=== PATIENT | male | born 1945 | race Caucasian/White ===

== ENCOUNTER → 2020-01-19 07:20 | Outpatient (CLI) | payer MEDICARE, BC, SELFPAY ==
--- NOTE | 2020-01-19 15:05 | NEURO ---
NCS and/or EMG Patient Report Ordering Doctor: Deuce Coughlin Jr. DATE OF SERVICE: 01/19/20 Amado Hart is a 74-year-old male who presents for electrodiagnostic testing of the left upper limb. He reports numbness and tingling in the left hand. Electrodiagnostic findings: Left median motor nerve demonstrates prolonged distal latency with normal amplitude and conduction velocity. Normal left ulnar motor response. Normal left median ulnar F wave. Prolonged median sensory latency at the wrist. On needle EMG, all muscles tested in the left upper limb showed no evidence of denervation with normal motor unit action potentials. Electrodiagnostic impression: This is an abnormal study in the left upper limb. 1. Electrodiagnostic findings demonstrate left-sided median mononeuropathy. This consistent with a moderate left carpal tunnel syndrome. If there are any further questions, please do not hesitate to contact me.
--- OUTSIDE RECORDS SUMMARY | 2020-05-21 14:59 | XMS RPT_ITS | CCD ---
:1945 External Reference #:[id number] Author Organization [facility] Care Team Providers Name Role Phone Sylvia Coughlin Primary Care Provider Allergies Reported Allergen Reaction(s) Severity Date of Onset Location Lisinopril Cough 11-14-2011 - [facility] ([id number]) Simvastatin 06-22-2009 - [facility] ([id number]) Medications Medication Name Sig Date Prescriber Location fluticasone [facility]ON[facility]) [facility] 50 mcg/actuation [place]angel[place] ([id number]) nasal spray Indications: Viral sinusitis Use 2 Sprays in each nostril once daily. Rinse mouth after use. 1 Bottle 0 06/27/2019 Active Comment: Use 2 Sprays in each nostril once daily. Rinse mouth after use. Losartan losartan (COZAAR) 50 mg 10-04-2019 [facility] (99247) tablet Indications: Essential hypertension Take 1 tablet by mouth once daily. 90 tablet 3 10/04/2019 Active Comment: Take 1 tablet by mouth once daily. venlafaxine EFFEXOR 25 MG TAB Take 07-15-2006 [facility] one(1) tablet twice (28780) daily. 0 07/15/2006 Active Comment: Take one(1) tablet twice dacia ly. Problems Active Problems Category Problem Name Status Date Location Anxiety disorders Chronic anxiety Active 10-29-2018 - [facility] (26689) Disorders of lipid Hyperlipidemia Active 07-13-2013 - [facility] metabolism (18570) Essential hypertension Hypertensive disorder Active 2 - [facility] (78917) Hyperplasia of prostate Benign prostatic Active 08-08-2006 - [facility] hypertrophy with (27434) outflow obstruction Other male genital Impotence Active 03-30-2013 - [facility] disorders (01207) Other male genital Male erectile Active 03-30-2013 - [facility] disorders dysfunction, (67369) unspecified Other nervous system Carpal tunnel syndrome Active [facility] disorders of left wrist (57124) Other nervous system Bilateral carpal tunnel Active [facility] disorders syndrome (68299) Other nutritional; Obese class I Active 10-04-2019 - [facility] endocrine; and metabolic (44 195) disorders Residual codes; Requires vaccination Active [facility] unclassified (16933) Spondylosis; Cervical disc disorder Active 09-03-2011 - [facility] intervertebral disc with radiculopathy (4 8806) disorders; other back problems Past or Other Problems Category Problem Name Status Date Location Other inflammatory Pruritus ani Completed 12-27-2010 - [facility] condition of skin (80036) Results Result Name Value Range Unit Interpretation Flag Date Location cnnurse on [facility] Nurse Visit (FAMPWS) Normal 0 [facility] JOELLE MARIEE ([id number]) 1945 M [facility] Time Provider Department ([id number]) 05/12/20 2:10 PM PR NURSE FAMPWS During your visit today, we recorded the following informati on about you: Referring Provider: SELF [[id number]] Allergies As of Date: 05/12/2020 Noted Allergy Reaction LISINOPRIL 11/14/2011 3 - Cough ZOCOR (SIMVASTATIN) 06/22/2009 Comments: myalgia Date Reviewed: 05/01/2020 Reviewed by: Bradly Sahu - Fully Assessed Reason for Visit: Imm/Inj [58] Cmt: Flu Vaccine Primary Visit Diagnosis:Need for vaccination [Z23] Order(s):INFLUENZA SEASONAL QUADRIVALENT HIGH DOSE AGE 65+ [[id number]] Order #: [id number] Prescriptions as of 05/12/2020 Sig: LOSARTAN 50 MG TABLET Take 1 tablet by mouth once d* FLUTICASONE PROPIONATE 50 MCG* Use 2 Sprays in each nostril * Patient not taking: Reported on 03/16/2020 * EFFEXOR 25 MG TABLET Take one(1) tablet twice willie* Problem List As Of Date 05/12/2020 Noted Resolved BPH with obstruction/lower urinary tract sympto*08/08/2006 Other specified disease of hair and hair follic*08/08/2006 0 10/04/2019 Dysmetabolic syndrome X [E88.81] 08/08/2006 10/04/2019 Acute gastritis without mention of hemorrhage [*10/28/2006 1 10/01/2015 Pruritus ani [L29.0] 12/27/2010 Cervical disc disorder with radiculopathy of ce*09/03/2011 Hypertension [I10] 09/26/2011 ED (erectile dysfunction) [N52.9] 03/30/2013 Trigger ring finger of right hand [M65.341] 07/12/201310/03 Hyperlipidemia with target LDL less than 130 [E*07/13/2013 Impaired fasting glucose [R73.01] 07/31/2016 10/04/2019 Changeable mood [R45.86] 09/01/2017 10/04/2019 More... Chronic anxiety [F41.9] 10/29/2018 Obesity, Class I, BMI 30-34.9 [E66.9] 10/04/2019 Carpal tunnel syndrome of left wrist [G56.02] Encounter Status:Closed by ARLET SÁNCHEZ LPN on 05/12/20 progress on 2020-04 PROGRESS HNO ID: [id number] Normal 05-01-2020 [facility] Author: Bradly Blue ([id number]) Service: ? Author Type: Physician Type: Progress Notes Filed: 05/01/2020 1:25 PM Note Text: Bradly Sahu MD Department of Orthopaedics Orthopaedics [address] [facility] [address] Dept: [phone] Dept May 01, 2020 CHIEF COMPLAINT: Post Op of the Right Hand, Post Op of the L eft Hand, and 1 week 4 days post op (bilateral CTR). HPI Is 11 days status post bilateral carpal tunnel releases. He is doing great. He has improvement in all of his symptoms already. He has no postoperative pain. He is here for suture removal. ASSESSMENT: G56.03 Bilateral carpal tunnel syndrome (primary encounter d lexie) SUMMARY/PLAN: Follow-up as needed Exam: Bilateral incisions look excellent. Healing very nicely with out concerns. Supporting Information Below: Medications: Current Outpatient Medications Medication Sig - losartan (COZAAR) 50 mg tablet Take 1 tablet by mouth once daily. - EFFEXOR 25 MG TAB Take one(1) tablet twice daily. - fluticasone (FLONASE) 50 mcg/actuation nasal spray Use 2 S prays in each nostril once daily. Rinse mouth after use. (Patient not cecy quiroz: Reported on 03/16/2020 ) No current facility-administered medications for this visit. Allergies: Lisinopril and Zocor [Simvastatin] This note was partially generated using [employer] recogni tion system, and there may be some incorrect words, spellings, and punctu ation that were not noted in checking the note before saving. Bradly Sahu MD PROGRESS HNO ID: [id number] Normal 05-01-2020 [facility] Author: Pretty Clark RN [facility] ([id number]) Service: ? Author Type: ? Type: Progress Notes Filed: 05/01/2020 1:25 PM Note Text: AMB ROOMING INTAKE FLOWSHEET DATA Patient presents with: Right Hand - Post Op Left Hand - Post Op 1 week 4 days post op: bilateral CTR Incisions well approximated and without redness, edema or ex udate. Sutures intact. has needed nothing for pain. cnov on 2020-05-01 CNOV Office Visit (ORTHWS) Normal 05-01-20 [facility] JOELLE Christy ([id number]) 1945 [facility] [place] Date Time Provider Department ([id number]) 05/01/20 1:00 PM BRADLY SAHU During your visit today, we recorded the following informati on about you: Pretty Clark RN 05/01/2020 1:25 PM Signed AMB ROOMING INTAKE FLOWSHEET DATA Patient presents with: Right Hand - Post Op Left Hand - Post Op 1 week 4 days post op: bilateral CTR Incisions well approximated and without redness, edema or ex udate. Sutures intact. has needed nothing for pain. Bradly Sahu MD 05/01/2020 1:25 PM Signed Bradly Sahu MD Department of Orthopaedics Orthopaedics [address] [facility] [address] Dept: [phone] Dept May 01, 2020 CHIEF COMPLAINT: Post Op of the Right Hand, Post Op of the Left Hand, and 1 week 4 days post op (bilateral CTR). HPI Is 11 days status post bilateral carpal tunnel releases. Sheri traore is doing great. He has improvement in all of his symptoms already. He has no postoperative pain. He is here for suture removal. ASSESSMENT: G56.03 Bilateral carpal tunnel syndrome (primary encounter d iagnosis) SUMMARY/PLAN: Follow-up as needed Exam: Bilateral incisions look excellent. Healing very nicely with out concerns. Supporting Information Below: Medications: Current Outpatient Medications Medication Sig - losartan (COZAAR) 50 mg tablet Take 1 tablet by mouth once daily. - EFFEXOR 25 MG TAB Take one(1) tablet twice daily. - fluticasone (FLONASE) 50 mcg/actuation nasal spray Use 2 S prays in each nostril once daily. Rinse mouth after use. (Patient ashish dunham: Reported on 03/16/2020 ) No current facility-administered medications for this visit. Allergies: Lisinopril and Zocor [Simvastatin] This note was partially generated using [employer] r [employer] system, and there may be some incorrect words, spellings, and punctuat ion that were not noted in checking the note before saving. Bradly Sahu MD Referring Provider: BRADLY SAHU [[id number]] Allergies As of Date: 05/01/2020 Noted Allergy Reaction LISINOPRIL 11/14/2011 3 - Cough ZOCOR (SIMVASTATIN) 06/22/2009 Comments: myalgia Date Reviewed: 05/01/2020 Reviewed by: Bradly Sahu - Fully Assessed Reason for Visit: 1 week 4 days post op [Other] Cmt: bilateral CTR Post Op [174] Post Op [174] Primary Visit Diagnosis:Bilateral carpal tunnel syndrome [G5 6.03] Prescriptions as of 05/01/2020 Sig: LOSARTAN 50 MG TABLET Take 1 tablet by mouth once d* * EFFEXOR 25 MG TABLET Take one(1) tablet twice willie* FLUTICASONE PROPIONATE 50 MCG* Use 2 Sprays in each nostril * Patient not taking: Reported on 03/16/2020 Problem List As Of Date 05/01/2020 Noted Resolved BPH with obstruction/lower urinary tract sympto*08/08/2006 Other specified disease of hair and hair follic*08/08/2006 0 10/04/2019 Dysmetabolic syndrome X [E88.81] 08/08/2006 10/04/2019 Acute gastritis without mention of hemorrhage [*10/28/2006 1 10/01/2015 Pruritus ani [L29.0] 12/27/2010 Cervical disc disorder with radiculopathy of ce*09/03/2011 Hypertension [I10] 09/26/2011 ED (erectile dysfunction) [N52.9] 03/30/2013 Trigger ring finger of right hand [M65.341] 07/12/201310/03 Hyperlipidemia with target LDL less than 130 [E*07/13/2013 Impaired fasting glucose [R73.01] 07/31/2016 10/04/2019 Changeable mood [R45.86] 09/01/2017 10/04/2019 More... Chronic anxiety [F41.9] 10/29/2018 Obesity, Class I, BMI 30-34.9 [E66.9] 10/04/2019 Carpal tunnel syndrome of left wrist [G56.02] Encounter Status:Closed by BRADLY SAHU MD on 05/01/20 pt ed on 2020-04-20 PT ED HNO ID: [id number] Normal 04-20-2020 [facility] Author: Tristan (Rn) KORTNEY Joyner Blue ([id number]) Service: Nursing Author Type: Registered Nurse Type: Patient Education Filed: 04/20/2020 1:55 PM Note Text: Discharge Instructions were reviewed pre-operatively with th e patient. All questions and concerns were addressed. Tristan Joyner RN PRE OP LEARNING ASSESSMENT PROCEDURE/SURGERY: SURGERY: RIGHT AND LEFT CARPAL TUNNEL REL EASE READINESS TO LEARN COGNITIVE ABILITY: Alert and oriented MOTIVATION TO LEARN: Eager Interested FAMILY SUPPORT: None - Unavailable/disinterested PATIENT LEARNS BEST BY: Individual Instruction Verbal Instruction FACTORS AFFECTING LEARNING: None PHYSICAL LIMITATIONS AFFECTING LEARNING: None Electronically Signed By: Tristan Joyner RN In Department: AMBULATORY SURGERY operative no on OPERATIVE NO HNO ID: [id number] Normal 04-20-20 20 [facility] Author: Bradly Sahu [place] [facility] Service: Orthopaedic Surgery ([id number]) Author Type: Physician Type: Operative Report Filed: 04/21/2020 2:41 PM Note Text: OPERATIVE/PROCEDURE REPORT LOG ID: [id number] SURGERY/PROCEDURE DATE: 04/20/2020 INCISION/PROCEDURE START TIME: 2:03 PM INCISION CLOSE/PROCEDURE END TIME: 2:37 PM SURGEON(S)/PROCEDURALIST(S) AND PRODUCT DEVELOPER(S): Surgeon(s) and Role: * Bradly Sahu - Primary No Additional Staff NAME:Joelle Mariee [id number] DATE: April 21, 2020 AGE: [age] year old SURGEON 1: Bradly Sahu M.D. OPERATION: Bilateral carpal tunnel release, open. ANESTHESIA: MAC with local. PREOPERATIVE DIAGNOSIS: Bilateral carpal tunnel syndrome. POSTOPERATIVE DIAGNOSIS: Bilateral carpal tunnel syndrome. OPERATIVE INDICATIONS: This is a pleasant 74 year old male w ho had worsening, numbness, and tingling. His declined nerve testin g. He exhausted conservative management and in the office, we disc ussed the risks, benefits, alternatives, and potential complications i nvolving carpal tunnel releases and he wished to pursue surgical inte rvention. OPERATIVE FINDINGS: Consistent with postoperative diagnosis. ? Procedure Details: OPERATIVE PROCEDURE: On 04/20/2020, the patient was clearly i dentified in the preoperative area and marked accordingly on the right an d left palms by myself. All other bony landmarks were appropriately padde d in standard fashion. The right upper extremity had a well-padded upper b rachium tourniquet applied with Webril padding and set at 250 mmHg, but not yet inflated. After a betadine swab, the Right and left palms we re injected with 1% lidocaine with epinepherine 1:100,000 for total of 1 5ml, each. The left arm was then, first sterilely prepped and draped in standard fashion. An appropriate time-out was conducted and all in th e room were in agreement, signed consent form was on the chart. A longitudi nal incision was made with in line with the third web space from 1 cm dis geovani of the wrist crease to Avila's cardinal line. I used Bib Rakes to retract the soft tissues. Bipolar electrocautery was used for hemostasis . I bluntly dissected down with Littler scissors to distal edge of the t ransverse carpal ligament until a flash of fat was noted. I directly divided distal edge of the transverse carpal ligament with a #15 john de. Attention was then focused on the proximal portion and I used Littler scissors to bluntly dissect off the volar surface of the transverse carp al ligament. A carpal tunnel and median nerve protection guide was slid d irectly under the ligament for dilation and a second time for appropriate positioning, this was passed freely without any resistance. Subsequently, I selected a mini meniscotome Acworth blade and slid this in the protectiv e guide, completely dividing the transverse carpal ligament. Bib brian es were used to view up the wound to visualize for complete release and a [place] elevator was used to palpate for complete release. At this p oint, The wound was copiously irrigated with normal saline and I close d with 3-0 nylons in horizontal mattress fashion for a total of 3. Xero form gauze, sterile 4 x 4 gauze, sterile, Webril padding was applied. ? I then turned my focused to the right upper extremity. The e xact same steps in sequential fashion were carried out on the right si de, without the need for a tourniquet, as was outlined previously on the left above. At the completion of the procedure, the median nerve was not ed to be completely released both visually and with palpation of the transected Transverse carpal ligament. The wound was copiously irrigate d, tourniquet was taken down. Closure with again completed with 3-0 nylons in horizontal mattress fashion. Xeroform gauze, sterile 4 x 4 g auze, webril padding and a Bias roll was used for final bandage for each hand. There were no complications during the procedures. The patient was safely awoken and transferred to the Postanesthetic Care Unit in stable co ndition. ? ? Pre-Op/Pre-Procedure Diagnosis: Bilateral carpal tunnel synd naty. ? Post-Op/Post-Procedure Diagnosis: Same ? SIGNATURE: Bradly Sahu MD PATIENT NAME: Joelle Mariee DATE: April 20, 2020 TIME: 3:05 PM PAGER/CONTACT #: nursing prog NURSING PROG HNO ID: [id number] [place] 04-20-20 [facility] Author: Trisatn Joyner RN [place] ([id number]) Service: Nursing Author Type: Registered Nurse Type: Nursing Progress Note Filed: 04/20/2020 3:18 PM Note Text: Patient did not experience a fall prior to discharge. Patient did not experience a burn prior to discharge. Tristan Joyner RN NURSING PROG HNO ID: [id number] [place] 04-20-20 [facility] Author: Tristan Joyner RN [place] ([id number]) Service: Nursing Author Type: Registered Nurse Type: Nursing Progress Note Filed: 04/20/2020 3:17 PM Note Text: POST OP LEARNING RESPONSE INSTRUCTION PROVIDED TO: Patient METHOD OF INSTRUCTION: Individual instruction Written instruction - handouts Verbal instruction PATIENT / FAMILY RESPONSE: Information received as demonstra romario by interest and questions FOLLOW-UP PLAN: Patient instructed to call with any further issues SUPPLEMENTAL MATERIAL: None REFERRAL (RECOMMENDATION): None Electronically Signed By: Tristan Joyner RN In Department: AMBULATORY SURGERY NURSING PROG HNO ID: [id number] [place] 04-20-20 [facility] Author: Tristan Joyner RN [place] ([id number]) Service: Nursing Author Type: Registered Nurse Type: Nursing Progress Note Filed: 04/20/2020 2:48 PM Note Text: Patient received in Pacu 2. Resting comfortably sitting in b ed. Color pink. Skin warm. Dressing clean dry and intact . Capillary refill WNL. Ice pack applie d to operative site. No complaints offered. Alfredo Joyner Rn NURSING PROG HNO ID: [id number] [place] 04-20-20 [facility] Author: Heaven Mars RN [place] ([id number]) Service: ? Author Type: Registered Nurse Type: Nursing Progress Note Filed: 04/20/2020 2:43 PM Note Text: Patient did not experience a fall within the Intraoperative area. Patient did not experience a burn within the Intraoperative area. Heaven Mars RN NURSING PROG HNO ID: [id number] Normal 04-20-20 [facility] Author: Tristan RodriguezRn) KORTNEY Joynerveland ([id number]) Service: Nursing Author Type: Registered Nurse Type: Nursing Progress Note Filed: 04/20/2020 1:56 PM Note Text: [facility] PRE-OP NURSING HAND OFF NOTE SBAR Hand off given to Caryl Fischer RN. Hand off was communicated verbally and at the patient's beds ronen and all questions were answered. FALLS/CORDERO Patient did not experience a fall within the Preoperative ar ea. Patient did not experience a burn within the Preoperative ar ea. Tristan Joyner RN history physical on 2020-04-20 HISTORY PHYSICAL HNO ID: [id number] Normal 04-04 [facility] Author: Bradly Blue ([id number]) Service: Orthopaedic Surgery Author Type: Physician Type: HANDP Filed: 04/20/2020 1:50 PM Note Text: UPDATED HISTORY AND PHYSICAL EXAMINATION SERVICE DATE: 04/20/2020 SERVICE TIME: 1:50 PM PHYSICAL EXAM MUST BE COMPLETED ON ADMISSION The History and Physical (completed in the past 30 days) has been reviewed and the patient has been examined. The contents accurately r eflect the patient's condition with the following additions or revision s since the HANDP was completed. Examination indicates no changes. This HANDP can be found in the Electronic Medical Record danielle ed. SIGNATURE: Bradly Sahu MD PATIENT NAME: Joelle Mariee DATE: April 20, 2020 TIME: 1:50 PM PAGER: preop/preproc covid on 2020-04-18 COVID 19 Result Negative for Negative for Normal 04-18-20 [facility] HOT ROLL LAMINATOR COVID19 (SARS COVID19 (SARS Cl miguelito ([id number]) CoV2) by PCR. CoV2) by PCR. Comment: Result Comment: This test wa s developed and its performance characteristics determined by [facility]'s [facility] Medicine [place]. This test has been authorized by FDA under an Emergency Us e Authorization (EUA). This test has been validated in accordance with the FDA's Guidance Document Policy for Diagnostics Testing in Laboratories Certified to Perform High Complexity Testing under CLIA prior to Emergency use Authorization for Coronavir us Disease 2019 during the Public Health Emergency issued on October 02, 2019. Performed By: #### POCOVD ## ## [facility] [address] [place], [place] [address] COVID 19 Source HOT ROLL LAMINATOR UPPER RESPIRATORY TRACT Normal 04-18-2020 [facility] SWAB Blue ([id number]) Comment: Performed By: #### POCOVD ## ## [facility] [address] [place], [place] [address] hosp on 2020-03-21 HOSP Patient:Joelle Mariee Normal 03-21 [facility] MRN: Mirza ([id number]) Height:5' 8(1.727 m) Weight:214 lb 15.2 oz (97.5 kg) Outpatient Medications as of 04/20/20: losartan (COZAAR) 50 mg tablet fluticasone (FLONASE) 50 mcg/actuation nasal spray EFFEXOR 25 MG TAB Admission/Clinic Administered Medications as of 04/20/20: lidocaine-EPINEPHrine (PF) 1 %-1:200,000 30 mL injection lidocaine-EPINEPHrine (PF) 1 %-1:200,000 30 mL injection Problem List: BPH with obstruction/lower urinary tract symptoms [N40.1, 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] Pruritus ani [L29.0] Cervical disc disorder with radiculopathy of cervical region [M50.10] Hypertension [I10] ED (erectile dysfunction) [N52.9] Hyperlipidemia with target LDL less than 130 [E78.5] Chronic anxiety [F41.9] Obesity, Class I, BMI 30-34.9 [E66.9] Carpal tunnel syndrome of left wrist [G56.02] Allergies: Lisinopril Zocor [Simvastatin] Date Verified: 04/20/20 Lab Values No results within the last 30 days for the following basenam es: K,HCT Progress Notes ([facility]): Krissy Farley Ma 03/21/2020 2:36 PM Signed Patient scheduled for bilateral CTR on 04/20/2020 at [facility] under local anesthesia. Post op appointments scheduled and m jean claude to patient. Please sign pre op COVID 19 testing order. Savannah Patel PA-C 03/21/2020 2:43 PM Signed COVID order signed. Krissy Farley Ma 03/24/2020 3:34 PM Signed Surgery and all appointments have been scheduled and mailed to patient. cnpn on 2020-03-21 CNPN Telephone (ORTHWS) Normal 03-21-2020 [facility] JOELLE MARIEE ([id number]) 1945 [facility] Time Provider Department ([id number]) 03/21/20 BRADLY SAHU During your visit today, we recorded the following informati on about you: Krissy Farley Ma 03/21/2020 2:36 PM Signed Patient scheduled for bilateral CTR on 04/20/2020 at [facility] under local anesthesia. Post op appointments scheduled and m jean claude to patient. Please sign pre op COVID 19 testing order. Savannah Patel PA-C 03/21/2020 2:43 PM Signed COVID order signed. Krissy Farley Ma 03/24/2020 3:34 PM Signed Surgery and all appointments have been scheduled and mailed to patient. Allergies As of Date: 03/21/2020 Noted Allergy Reaction LISINOPRIL 11/14/2011 3 - Cough ZOCOR (SIMVASTATIN) 06/22/2009 Comments: myalgia Date Reviewed: 03/16/2020 Reviewed by: Bradly Sahu - Fully Assessed Reason for Visit: Schedule Surgery [1330] Primary Visit Diagnosis:Bilateral carpal tunnel syndrome [G5 6.03] Order(s):SURGICAL REQUEST - ELECTIVE (03/2020) [[id number]] Orde r #: [id number]: 1 PRE-PROCEDURE AND PRE-OPERATIVE COVID [SQPOCOVD] Order #: [id number] FUTURE Prescriptions as of 03/21/2020 Sig: LOSARTAN 50 MG TABLET Take 1 tablet by mouth once d* FLUTICASONE PROPIONATE 50 MCG* Use 2 Sprays in each nostril * Patient not taking: Reported on 03/16/2020 * EFFEXOR 25 MG TABLET Take one(1) tablet twice willie* Problem List As Of Date 03/21/2020 Noted Resolved BPH with obstruction/lower urinary tract sympto*08/08/2006 Other specified disease of hair and hair follic*08/08/2006 0 10/04/2019 Dysmetabolic syndrome X [E88.81] 08/08/2006 10/04/2019 Acute gastritis without mention of hemorrhage [*10/28/2006 1 10/01/2015 Pruritus ani [L29.0] 12/27/2010 Cervical disc disorder with radiculopathy of ce*09/03/2011 Hypertension [I10] 09/26/2011 ED (erectile dysfunction) [N52.9] 03/30/2013 Trigger ring finger of right hand [M65.341] 07/12/201310/03 Hyperlipidemia with target LDL less than 130 [E*07/13/2013 Impaired fasting glucose [R73.01] 07/31/2016 10/04/2019 Changeable mood [R45.86] 09/01/2017 10/04/2019 More... Chronic anxiety [F41.9] 10/29/2018 Obesity, Class I, BMI 30-34.9 [E66.9] 10/04/2019 Carpal tunnel syndrome of left wrist [G56.02] Encounter Status:Closed by KRISSY FARLEY MA on 03/24/20 progress on 2020-03 PROGRESS HNO ID: [id number] Normal 03-16-2020 [facility] Author: Bradly Sahu [place] Service: ? ([id number]) Author Type: Physician Type: Progress Notes Filed: 03/16/2020 1:13 PM Note Text: Bradly Sahu MD Department of Orthopaedics Orthopaedics [address] [place] [address] Dept: [phone] Dept March 16, 2020 CHIEF COMPLAINT: New of the Left Wrist and Left carpal tunne l syndrome (Referrred by Dr. Raysa Coughlin - EMG done on 01/19/20) HPI Patient presents with some ongoing problems in the left hand . 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 No specific pain bu t does have nighttime symptoms. He also has symptoms when he is riding h is tractor. [id number]. Previous nerve test done at local [facility]. ASSESSMENT: G56.03 Bilateral carpal tunnel syndrome (primary encounter d iagnosis) PLAN: We had a lengthy discussion in the office. The risks, benefi ts, alternatives and potential complications both operative and nonoperative treatment for the left carpal tunnel as well as the right wi thout other electrodiagnostic exam on the right were reviewed. He would like to pursue bilateral surgeries under local anesthetic. We will h elp get him scheduled. FOLLOW UP INSTRUCTIONS: As above Mr. Joelle Mariee was advised as to contrast therapies an d/or to take analgesics/anti-inflammatories as needed and all contraindic ations were reviewed. OBJECTIVE: Mr. Joelle Mariee is a pleasant 74 year old in no apparen t distress. Gen:Ht 5' 8 (1.73m) Wt 215 lb (97.5kg) BMI 32.70 kg/(m2 ). nl development, non obese, no deformities ENT: Normocephalic, normal hearing, moist mucosa CV: Pulses:Radial= 2+ and symmetric, capillary refill < 2 se cs, no peripheral edema/varicosities Skin: no rash, bruising or lesions. Good turgor. Psych: cooperative and appropriate, alert and oriented x 3, good mood and affect. Musculoskeletal: Cervical spine has supple range of motion and no tenderness to palpation, Spurling's sign negative. Shoulders and elbows have full ran ge of motion. Negative Tinel's over the cubital tunnel, no subluxation of ulnar nerve at the elbow with flexion. Negative Tinel's over Guyon's can al. Inspection reveals no thenar atrophy. Intact sensation to li ght touch in the radial 3 digits, symmetrically. Sensation intact in the ulnar 2 digits with out intrinsic atrophy/weakness. Positive Tinel's at the wrist, positive carpal tunnel compression testing on the lef t worse than right. No locking or catching of the digits. No tenderness t o palpation or masses noted in the forearm or hands. IMAGING: Electrodiagnostic exam from an outside facility on the left suggest moderate carpal tunnel without any cervical involvement. Supporting Subjective Information Below: Past Medical History: PAST MEDICAL HISTORY Diagnosis Date - BPH W URINARY OBS/LUTS 08/08/2006 - Carpal tunnel syndrome of left wrist - Cervical disc disorder with radiculopathy of cervical perico on 09/03/2011 - Changeable mood 09/01/[address] Myers - ED (erectile dysfunction) 03/30/2013 - Family history of malignant neoplasm lung ca - Hyperlipidemia LDL goal < 130 07/13/2013 - Hypertension 09/26/2011 Past Surgical History: PAST SURGICAL HISTORY Procedure Laterality Date - COLONOSCOP W/ OR W/O BRS SPEC 2001 Colonoscopy - COLONOSCOP W/ OR W/O BRSH SPEC 10/28/2006 Colonoscopy-repeat in - COLONOSCOP W/ OR W/O BRSH SPEC 02/25/2012 Colonoscopy - COLONOSCOP W/ OR W/O BRSH SPEC 07/08/2017 Colonoscopy - EGD W/O OR W/BRUSH/WASH 10/28/2006 EGD Family History: FAMILY HISTORY Problem Relation Age of Onset - Cancer Mother lung - Cancer Father COLON - None Sister - None Brother - Diabetes Brother Social History: Social History Tobacco Use - Smoking status: Former Smoker - Smokeless tobacco: Never Used - Tobacco comment: quit 1970s Substance Use Topics - Alcohol use: No Frequency: Never Drinks per session: Patient refused Binge frequency: Patient refused - Drug use: No Medications: Current Outpatient Medications Medication Sig - losartan (COZAAR) 50 mg tablet Take 1 tablet by mouth once daily. - EFFEXOR 25 MG TAB Take one(1) tablet twice daily. - fluticasone (FLONASE) 50 mcg/actuation nasal spray Use 2 S prays in each nostril once daily. Rinse mouth after use. (Patient not cecy ng: Reported on 03/16/2020 ) No current facility-administered medications for this visit. Allergies: Lisinopril and Zocor [Simvastatin] ROS: General (negative for fatigue, malaise, weight loss/gain) HEENT (negative for headache, earache, recent vision changes , sinus pain, sore throat) Respiratory (no recent shortness of breath, hemoptysis) CV (negative for chest tightness, palpitations) Musculoskeletal (see HPI) Psych (no depression, anxiety) REFERRING PHYSICIAN: Mr. Joelle Mariee was referred to me for consultation by the following physician. This consultation n ote will be sent to the following physician by either mail or electronic medical record. Raysa Coughlin III MD [address] [facility] [address] Raysa Coughlin III MD [address] [facility] [address] This note was partially generated using [employer] system, and there may be some incorrect words, spellings, and punctu ation that were not noted in checking the note before saving. Bradly Sahu MD PROGRESS HNO ID: [id number] Normal 03-16-2020 [facility] Author: Andra Del Cid Ma [place] Service: ? ([id number]) Author Type: ? Type: Progress Notes Filed: 03/16/2020 1:13 PM Note Text: Patient presents with: Left Wrist - New Left carpal tunnel syndrome: Referrred by Dr. Raysa Coughlin - EMG done on 01/19/20 [facility] ROOMING INTAKE FLOWSHEET DATA Risk Screening Do you have concerns about personal safety or safety in the home?: No Pain Pain Location: Wrist-Left Description: Numbness, Tingling Duration Amount of Time: 20 Duration Units: Years Frequency: Intermittent Patient states he has had numbness and tingling in his whole hand. 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 Patient feels i t may he have some shoulder problems. Patient is right hand dominant. EMG done at [facility] on 01/19/20. 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 Arnoldo ing no med's for the pain. cnov on 2020-03-16 CNOV Office Visit (ORTHWS) Normal 03-16-20 [place] [facility] KENYETTA MARIEEDORA Fuentes ([id number]) 1945 [facility] Date Time Provider Department ([id number]) 03/16/20 11:00 AM BRADLY SAHU During your visit today, we recorded the following informati on about you: Weight Height 97.5 kg 1.727 m Andra Del Cid Ma 03/16/2020 1:13 PM Signed Patient presents with: Left Wrist - New Left carpal tunnel syndrome: Referrred by Dr. Raysa Coughlin - EMG done on 01/19/20 [facility] ROOMING INTAKE FLOWSHEET DATA Risk Screening Do you have concerns about personal safety or safety in the home?: No Pain Pain Location: Wrist-Left Description: Numbness, Tingling Duration Amount of Time: 20 Duration Units: Years Frequency: Intermittent Patient states he has had numbness and tingling in his whole hand. 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 Patient feels it may he have some shoulder problems. Patient is right hand dominant. EMG done at [facility] on 01/19/20. 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 Taking no med's for the pain. Bradly Sahu MD 03/16/2020 1:13 PM Signed Bradly Sahu MD Department of Orthopaedics Orthopaedics [address] [place] [id number] Dept: [phone] Dept March 16, 2020 CHIEF COMPLAINT: New of the Left Wrist and Left carpal tunne l syndrome (Referrred by Dr. Raysa Coughlin - EMG done on 01/19/20) HPI Patient presents with some ongoing probl ems in the left hand. He thought maybe it was related to his neck b ut he is getting numbness and tingling and dropping items losing bottle washing machine operator strength. No specific pain but does have nighttime symptoms. He also has symptoms when he is riding his tractor. Right-cardoza nd-dominant. Previous nerve test done at local facility. ASSESSMENT: G56.03 Bilateral carpal tunnel syndrome (primary encounter d iagnosis) PLAN: We had a lengthy discussion in the office. The risks, benefits, alternatives and potential complications both operative and n onoperative treatment for the left carpal tunnel as well a s the right without other electrodiagnostic exam on the right were reviewed. He would like to pursue bilateral s urgeries under local anesthetic. We will help get him scheduled. FOLLOW UP INSTRUCTIONS: As above Mr. Joelle Mariee was advised as to contrast therapies an d/or to take analgesics/anti-inflammatories as needed and all contraindic ations were reviewed. OBJECTIVE: Mr. Joelle Mariee is a pleasant 74 year old in no apparen t distress. Gen:Ht 5' 8 (1.73m) Wt 215 lb (97.5kg) BMI 32.70 kg/(m2 ). nl development, non obese, no deformities ENT: Normocephalic, normal hearing, moist mucosa CV: Pulses:Radial= 2+ and symmetric, capillary r efill < 2 secs, no peripheral edema/varicosities Skin: no rash, bruising or lesions. Good turgor. Psych: cooperative and appropriate, alert and oriented x 3, good mood and affect. Musculoskeletal: Cervical spine has supple range of motion and no tenderness to palpation, Spurling's sign negative. Shoulders and elbows have full ran ge of motion. Negative Tinel's over the cubital tunnel , no subluxation of ulnar nerve at the elbow with flexion. Negative Tinel's over Guyon's canal. I nspection reveals no thenar atrophy. Intact sensation to light touch in the ra dial 3 digits, symmetrically. Sensation intact in the ulnar 2 digits with o ut intrinsic atrophy/weakness. Positive Tinel's at the wrist, positive ca rpal tunnel compression testing on the left worse than right. No locki ng or catching of the digits. No tenderness to palpation or masses noted in th e forearm or hands. IMAGING: Electrodiagnostic exam from an outside facility on the left suggest moderate carpal tunnel without any cervical involvement. Supporting Subjective Information Below: Past Medical History: PAST MEDICAL HISTORY Diagnosis Date - BPH W URINARY OBS/LUTS 08/08/2006 - Carpal tunnel syndrome of left wrist - Cervical disc disorder with radiculopathy of cervical perico on 09/03/2011 - Changeable mood 09/01/[address] Myers - ED (erectile dysfunction) 03/30/2013 - Family history of malignant neoplasm lung ca - Hyperlipidemia LDL goal < 130 07/13/2013 - Hypertension 09/26/2011 Past Surgical History: PAST SURGICAL HISTORY Procedure Laterality Date - COLONOSCOP W/ OR W/O BRSH SPEC 2001 Colonoscopy - COLONOSCOP W/ OR W/O BRSH SPEC 10/28/2006 Colonoscopy-repeat in - COLONOSCOP W/ OR W/O BRSH SPEC 02/25/2012 Colonoscopy - COLONOSCOP W/ OR W/O RUST SPEC 07/08/2017 Colonoscopy - EGD W/O OR W/BRUSH/WASH 10/28/2006 EGD Family History: FAMILY HISTORY Problem Relation Age of Onset - Cancer Mother lung - Cancer Father COLON - None Sister - None Brother - Diabetes Brother Social History: Social History Tobacco Use - Smoking status: Former Smoker - Smokeless tobacco: Never Used - Tobacco comment: quit 1970s Substance Use Topics - Alcohol use: No Frequency: Never Drinks per session: Patient refused Binge frequency: Patient refused - Drug use: No Medications: Current Outpatient Medications Medication Sig - losartan (COZAAR) 50 mg tablet Take 1 tablet by mouth once daily. - EFFEXOR 25 MG TAB Take one(1) tablet twice daily. - fluticasone (FLONASE) 50 mcg/actuation nasal spray Use 2 S prays in each nostril once daily. Rinse mouth after use. (Patient not ta charla: Reported on 03/16/2020 ) No current facility-administered medications for this visit. Allergies: Lisinopril and Zocor [Simvastatin] ROS: General (negative for fatigue, malaise, weight loss/gain) HEENT (negative for headache, earache, r ecent vision changes, sinus pain, sore throat) Respiratory (no recent shortness of breath, hemoptysis) CV (negative for chest tightness, palpitations) Musculoskeletal (see HPI) Psych (no depression, anxiety) REFERRING PHYSICIAN: Mr. Joelle Mariee was re ferred to me for consultation by the following physician. This consultation note will be s ent to the following physician by either mail or electronic medical rec ord. Raysa Coughlin III MD [id number] [facility] [address] Raysa Coughlin III MD [address] [facility] [address] This note was partially generated using [employer] system, and there may be some incorrect words, spellings, and punctuat ion that were not noted in checking the note before saving. Bradly Sahu MD Referring Provider: RAYSA COUGHLIN III [[id number]] Allergies As of Date: 03/16/2020 Noted Allergy Reaction LISINOPRIL 11/14/2011 3 - Cough ZOCOR (SIMVASTATIN) 06/22/2009 Comments: myalgia Date Reviewed: 03/16/2020 Reviewed by: Bradly Sahu - Fully Assessed Reason for Visit: Left carpal tunnel syndrome [Other] Cmt: Referrred by Dr. Raysa Coughlin - EMG done on 01/19/20 New [[id number]] Primary Visit Diagnosis:Bilateral carpal tunnel syndrome [G5 6.03] Prescriptions as of 03/16/2020 Sig: LOSARTAN 50 MG TABLET Take 1 tablet by mouth once d* * EFFEXOR 25 MG TABLET Take one(1) tablet twice willie* FLUTICASONE PROPIONATE 50 MCG* Use 2 Sprays in each nostril * Patient not taking: Reported on 03/16/2020 Problem List As Of Date 03/16/2020 Noted Resolved BPH with obstruction/lower urinary tract sympto*08/08/2006 Other specified disease of hair and hair follic*08/08/2006 0 10/04/2019 Dysmetabolic syndrome X [E88.81] 08/08/2006 10/04/2019 Acute gastritis without mention of hemorrhage [*10/28/2006 1 10/01/2015 Pruritus ani [L29.0] 12/27/2010 Cervical disc disorder with radiculopathy of ce*09/03/2011 Hypertension [I10] 09/26/2011 ED (erectile dysfunction) [N52.9] 03/30/2013 Trigger ring finger of right hand [M65.341] 07/12/201310/03 Hyperlipidemia with target LDL less than 130 [E*07/13/2013 Impaired fasting glucose [R73.01] 07/31/2016 10/04/2019 Changeable mood [R45.86] 09/01/2017 10/04/2019 More... Chronic anxiety [F41.9] 10/29/2018 Obesity, Class I, BMI 30-34.9 [E66.9] 10/04/2019 Carpal tunnel syndrome of left wrist [G56.02] Letter Text Encounter Status:Closed by BRADLY SAHU MD on 03/16/20 cnco on 2020-03-16 CNCO Letter Text Normal 03-16-2020 [facility] ([id number]) cnpn on 2020-02-09 CNPN Telephone (FAMPWS) Normal 02-09-2020 [place] [facility] JOELLE MARIEE ([id number]) 1945 M [facility] Time Provider Department ([id number]) 02/09/20 RAYSA COUGHLIN III During your visit today, we recorded the following informati on about you: Preston Sanz, RN, RN 02/09/2020 9:01 AM Signed Pt calls stating he had a nerve conduction test approx 1 month ago at [facility] and he is calling for results. No test results have been scanned into [employer]. Please advise pt of results on cell phone. Raphael Salamanca MD 02/09/2020 9:05 AM Signed No results in the system for this test. Please obtain from W . Ttaa Boyce CMA, MA 02/09/2020 9:08 AM Signed Report printed, taken to DOC. DIEGO Villagomez MD 02/09/2020 9:47 AM Signed EMG shows findings consistent with moderate left carpal tunn el syndrome. Ordered by a Dr. Jason Grant who appears to specialize in physical medicine and rehab. Is the patient following up with this specialist stil l for pain? Tata Boyce CMA, MA 02/09/2020 10:03 AM Signed Patient notified, voiced understanding. Patient would like to talk to someone about options DIEGO Villagomez Ma 02/09/2020 11:12 AM Signed Patient will need to schedule an appoint ment if he wants to discuss options as he has not been seen by Dr. Sahu since 2012. Tata Boyce CMA, MA 02/09/2020 11:17 AM Signed Please assist patient with s cheduling an appointment with Dr. Sahu for carpal tunnel. Thank you. DIEGO Villagomez Ma 02/10/2020 8:09 AM Signed Please assist patient with appointment to see Dr. Cooper rivera or Savannah Patel PA-C. Thank you. Pretty Clark RN 02/15/2020 10:44 AM Signed Pt. called and appointment scheduled. Allergies As of Date: 02/09/2020 Noted Allergy Reaction LISINOPRIL 11/14/2011 3 - Cough ZOCOR (SIMVASTATIN) 06/22/2009 Comments: myalgia Date Reviewed: 01/13/2020 Reviewed by: Lizzie Couch LPN - Fully Assessed Reason for Visit: Nerve Conduction [Other] Visit Diagnosis:Carpal tunnel syndrome of left wrist [G56.02 ] Prescriptions as of 02/09/2020 Sig: LOSARTAN 50 MG TABLET Take 1 tablet by mouth once d* FLUTICASONE PROPIONATE 50 MCG* Use 2 Sprays in each nostril * * EFFEXOR 25 MG TABLET Take one(1) tablet twice willie* Problem List As Of Date 02/09/2020 Noted Resolved BPH with obstruction/lower urinary tract sympto*08/08/2006 Other specified disease of hair and hair follic*08/08/2006 0 10/04/2019 Dysmetabolic syndrome X [E88.81] 08/08/2006 10/04/2019 Acute gastritis without mention of hemorrhage [*10/28/2006 1 10/01/2015 Pruritus ani [L29.0] 12/27/2010 Cervical disc disorder with radiculopathy of ce*09/03/2011 Hypertension [I10] 09/26/2011 ED (erectile dysfunction) [N52.9] 03/30/2013 Trigger ring finger of right hand [M65.341] 07/12/201310/03 Hyperlipidemia with target LDL less than 130 [E*07/13/2013 Impaired fasting glucose [R73.01] 07/31/2016 10/04/2019 Changeable mood [R45.86] 09/01/2017 10/04/2019 More... Chronic anxiety [F41.9] 10/29/2018 Obesity, Class I, BMI 30-34.9 [E66.9] 10/04/2019 Carpal tunnel syndrome of left wrist [G56.02] Encounter Status:Closed by PRETTY CLARK RN on 02/01 11/21 progress on 2020-01 PROGRESS HNO ID: [id number] Normal 01-13-2020 [facility] Author: Lizzie Couch LPN ([id number]) Service: ? Author Type: ? Type: Progress Notes Filed: 01/13/2020 10:05 AM Note Text: Patient here for 2nd Shingrix vaccine. cnnurse on CNNURSE Nurse Visit (FAMPWS) Normal 0 [facility] JOELLE MARIEE ([id number]) 1945 [facility] Date Time Provider Department ([id number]) 01/13/20 9:30 AM PR NURSE FAMPWS During your visit today, we recorded the following informati on about you: Lizzie Couch LPN 01/13/2020 10:05 AM Signed Patient here for 2nd Shingrix vaccine. Referring Provider: PRESTON PRINGLE [[id number]] Allergies As of Date: 01/13/2020 Noted Allergy Reaction LISINOPRIL 11/14/2011 3 - Cough ZOCOR (SIMVASTATIN) 06/22/2009 Comments: myalgia Date Reviewed: 01/13/2020 Reviewed by: Lizzie Couch LPN - Fully Assessed Reason for Visit: Imm/Inj [58] Cmt: Shingrix Primary Visit Diagnosis:Need for shingles vaccine [Z23] Prescriptions as of 01/13/2020 Sig: LOSARTAN 50 MG TABLET Take 1 tablet by mouth once d* * EFFEXOR 25 MG TABLET Take one(1) tablet twice willie* FLUTICASONE PROPIONATE 50 MCG* Use 2 Sprays in each nostril * Problem List As Of Date 01/13/2020 Noted Resolved BPH with obstruction/lower urinary tract sympto*08/08/2006 Other specified disease of hair and hair follic*08/08/2006 0 10/04/2019 Dysmetabolic syndrome X [E88.81] 08/08/2006 10/04/2019 Acute gastritis without mention of hemorrhage [*10/28/2006 1 10/01/2015 Pruritus ani [L29.0] 12/27/2010 Cervical disc disorder with radiculopathy of ce*09/03/2011 Hypertension [I10] 09/26/2011 ED (erectile dysfunction) [N52.9] 03/30/2013 Trigger ring finger of right hand [M65.341] 07/12/201310/03 Hyperlipidemia with target LDL less than 130 [E*07/13/2013 Impaired fasting glucose [R73.01] 07/31/2016 10/04/2019 Changeable mood [R45.86] 09/01/2017 10/04/2019 More... Chronic anxiety [F41.9] 10/29/2018 Obesity, Class I, BMI 30-34.9 [E66.9] 10/04/2019 Encounter Status:Closed by LIZZIE COUCH LPN on 01/13/20 progress on 2019-10 PROGRESS HNO ID: [id number] Normal 10-11-2019 [facility] Author: Arlet Sánchez LPN [place] ([id number]) Service: ? Author Type: ? Type: Progress Notes Filed: 10/11/2019 2:00 PM Note Text: Patient presents for Shingrix and TDaP immunizations. Denies any problems at this time. Tolerated injections well. Arlet Sánchez LPN cnnurse on [facility] Nurse Visit (FAMPWS) Normal 0 [place] [facility] JOELLE MARIEE ([id number]) 1945 [facility] Date Time Provider Department ([id number]) 10/11/19 1:45 PM PR NURSE [facility] During your visit today, we recorded the following informati on about you: Arlet Sánchez LPN 10/11/2019 2:00 PM Signed Patient presents for Shingrix and TDaP immunizations. Denies any problems at this time. Tolerated injections well. Arlet Sánchez LPN Referring Provider: RAYSA COUGHLIN III [[id number]] Allergies As of Date: 10/11/2019 Noted Allergy Reaction LISINOPRIL 11/14/2011 3 - Cough ZOCOR (SIMVASTATIN) 06/22/2009 Comments: myalgia Date Reviewed: 10/04/2019 Reviewed by: Dorinda Leigh LPN - Fully Assessed Reason for Visit: Imm/Inj [58] Primary Visit Diagnosis:Need for vaccination [Z23] Prescriptions as of 10/11/2019 Sig: HYDROCORTISONE 2.5 % TOPICAL * 1 application by RECTAL route * LOSARTAN 50 MG TABLET Take 1 tablet by mouth once d* FLUTICASONE PROPIONATE 50 MCG* Use 2 Sprays in each nostril * * EFFEXOR 25 MG TABLET Take one(1) tablet twice willie* Problem List As Of Date 10/11/2019 Noted Resolved BPH with obstruction/lower urinary tract sympto*08/08/2006 Other specified disease of hair and hair follic*08/08/2006 0 10/04/2019 Dysmetabolic syndrome X [E88.81] 08/08/2006 10/04/2019 Acute gastritis without mention of hemorrhage [*10/28/2006 1 10/01/2015 Pruritus ani [L29.0] 12/27/2010 Cervical disc disorder with radiculopathy of ce*09/03/2011 Hypertension [I10] 09/26/2011 ED (erectile dysfunction) [N52.9] 03/30/2013 Trigger ring finger of right hand [M65.341] 07/12/201310/03 Hyperlipidemia with target LDL less than 130 [E*07/13/2013 Impaired fasting glucose [R73.01] 07/31/2016 10/04/2019 Changeable mood [R45.86] 09/01/2017 10/04/2019 More... Chronic anxiety [F41.9] 10/29/2018 Obesity, Class I, BMI 30-34.9 [E66.9] 10/04/2019 Encounter Status:Closed by ARLET SÁNCHEZ LPN on 10/11/19 cnpn on 2019-10-08 CNPN Telephone (FAMPWS) Normal 10-08-2019 [facility] JOELLE MARIEE ([id number]) 1945 [facility] Date Time Provider Department ([id number]) 10/08/19 PRESTON PRINGLE FAMPWS During your visit today, we recorded the following informati on about you: Arlet Sánchez LPN 10/08/2019 10:35 AM Signed Patient scheduled for nurse visit 10/11/2019 to receive Shingr ix and TDaP vaccines. Please place order at this time. Arlet Pringle, MSN [employer].RN ALLERGY 10/08/2019 11:11 AM Signed Patient stops by office, PCP out of office. Just seen for routine visit and refill for Proctozone cream, usually gets 2.5% and thi s visit was prescribed 1%. Would like rx resent for original strength. The following approved medic ation requests have been transmitted electronically. Signed Prescriptions Disp Refills hydrocortisone (PROCTOZONE-HC) 2.5 % rectal cream 28 g 2 Si application by RECTAL route twice daily as needed for up to 7 days. USMAN: No Authorizing Provider: PRESTON PRINGLE Orders filed for upcoming Vaccinations. Telephone on 10/08/19 - ZOSTER VACC RECOMBINANT,IM - TDAP VACCINE AGE 7+ IM - hydrocortisone (PROCTOZONE-HC) 2.5 % rectal cream Preston Pringle, MSN [employer].RN ALLERGY Allergies As of Date: 10/08/2019 Noted Allergy Reaction LISINOPRIL 11/14/2011 3 - Cough ZOCOR (SIMVASTATIN) 06/22/2009 Comments: myalgia Date Reviewed: 10/04/2019 Reviewed by: Dorinda Leigh LPN - Fully Assessed Reason for Visit: Orders [681] Primary Visit Diagnosis:Need for vaccination [Z23] Other Visit Diagnosis:Pruritus ani [L29.0] Order(s):ZOSTER VACC RECOMBINANT,IM [[id number]] Order #: [id number] TDAP VACCINE AGE 7+ IM [[id number]] Order #: [id number] hydrocortisone (PROCTOZONE-HC) 2.5 % rectal cream1 applicati on by RECTAL route twice daily as needed for up to 7 days.Disp: 28 gRfl: 2 Prescriptions as of 10/08/2019 Sig: HYDROCORTISONE 2.5 % TOPICAL * 1 application by RECTAL route * LOSARTAN 50 MG TABLET Take 1 tablet by mouth once d* FLUTICASONE PROPIONATE 50 MCG* Use 2 Sprays in each nostril * * EFFEXOR 25 MG TABLET Take one(1) tablet twice willie* Problem List As Of Date 10/08/2019 Noted Resolved BPH with obstruction/lower urinary tract sympto*08/08/2006 Other specified disease of hair and hair follic*08/08/2006 0 10/04/2019 Dysmetabolic syndrome X [E88.81] 08/08/2006 10/04/2019 Acute gastritis without mention of hemorrhage [*10/28/2006 1 10/01/2015 Pruritus ani [L29.0] 12/27/2010 Cervical disc disorder with radiculopathy of ce*09/03/2011 Hypertension [I10] 09/26/2011 ED (erectile dysfunction) [N52.9] 03/30/2013 Trigger ring finger of right hand [M65.341] 07/12/201310/03 Hyperlipidemia with target LDL less than 130 [E*07/13/2013 Impaired fasting glucose [R73.01] 07/31/2016 10/04/2019 Changeable mood [R45.86] 09/01/2017 10/04/2019 More... Chronic anxiety [F41.9] 10/29/2018 Obesity, Class I, BMI 30-34.9 [E66.9] 10/04/2019 Prescriptions ordered this encounter Disp Refills Start End HYDROCORTISONE 2.5 % TOPICAL CREAM W* 28 g 2 10/08/201910/02 Route: RECTAL Si application by RECTAL route twice daily as needed for up to 7 days. Medications Discontinued During This Encounter hydrocortisone (PROCTO-USHA) 1 % crpe 28.4* 5 10/04/2019 10/08/19 Route: RECTAL Sig: by RECTAL route twice daily as needed. Disc: Changing Therapy/Dosage Form Encounter Status:Closed by PRESTON PRINGLE CNP on 10/08/19 progress on 2019-10 PROGRESS HNO ID: [id number] Normal 10-04-2019 [facility] Author: Dorinda Leigh LPN [place] ([id number]) Service: ? Author Type: ? Type: Progress Notes Filed: 10/04/2019 12:19 PM Note Text: Mini-Cog Patient asked to remember the following three words: Banana, [place] and Chair Visuospatial/Executive Functioning: Clock drawin/2 (Normal clock with all number in correct sequence and position, hands are correct = 2 points, inability or refusal to draw a clock = 0) Three word recall: 10/04 Total score: 5/5 (Total score = word recall score + clock dr aw score) Dorinda E Reese STUDIO OWNER PROGRESS HNO ID: [id number] Normal 10-04-2019 [facility] Author: Raysa Coughlin III [place] ([id number]) Service: ? Author Type: Physician Type: Progress Notes Filed: 10/04/2019 12:19 PM Note Text: SUBJECTIVE: Chief Complaint: Joelle Mariee is a 74 year old male who presents for comp rehensive problem evaluation. New concerns today include 1. hypertension-tolerates medication well 2. has been on effexor for yrs per Dr Myers for tx of anxi ety/ADD-doing well. Still goes to Dr Myers once/yr. Denies depression at present 3. episodic numbness L hand x many yrs, magdaleno with driving. ep isodic pain medial L upper arm. Episodic pain L shoulder (previous eval by Dr Byrd) but denies neck pain 4. episodic squiggly lines in vision w/o CARDOZA. No hx of migr juanito CARDOZA. s/p cataract surgeries. 5. hyperlipidemia--poor diet and no exercise Exercises regularly Minimal exercise associated with work or ADL's Prostate cancer screening up to date Yes PSA was 0.71 Colon cancer screening is up to date Yes Last colonoscopy was done 2017 Cholesterol screening up to date Yes Current Outpatient Medications on File Prior to Visit Medication Sig - fluticasone (FLONASE) 50 mcg/actuation nasal spray Use 2 S prays in each nostril once daily. Rinse mouth after use. - hydrocortisone (PROCTOZONE-HC) 2.5 % rectal cream 1 applic ation by RECTAL route twice daily as needed. - losartan (COZAAR) 50 mg tablet Take 1 tablet by mouth once daily. - EFFEXOR 25 MG TAB Take one(1) tablet twice daily. - albuterol (PROVENTIL) 5 mg/mL nebu Inhale 0.5 mL as instru cted one time only for 1 dose. 1 DOSE NOW - BACK OFFICE. PLACE 0.5 ML PER DROPPER AND 2.5 ML OF NORMAL SALINE INTO RESERVOIR. - albuterol HFA (VENTOLIN HFA) 90 mcg/actuation inhaler Inha le 2 Puffs as instructed every 4 hours as needed for Wheezing/Shortness of Breath. (Patient not taking: Reported on 10/29/2018 ) No current facility-administered medications on file prior t o visit. PAST MEDICAL HISTORY Diagnosis Date - BPH W URINARY OBS/LUTS 08/08/2006 - Cervical disc disorder with radiculopathy of cervical perico on 09/03/2011 - Changeable mood 09/01/[address] Myers - ED (erectile dysfunction) 03/30/2013 - Family history of malignant neoplasm lung ca - Hyperlipidemia LDL goal < 130 07/13/2013 - Hypertension 09/26/2011 PAST SURGICAL HISTORY Procedure Laterality Date - COLONOSCOP W/ OR W/O BRS SPEC 2001 Colonoscopy - COLONOSCOP W/ OR W/O BRSH SPEC 10/28/2006 Colonoscopy-repeat in - COLONOSCOP W/ OR W/O BRSH SPEC 02/25/2012 Colonoscopy - COLONOSCOP W/ OR W/O BRSH SPEC 07/08/2017 Colonoscopy - EGD W/O OR W/BRUSH/WASH 10/28/2006 EGD FAMILY HISTORY Problem Relation Age of Onset - Cancer Mother lung - Cancer Father COLON - None Sister - None Brother - Diabetes Brother Social History Tobacco Use - Smoking status: Former Smoker - Smokeless tobacco: Never Used - Tobacco comment: quit 1970s Substance Use Topics - Alcohol use: No Frequency: Never Drinks per session: Patient refused Binge frequency: Patient refused - Drug use: No Immunization History Administered Date(s) Administered DT(PEDIATRIC) 06/20/1989 Influenza Seasonal - High Dose - Age 65+ 07/14/2017 05/16/2018 Influenza Vaccine, Split-Non Spec 06/03/2006 06/08/2007 06/08/2008 06/02/2009 05/18/2012 Pneumococcal-13 Vac Conjugate 09/15/2014 Pneumovax 01/17/2012 Tdap (Age 7+) 08/08/2006 ACTIVE PROBLEM LIST Bph With Obstruction/Lower Urinary Tract Symptoms Other Specified Disease of Hair and Hair Follicles Dysmetabolic Syndrome X Pruritus Ani Cervical Disc Disorder With Radiculopathy of Cervical Region Hypertension Ed (Erectile Dysfunction) Trigger Ring Finger of Right Hand Hyperlipidemia With Target Ldl Less Than 130 Impaired Fasting Glucose Changeable Mood Anxiety and Depression REVIEW OF SYSTEMS General: Denies fever, chills, night sweats, or changes in w eight. Dermatologic: Denies any new skin conditions, rashes or herrera ging moles. Eyes: Denies recent visual changes. ENT: Respiratory: Denies any cough, dyspnea, or wheezing. Cardiovascular: Denies any chest pain with exertion or at re st, palpitations, syncope, or edema. Gastrointestinal: Denies any nausea, vomiting, abdominal evangelina n, heartburn, changes in bowel habit, Denies any rectal bleeding. Genitourinary: Denies Denies problems with urinary stream., Denies dysuria, frequency, urgency, incontinence, erectile dysfunct ion, hematuria and nocturia. Musculoskeletal: Denies any joint swelling, crepitus, joint pain, or loss of range of motion., Denies back pain. Neurologic: Denies any headaches, tremors, dizziness, vertig o, memory loss, confusion., Denies weakness, numbness or tingling. Psychiatric: Denies any sleeping problems, history of abuse, marital discord., Denies any anxiety or depression. Hematologic/Lymphatic/Immunologic: Denies anemia, bruising, bleeding abnormalities. Endocrine: Denies any heat or cold intolerance, polyuria or polydipsia. OBJECTIVE: PHYSICAL EXAMINATION: BP 151/82 (BP Site: Right Arm) Pulse 71 Temp 36.7 ?C (98 ?F) Resp 18 Ht 171 cm (5' 7.32) Wt 100.7 kg (222 lb) SpO2 98% BMI 34.44 kg/m? GENERAL APPEARANCE Well appearing, alert, in no acute distre ss, well-hydrated, well nourished. SKIN: Skin color, texture, turgor normal, no suspicious rash es or lesions HEAD: No significant findings. NECK: Supple, no lymphadenopathy, normal thyroid, no carotid bruits and no JVD BACK: Back symmetric, Normal curvature, No CVAT. LUNGS: normal pulmonary exam and clear to auscultation and p ercussion HEART: Normal PMI, Regular rate and rhythm, Normal heart dilma nds, S1 and S2 and No murmurs. BREASTS: ABDOMEN: Soft, Non-tender, No palpable masses and No hepatos plenomegaly. EXTREMTIES: extremities normal, no deformities, no skin disc oloration, no edema, normal pulses bilaterally. NEURO: Awake, alert and oriented x 3, Reflexes symmetrical, Normal gait, No involuntary motions., muscle tone normal, muscle strength normal GENITALIA: Exam deferred RECTAL: Exam deferred Lab Results for JOELLE MARIEE ( ) as of 10/04/2019 09:13 Ref. Range 09/30/2019 09:45 Sodium Latest Ref Range: 136 - 144 mmol/L 136 Potassium Latest Ref Range: 3.7 - 5.1 mmol/L 4.2 Chloride Latest Ref Range: 97 - 105 mmol/L 105 CO2 Latest Ref Range: 22 - 30 mmol/L 23 BUN Latest Ref Range: 9 - 24 mg/dL 19 Creatinine Latest Ref Range: 0.73 - 1.22 mg/dL 0.85 Glucose Latest Ref Range: 74 - 99 mg/dL 112 (H) Protein, Total Latest Ref Range: 6.3 - 8.0 g/dL 6.9 Calcium Latest Ref Range: 8.5 - 10.2 mg/dL 9.0 Albumin Latest Ref Range: 3.9 - 4.9 g/dL 3.9 Bilirubin, Total Latest Ref Range: 0.2 - 1.3 mg/dL 0.3 Alkaline Phosphatase Latest Ref Range: 38 - 113 U/L 53 ALT Latest Ref Range: 10 - 54 U/L 13 AST Latest Ref Range: 14 - 40 U/L 17 Anion Gap Latest Ref Range: 9 - 18 mmol/L 8 (L) eGFR- Unknown >60 eGFR-All Other Races Latest Units: . >60 Cholesterol, Total Latest Ref Range: <200 mg/dL 226 (H) Triglyceride Latest Ref Range: <150 mg/dL 108 Fasting Time Latest Units: hrs 12 HDL Cholesterol Latest Ref Range: >39 mg/dL 43 LDL Cholesterol Latest Ref Range: <100 mg/dL 161 (H) VLDL Cholesterol Latest Ref Range: <30 mg/dL 22 TC:HDL Ratio Latest Ref Range: <5.10 5.26 (H) LDL:HDL Ratio Latest Ref Range: <2.54 3.74 (H) Non HDL Cholesterol Latest Ref Range: <130 mg/dL 183 (H) Hematocrit Latest Ref Range: 39.0 - 51.0 % 43.4 PSA Latest Ref Range: 0.00 - 2.59 ng/mL 0.71 Hemoglobin A1C Latest Ref Range: 4.3 - 5.6 % 5.4 Estimated Average Glucose Latest Units: mg/dL 108 WBC Latest Ref Range: 3.70 - 11.00 k/uL 4.59 RBC Latest Ref Range: 4.20 - 6.00 m/uL 4.65 Hemoglobin Latest Ref Range: 13.0 - 17.0 g/dL 14.4 Platelet Count Latest Ref Range: 150 - 400 k/uL 277 MCV Latest Ref Range: 80.0 - 100.0 fL 93.3 MCH Latest Ref Range: 26.0 - 34.0 pG 31.0 MCHC Latest Ref Range: 30.5 - 36.0 g/dL 33.2 MPV Latest Ref Range: 9.0 - 12.7 fL 10.4 RDW-CV Latest Ref Range: 11.5 - 15.0 % 12.3 Absolute nRBC Latest Ref Range: <0.01 k/uL <0.01 ASSESSMENT: hypertension--at goal hyperlipidemia-out of control ch anxiety--well controlled obesity-stable ? L CTS hx of impaired fasting glucose--resolved PLAN: healthy weight losing diet and regular exercise eat less sugar, bread, potato, pasta, rice, corn, corn syrup , saturated fats EMG/NCV LUE same medications check with insurance regarding shingrix vaccination ALISIA Draper MD on 2019-10-04 CLAUDIA Office Visit (FAMPWS) Normal 10-04-[address] [place] [address] Clinic JOELLE MARIEE ([id number]) 1945 M [place] Date Time Provider Department ([id number]) 10/04/19 8:40 AM RAYSA COUGHLIN III During your visit today, we recorded the following informati on about you: Temperature Pulse Respiration Blood pressure 98 degrees 71/minute 18/minute 151/82 Weight Height 100.7 kg 1.71 m Raysa Coughlin III MD 10/04/2019 12:19 PM Signed SUBJECTIVE: Chief Complaint: Joelle Mariee is a 74 year old male who [facility] for comprehensive problem evaluation. New concerns today include 1. hypertension-tolerates medication well 2. has been on effexor for y rs per Dr Myers for tx of anxiety/ADD-doing well. Still goes to Dr Myers once/yr. Denies depression at present 3. episodic numbness L hand x many yrs, magdaleno with driving. ep isodic pain medial L upper arm. Episodic pain L shoulder (pr evious eval by Dr Byrd) but denies neck pain 4. episodic squiggly lines in vision w/o CARDOZA. No hx of migr juanito CARDOZA. s/p cataract surgeries. 5. hyperlipidemia--poor diet and no exercise Exercises regularly Minimal exercise associated with work or ADL's Prostate cancer screening up to date Yes PSA was 0.71 Colon cancer screening is up to date Yes Last colonoscopy was done 2016 Cholesterol screening up to date Yes Current Outpatient Medications on File Prior to Visit Medication Sig - fluticasone (FLONASE) 50 mcg/actuation nasal spray Use 2 S prays in each nostril once daily. Rinse mouth after use. - hydrocortisone (PROCTOZONE-HC) 2.5 % rectal cream 1 appl ication by RECTAL route twice daily as needed. - losartan (COZAAR) 50 mg tablet Take 1 tablet by mouth once daily. - EFFEXOR 25 MG TAB Take one(1) tablet twice daily. - albuterol (PROVENTIL) 5 mg/mL nebu Inh gurinder 0.5 mL as instructed one time only for 1 dose. 1 DOSE NOW - BACK OFFICE. PLACE 0.5 ML PER DROPPER AND 2.5 ML OF NORMAL SALINE INTO RESERVOIR. - albuterol HFA (VENTOLIN HFA) 90 mcg/actuation inhaler Inha le 2 Puffs as instructed every 4 hours as needed for Wheezing/ Shortness of Breath. (Patient not taking: Reported on 10/29/2018 ) No current facility-administered medications on file prior t o visit. PAST MEDICAL HISTORY Diagnosis Date - BPH W URINARY OBS/LUTS 08/08/2006 - Cervical disc disorder with radiculopathy of cervical perico on 09/03/2011 - Changeable mood 09/01/[address] Myers - ED (erectile dysfunction) 03/30/2013 - Family history of malignant neoplasm lung ca - Hyperlipidemia LDL goal < 130 07/13/2013 - Hypertension 09/26/2011 PAST SURGICAL HISTORY Procedure Laterality Date - COLONOSCOP W/ OR W/O BRSH SPEC 2001 Colonoscopy - COLONOSCOP W/ OR W/O BRSH SPEC 10/28/2006 Colonoscopy-repeat in - COLONOSCOP W/ OR W/O BRSH SPEC 02/25/2012 Colonoscopy - COLONOSCOP W/ OR W/O BRSH SPEC 07/08/2017 Colonoscopy - EGD W/O OR W/BRUSH/WASH 10/28/2006 EGD FAMILY HISTORY Problem Relation Age of Onset - Cancer Mother lung - Cancer Father COLON - None Sister - None Brother - Diabetes Brother Social History Tobacco Use - Smoking status: Former Smoker - Smokeless tobacco: Never Used - Tobacco comment: quit 1970s Substance Use Topics - Alcohol use: No Frequency: Never Drinks per session: Patient refused Binge frequency: Patient refused - Drug use: No Immunization History Administered Date(s) Administered DT(PEDIATRIC) 06/20/1989 Influenza Seasonal - High Dose - Age 65+ 07/14/2017 05/16/2018 Influenza Vaccine, Split-Non Spec 06/03/2006 06/08/2007 06/08/2008 06/02/2009 05/18/2012 Pneumococcal-13 Vac Conjugate 09/15/2014 Pneumovax 01/17/2012 Tdap (Age 7+) 08/08/2006 ACTIVE PROBLEM LIST Bph With Obstruction/Lower Urinary Tract Symptoms Other Specified Disease of Hair and Hair Follicles Dysmetabolic Syndrome X Pruritus Ani Cervical Disc Disorder With Radiculopathy of Cervical Region Hypertension Ed (Erectile Dysfunction) Trigger Ring Finger of Right Hand Hyperlipidemia With Target Ldl Less Than 130 Impaired Fasting Glucose Changeable Mood Anxiety and Depression REVIEW OF SYSTEMS General: Denies fever, chills, night sweats, or changes in w eight. Dermatologic: Denies any new skin conditions, rashes or herrera ging moles. Eyes: Denies recent visual changes. ENT: Respiratory: Denies any cough, dyspnea, or wheezing. Cardiovascular: Denies any chest pain with exert ion or at rest, palpitations, syncope, or edema. Gastrointestinal: Denies any nausea, vomiting, abdominal evangelina n, heartburn, changes in bowel habit, Denies any rectal bleeding. Genitourinary: Denies Denies problems with urinary stream. , Denies dysuria, frequency, urgency, incontin ence, erectile dysfunction, hematuria and nocturia. Musculoskeletal: Denies any joint swelling, crepitus, joint pain, or loss of range of motion., Denies back pain. Neurologic: Denies any headaches, tremors, dizziness, vert igo, memory loss, confusion., Denies weakness, numbness or tingling. Psychiatric: Denies any sleeping problem s, history of abuse, marital discord., Denies any anxiety or depression. Hematologic/Lymphatic/Immunologic: Denies anemia, bruising, bleeding abnormalities. Endocrine: Denies any heat or cold intolerance, polyuria or polydipsia. OBJECTIVE: PHYSICAL EXAMINATION: BP 151/82 (BP Site: Right Arm) Pulse 71 Temp 36.7 ?C (98 ?F) Resp 18 Ht 171 cm (5' 7.32) Wt 100.7 kg (222 lb) SpO2 98% B PR 34.44 kg/m? GENERAL APPEARANCE Well appearing, alert , in no acute distress, well-hydrated, well nourished. SKIN: Skin color, texture, turgor normal, no suspicious rash es or lesions HEAD: No significant findings. NECK: Supple, no lymphadenopathy, normal thyroid, no carotid bruits and no JVD BACK: Back symmetric, Normal curvature, No CVAT. LUNGS: normal pulmonary exam and clear to auscultation and p ercussion HEART: Normal PMI, Regular rate and rhyt hm, Normal heart sounds, S1 and S2 and No murmurs. BREASTS: ABDOMEN: Soft, Non-tender, No palpable masses and No hepatos plenomegaly. EXTREMTIES: extremities normal, no deformities, no skin disc oloration, no edema, normal pulses bilaterally. NEURO: Awake, alert and oriented x 3, Reflexes symmetrical , Normal gait, No involuntary motions., muscle tone normal, muscle strength no rmal GENITALIA: Exam deferred RECTAL: Exam deferred Lab Results for JOELLE MARIEE Alfredo ( ) as of 10/04/2019 09:13 Ref. Range 09/30/2019 09:45 Sodium Latest Ref Range: 136 - 144 mmol/L 136 Potassium Latest Ref Range: 3.7 - 5.1 mmol/L 4.2 Chloride Latest Ref Range: 97 - 105 mmol/L 105 CO2 Latest Ref Range: 22 - 30 mmol/L 23 BUN Latest Ref Range: 9 - 24 mg/dL 19 Creatinine Latest Ref Range: 0.73 - 1.22 mg/dL 0.85 Glucose Latest Ref Range: 74 - 99 mg/dL 112 (H) Protein, Total Latest Ref Range: 6.3 - 8.0 g/dL 6.9 Calcium Latest Ref Range: 8.5 - 10.2 mg/dL 9.0 Albumin Latest Ref Range: 3.9 - 4.9 g/dL 3.9 Bilirubin, Total Latest Ref Range: 0.2 - 1.3 mg/dL 0.3 Alkaline Phosphatase Latest Ref Range: 38 - 113 U/L 53 ALT Latest Ref Range: 10 - 54 U/L 13 AST Latest Ref Range: 14 - 40 U/L 17 Anion Gap Latest Ref Range: 9 - 18 mmol/L 8 (L) eGFR- Unknown >60 eGFR-All Other Races Latest Units: . >60 Cholesterol, Total Latest Ref Range: <200 mg/dL 226 (H) Triglyceride Latest Ref Range: <150 mg/dL 108 Fasting Time Latest Units: hrs 12 HDL Cholesterol Latest Ref Range: >39 mg/dL 43 LDL Cholesterol Latest Ref Range: <100 mg/dL 161 (H) VLDL Cholesterol Latest Ref Range: <30 mg/dL 22 TC:HDL Ratio Latest Ref Range: <5.10 5.26 (H) LDL:HDL Ratio Latest Ref Range: <2.54 3.74 (H) Non HDL Cholesterol Latest Ref Range: <130 mg/dL 183 (H) Hematocrit Latest Ref Range: 39.0 - 51.0 % 43.4 PSA Latest Ref Range: 0.00 - 2.59 ng/mL 0.71 Hemoglobin A1C Latest Ref Range: 4.3 - 5.6 % 5.4 Estimated Average Glucose Latest Units: mg/dL 108 WBC Latest Ref Range: 3.70 - 11.00 k/uL 4.59 RBC Latest Ref Range: 4.20 - 6.00 m/uL 4.65 Hemoglobin Latest Ref Range: 13.0 - 17.0 g/dL 14.4 Platelet Count Latest Ref Range: 150 - 400 k/uL 277 MCV Latest Ref Range: 80.0 - 100.0 fL 93.3 MCH Latest Ref Range: 26.0 - 34.0 pG 31.0 MCHC Latest Ref Range: 30.5 - 36.0 g/dL 33.2 MPV Latest Ref Range: 9.0 - 12.7 fL 10.4 RDW-CV Latest Ref Range: 11.5 - 15.0 % 12.3 Absolute nRBC Latest Ref Range: <0.01 k/uL <0.01 ASSESSMENT: hypertension--at goal hyperlipidemia-out of control ch anxiety--well controlled obesity-stable ? L CTS hx of impaired fasting glucose--resolved PLAN: healthy weight losing diet and regular exercise eat less sugar, bread, potato, pasta, rice, corn, corn syrup, saturated fats EMG/NCV LUE same medications check with insurance regarding shingrix vaccination ALISIA Draper MD, III MD 10/04/2019 9:29 AM Signed PLAN: healthy weight losing diet and regular exercise eat less sugar, bread, potato, pasta, rice, corn, corn syrup, saturated fats EMG/NCV LUE same medications check with insurance regarding shingrix vaccination ALISIA Draper MD, LPN 10/04/2019 12:19 PM Signed Mini-Cog Patient asked to remember the following three words: Banana, [place] and Chair Visuospatial/Executive Functioning: Clock drawin/2 (Normal clock with all number in correct sequence and position, hands are correct = 2 points, inability or refusal to draw a clock = 0) Three word recall: 10/04 Total score: 5/5 (Total score = word recall score + clock dr aw score) Dorinda Leigh LPN Referring Provider: SELF [200] Allergies As of Date: 10/04/2019 Noted Allergy Reaction LISINOPRIL 11/14/2011 3 - Cough ZOCOR (SIMVASTATIN) 06/22/2009 Comments: myalgia Date Reviewed: 10/04/2019 Reviewed by: Dorinda Leigh LPN - Fully Assessed Reason for Visit: Yearly Exam [187] Cmt: Physical Primary Visit Diagnosis:Encounter for [facility] adult health examination without abnormal findings [Z00.00] Other Visit Diagnoses:Pruritus ani [L29.0] Essential hypertension [I10] Obesity, Class I, BMI 30-34.9 [E66.9] Chronic anxiety [F41.9] Hyperlipidemia with target LDL less than 130 [E78.5] Left hand pain [M79.642] Order(s):hydrocortisone (PROCTO-USHA) 1 % crpeby RECTAL rou te twice daily as needed.Disp: 28.4 gRfl: 5 losartan (COZAAR) 50 mg tabletTake 1 tablet by mouth once daily.Disp: 90 tabletRfl: 3 Prescriptions as of 10/04/2019 Sig: LOSARTAN 50 MG TABLET Take 1 tablet by mouth once d* FLUTICASONE PROPIONATE 50 MCG* Use 2 Sprays in each nostril * * EFFEXOR 25 MG TABLET Take one(1) tablet twice willie* HYDROCORTISONE 1 % TOPICAL CR* by RECTAL route twice daily a * Problem List As Of Date 10/04/2019 Noted Resolved BPH with obstruction/lower urinary tract sympto*08/08/2006 Other specified disease of hair and hair follic*08/08/2006 0 10/04/2019 Dysmetabolic syndrome X [E88.81] 08/08/2006 10/04/2019 Acute gastritis without mention of hemorrhage [*10/28/2006 1 10/01/2015 Pruritus ani [L29.0] 12/27/2010 Cervical disc disorder with radiculopathy of ce*09/03/2011 Hypertension [I10] 09/26/2011 ED (erectile dysfunction) [N52.9] 03/30/2013 Trigger ring finger of right hand [M65.341] 07/12/201310/03 Hyperlipidemia with target LDL less than 130 [E*07/13/2013 Impaired fasting glucose [R73.01] 07/31/2016 10/04/2019 Changeable mood [R45.86] 09/01/2017 10/04/2019 More... Chronic anxiety [F41.9] 10/29/2018 Obesity, Class I, BMI 30-34.9 [E66.9] 10/04/2019 Other instructions from your clinician: PLAN: healthy weight losing diet and regular exercise eat less sugar, bread, potato, pasta, rice, corn, corn syrup , saturated fats EMG/NCV LUE same medications check with insurance regarding shingrix vaccination Raysa Coughlin III Prescriptions ordered this encounter Disp Refills Start End HYDROCORTISONE 1 % TOPICAL CREAM WIT* 28.4* 5 10/04/2019 Route: RECTAL Sig: by RECTAL route twice daily as needed. LOSARTAN 50 MG TABLET 90 t* 3 10/04/2019 Route: ORAL Sig: Take 1 tablet by mouth once daily. Medications Discontinued During This Encounter hydrocortisone (PROCTOZONE-HC) 2.5 %* 1 Tu* 2 10/29/20182019 Route: RECTAL Si application by RECTAL route twice daily as needed. Disc: Reason for discontinue is not on file. losartan (COZAAR) 50 mg tablet 90 t* 3 10/29/2018 10/04/2019 Route: ORAL Sig: Take 1 tablet by mouth once daily. Disc: Reason for discontinue is not on file. albuterol (PROVENTIL) 5 mg/mL nebu 1 mL 0 09/24/2017 10/04/2019 Class: In Office Route: INHALATION Sig: Inhale 0.5 mL as instru cted one time only for 1 dose. 1 DOSE NOW - BACK OFFICE. PLACE 0.5 ML PER DROPPER AND 2.5 ML OF NORMAL SALINE INTO RESERVOIR. Disc: Course of therapy completed albuterol HFA (VENTOLIN HFA) 90 mcg/* 1 In* 0 09/24/20172019 Route: INHALATION Sig: Inhale 2 Puffs as instr ucted every 4 hours as needed for Wheezing/Shortness of Breath. Patient not taking: Reported on 10/29/2018 Disc: Course of therapy completed Encounter Status:Closed by RAYSA COUGHLIN III, MD on 10/04/19 psa, diagnostic on 2019-09-30 PSA, Diagnostic 0.71 0.00-2.59 ng/mL Normal 09-30-2019 [facility] ([id number]) Comment: Result Comment: Total PSA te st methodology used is the Electrochemiluminescence Imm unoassay. Performed By: #### HBA1C, PS A, LIPB ####[facility] [id number] [place] [address] [phone] lipid panel, basic on 2019-09-30 Cholesterol [Mass/Vol] 226 <200 mg/dL High 020 [facility] ([id number]) Comment: Result Comment: <200 mg/dL, Desirable 200-239 mg/dL, Borderline hi gh >239 mg/dL, High Performed By: #### HBA1C, PS A, LIPB ####[place] [id number] [place] [address] [phone] Cholesterol in HDL 43 >39 mg/dL Normal 09-30-2019 [facility] [Mass/Vol] ([id number]) Comment: Result Comment: 40-59 mg/dL, Acceptable >59 mg/dL, High: Negative ri sk factor for coronary heart disease <40 mg/dL, Low: Positive ris k factor for coronary heart disease Performed By: #### HBA1C, PS A, LIPB ####[place] [address] Cholesterol in LDL 161 <100 mg/dL High 09-30-2019 [facility] [Mass/Vol] ([id number]) Comment: Result Comment: <100 mg/dL, Optimal 100-129 mg/dL, Near optimal/ above optimal 130-159 mg/dL, Borderline hi gh 160-189 mg/dL, High >189 mg/dL, Very high Secondary prevention optimal LDL Cholesterol levels are recommended to be < 70 mg/dL Performed By: #### HBA1C, PS A, LIPB ####[place] [address] [phone] Fasting Time 12 hrs Normal 09-30-2019 [facility] ([id number]) Comment: Performed By: #### HBA1C, PS A, LIPB ####[place] [address] [phone] LDL:HDL Ratio 3.74 <2.54 High 09-30-2019 [facility] ([id number]) Comment: Result Comment: Reference: 1. National Cholesterol Educ ation Program ATP III Guideline At-A-Glance Quick Desk Reference: National Heart, Lung, and Blood [place]. National Institutes of Health. 2001: NIH Publication No. 01-3305. 2. An International Atherosc lerosis Society position paper: global recommendations for the management of dyslipidemia: executive summary, Atherosclerosis. 2014: 232(2):410-413. Performed By: #### HBA1C, PS A, LIPB ####[place] [address] [phone] Non HDL Cholesterol 183 <130 mg/dL High 09-30-2019 [facility] (13057) Comment: Result Comment: <130 mg/dL, Optimal 130-159 mg/dL, Near optimal/ above optimal 160-189 mg/dL, Borderline hi gh 190-219 mg/dL, High >219 mg/dL, Very high Secondary prevention optimal non HDL Cholesterol levels are recommended to be < 100 mg/dL Performed By: #### HBA1C, PS A, LIPB ####[place] [address] [phone] TC:HDL Ratio 5.26 <5.10 High 09-30-2019 [facility] (78277) Comment: Performed By: #### HBA1C, PS A, LIPB ####[place] [address] [phone] Triglyceride [Mass/Vol] 108 <150 mg/dL Normal 2019 [facility] (95725) Comment: Result Comment: <150 mg/dL, Normal 150-199 mg/dL, Borderline hi gh 200-499 mg/dL, High >499 mg/dL, Very high Performed By: #### HBA1C, PS A, LIPB ####[place] [address] [phone] VLDL Cholesterol 22 <30 mg/dL Normal 09-30-2019 [facility] ([id number]) Comment: Performed By: #### HBA1C, PS A, LIPB ####[place] [address] [phone] hemoglobin a1c on HbA1c (Bld) [Mass fraction] 5.4 4.3-5.6 % Normal [facility] (43500) Comment: Result Comment: [place] Nisreen betes Association guidelines indicate that patients with HgbA1c in the range 5.7-6.4% are at increased risk for development of diabetes, and intervention by lifestyle modification may be beneficial. HgbA1c greater o r equal to 6.5% is considered diagnostic of diabetes. Performed By: #### HBA1C, PS A, LIPB ####[facility] [id number] [place] [address] [phone] HbA1c (Bld) [Mass fraction] 108 mg/dL Normal [facility] (03883) Comment: Result Comment: eAG: (Estima romario average glucose) is a calculated value from HgbA1c and is sales and merchandising representative of the average blood glucose level in the last 2-3 month period. Performed By: #### HBA1C, PS A, LIPB ####[facility] [id number] [place] [address] [phone] comp metabolic panel on 2019-09-30 Albumin [Mass/Vol] 3.9 3.9-4.9 g/dL Normal 09-30-2019 [facility] (46945) ALP [Catalytic 53 38-113 U/L Normal 09-30-2019 [facility] activity/Vol] [place] [facility] (78747) ALT [Catalytic 13 10-54 U/L Normal 09-30-2019 [facility] activity/Vol] [place] [facility] (77641) Anion gap 8 9-18 mmol/L Low 09-30-2019 [facility] [Moles/Vol] [place] (82369) AST [Catalytic 17 14-40 U/L Normal 09-30-2019 [facility] activity/Vol] [place] [facility] (93836) Bilirubin [Mass/Vol] 0.3 0.2-1.3 mg/dL Normal 0 [facility] (25285) Calcium [Mass/Vol] 9.0 8.5-10.2 mg/dL Normal 09-30-2019 [facility] (83666) Chloride [Moles/Vol] 105 97-105 mmol/L Normal 0 [facility] (56491) CO2 [Moles/Vol] 23 22-30 mmol/L Normal 09-30-2019 [facility] (88697) Creatinine 0.85 0.73-1.22 mg/dL Normal 09-30-2019 [facility] [Mass/Vol] [place] ([address]) eGFR- Amer. >60 Normal 09-30-2019 [facility] (37804) GFR/1.73 sq M >60 mL/min/{1.73_m Normal 09-30-2019 [facility] predicted among 2} Roscoe figueroa (71430) non-blacks MDRD (S/P/Bld) [Vol rate/Area] Comment: Result Comment: eGFR (Estima romario GFR) Units of measure: mL/min/1.73 meters squared eGFR is derived from the ree xpressed MDRD Study equation using the following parameters: serum creatinine, age, gender and race. The creatinine assay has been calibrated to be traceable to IDMS. An eGFR <60 mL/min/1.73m2 fo r >3 months is consistent with chronic kidney disease. Refer to KDOQI guidelines for clinical interpretation. In patients with unstable re nal function, e.g. those with acute kidney injury, the eGFR may not accurately reflect actual GFR. Glucose [Mass/Vol] 112 74-99 mg/dL High 09-30-2019 [facility] (56942) Comment: Result Comment: The [place] Diabetes Association (ADA) provides guidance for cutoff values for fasting glucose and random glucose. The ADA defines fasting as no caloric intake for at least 8 hours. Fas ting plasma glucose results between 100 to 125 mg/dL indicate increased risk for diabetes (prediabetes). Fasting plasma glucose resul ts greater than or equal to 126 mg/dL meet the criteria for diagnosis of diabetes. In the absence of unequivocal hyperglycemia, results should be confirmed by repeat testing. In a patient with classic s ymptoms of hyperglycemia or hyperglycemic crisis, random plasma glucose results greater than or equal to 200 mg/dL meet the criteria for diagnosis of diabetes. Reference: Standards of [facility] Care in Diabetes 2016, Spanish Diabetes Association. Diabetes Care. 2016.39(Suppl 1). Potassium [Moles/Vol] 4.2 3.7-5.1 mmol/L Normal 09-30-19 20 [facility] (33623) Protein [Mass/Vol] 6.9 6.3-8.0 g/dL Normal 09-30-2019 [facility] (80443) Sodium [Moles/Vol] 136 136-144 mmol/L Normal 09-30-2019 [facility] (87832) Urea nitrogen [Mass/Vol] 19 9-24 mg/dL Normal 09-30 [facility] (83371) cnov on 2019-09-30 CNOV Office Visit (LABMOB) Normal 09-30-19 [place] [facility] JOELLE MARIEE Alfredo ([id number]) 1945 M [place] Date Time Provider Department ([id number]) 09/30/19 9:45 AM LAB [facility] MOB LABMOB During your visit today, we recorded the following informati on about you: Raysa Coughlin III MD 10/02/2019 3:37 PM Signed Ray, There is still a problem with the bad LDL cholesterol. We wi ll discuss at upcoming appointment. 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 #:[id number] PSA/PROSTSPECAG DIAG [SQPSA] Order #: [id number]. #:[id number]_[id number] HGB A1C [MLLFT2N] Order #: [id number]. #:[id number] COMP METABOLIC PANEL [SQCMP] Order #: [id number]. #:[id number]_[id number] CBC [SQCBC] Order #: [id number]. #:[id number] Prescriptions as of 09/30/2019 Sig: FLUTICASONE PROPIONATE 50 MCG* Use 2 Sprays in each nostril * X HYDROCORTISONE 2.5 % TOPICAL * 1 application by RECTAL rou te* X LOSARTAN 50 MG TABLET Take 1 tablet by mouth once d* X ALBUTEROL SULFATE CONCENTRATE* Inhale 0.5 mL as instructed o* X ALBUTEROL SULFATE HFA 90 MCG/* Inhale 2 Puffs as instructe d * Patient not taking: Reported on 10/29/2018 * EFFEXOR 25 MG TABLET Take one(1) tablet twice willie* Problem List As Of Date 09/30/2019 Noted Resolved BPH with obstruction/lower urinary tract sympto*08/08/2006 HAIR DISEASES NEC [L73.8] 08/08/2006 DYSMETABOLIC SYNDROME X [E88.81] 08/08/2006 Acute gastritis without mention of hemorrhage [*10/28/2006 1 10/01/2015 Pruritus ani [L29.0] 12/27/2010 Cervical disc disorder with radiculopathy of ce*09/03/2011 Hypertension [I10] 09/26/2011 ED (erectile dysfunction) [N52.9] 03/30/2013 Trigger ring finger of right hand [M65.341] 07/12/2013 Hyperlipidemia with target LDL less than 130 [E*07/13/2013 Impaired fasting glucose [R73.01] 07/31/2016 Changeable mood (HCC) [R45.86] 09/01/2017 More... Anxiety and depression [F41.9, F32.9] 10/29/2018 Encounter Status:Closed by RAYSA COUGHLIN III, MD on 10/04/19 cbc on 2019-09-30 Absolute nRBC <0.01 <0.01 Normal 09-30-2019 [facility] ([id number]) Erythrocyte distribution 12.3 11.5-15.0 % Normal 09-30 [facility] width (RBC) [Ratio] [place] (25715) Hematocrit (Bld) [Volume 43.4 39.0-51.0 % Normal 09-30 [place] [facility] fraction] [place] (04124) Hemoglobin (Bld) 14.4 13.0-17.0 g/dL Normal 09-30-2019 [facility] [Mass/Vol] [place] (10488) MCH (RBC) [Entitic mass] 31.0 26.0-34.0 pG Normal 09-30 [facility] (43554) MCHC (RBC) [Mass/Vol] 33.2 30.5-36.0 g/dL Normal 09-30-19 20 [facility] (72193) MCV (RBC) [Entitic vol] 93.3 80.0-100.0 fL Normal 09-30 [facility] (21889) Platelet mean volume 10.4 9.0-12.7 fL Normal 0 [facility] (Bld) [Entitic vol] [place] (96982) Platelets (Bld) [#/Vol] 277 150-400 k/uL Normal 2019 [facility] (95973) RBC (Bld) [#/Vol] 4.65 4.20-6.00 m/uL Normal 09-30-2019 [facility] (65922) WBC (Bld) [#/Vol] 4.59 3.70-11.00 k/uL Normal 09-30-2019 [facility] (74158) progress on 2019-06 PROGRESS HNO ID: [id number] Normal 07-02-2019 [facility] Author: Jackelyn Gomez ([id number]) Service: ? Author Type: Digital Composer Type: Progress Notes Filed: 07/02/2019 10:29 AM Note Text: [facility] COMPAR[facility] QUICKNOTE Provider Action/FYI: Last blood pressure was 136/86 on 07/02/19 No BP recheck needed Patient identified by name and . Jackelyn Gomez MA cnptoutreach on 201 04-14-29 CNPTOUTREACH Patient Outreach (FAMPWS) Normal 1 09-01-2018 [place] [facility] JOELLE MARIEE Alfredo ([id number]) 1945 M [place] Date Time Provider Department ([id number]) 07/02/19 JACKELYN GOMEZ (IGNACIO) FAMPWS During your visit today, we recorded the following informati on about you: Jackelyn Gomez MA 07/02/2019 10:29 AM Signed [facility] COMPARISON SHOPPER QUICKNOTE Provider Action/FYI: Last blood pressure was 136/86 on 07/02/19 No BP recheck needed Patient identified by name and . Jackelyn Gomez MA Allergies As of Date: 07/02/2019 Noted Allergy Reaction LISINOPRIL 11/14/2011 3 - Cough ZOCOR (SIMVASTATIN) 06/22/2009 Comments: myalgia Date Reviewed: 06/27/2019 Reviewed by: Jackelyn (Peter) Dangelo - Fully Assessed Reason for Visit: PHMA/Care Gap Outreach [3605] Cmt: ACO HTN Prescriptions as of 07/02/2019 Sig: AMOXICILLIN 875 MG-POTASSIUM * Take 1 tablet by mouth twice * FLUTICASONE PROPIONATE 50 MCG* Use 2 Sprays in each nostril * HYDROCORTISONE 2.5 % TOPICAL * 1 application by RECTAL route * LOSARTAN 50 MG TABLET Take 1 tablet by mouth once d* ALBUTEROL SULFATE CONCENTRATE* Inhale 0.5 mL as instructed o * ALBUTEROL SULFATE HFA 90 MCG/* Inhale 2 Puffs as instructed * Patient not taking: Reported on 10/29/2018 * EFFEXOR 25 MG TABLET Take one(1) tablet twice willie* Problem List As Of Date 07/02/2019 Noted Resolved BPH with obstruction/lower urinary tract sympto*08/08/2006 HAIR DISEASES NEC [L73.8] 08/08/2006 DYSMETABOLIC SYNDROME X [E88.81] 08/08/2006 Acute gastritis without mention of hemorrhage [*10/28/2006 1 10/01/2015 Pruritus ani [L29.0] 12/27/2010 Cervical disc disorder with radiculopathy of ce*09/03/2011 Hypertension [I10] 09/26/2011 ED (erectile dysfunction) [N52.9] 03/30/2013 Trigger ring finger of right hand [M65.341] 07/12/2013 Hyperlipidemia with target LDL less than 130 [E*07/13/2013 Impaired fasting glucose [R73.01] 07/31/2016 Changeable mood (HCC) [R45.86] 09/01/2017 More... Anxiety and depression [F41.9, F32.9] 10/29/2018 Encounter Status:Closed by JACKELYN GOMEZ on 07/02/19 progress on 2019-06 PROGRESS HNO ID: [id number] Normal 06-27-2019 [facility] Author: Jackelyn (Peter[facility] ([id number][facility] Service: ? Author Type: Nurse Practitioner Type: Progress Notes Filed: 06/27/2019 10:23 AM Note Text: Subjective HPI Joelle Mariee is a 73 year old male who presents with loss of voice, cough, sinus congestion and pressure for the past 7 d ays. He has taken sudafed and mucinex at home. He has had yellow/green n bety drainage this morning. He has to breathe through his mouth at night d ue to nasal congestion. Review of Systems Constitutional: Negative. Negative for fever. HENT: Positive for congestion, ear pain (pressure), sinus pain and sore throat. Respiratory: Positive for cough, sputum production and short ness of breath. Cardiovascular: Negative. Neurological: Negative. Negative for dizziness. BP 136/86 Pulse 86 Temp 36.7 ?C (98 ?F) (Left Tympanic) Resp 16 Wt 104.7 kg (230 lb 12.8 oz) SpO2 97% BMI 35.09 kg/m? PAST MEDICAL HISTORY Diagnosis Date - BPH W URINARY OBS/LUTS 08/08/2006 - Cervical disc disorder with radiculopathy of cervical perico on 09/03/2011 - Changeable mood 09/01/[address] Myers - ED (erectile dysfunction) 03/30/2013 - Family history of malignant neoplasm lung ca - Hyperlipidemia LDL goal < 130 07/13/2013 - Hypertension 09/26/2011 PAST SURGICAL HISTORY Procedure Laterality Date - COLONOSCOP W/ OR W/O BRSH SPEC 2001 Colonoscopy - COLONOSCOP W/ OR W/O BRSH SPEC 10/28/2006 Colonoscopy-repeat in - COLONOSCOP W/ OR W/O BRSH SPEC 02/25/2012 Colonoscopy - COLONOSCOP W/ OR W/O BRSH SPEC 07/08/2017 Colonoscopy - EGD W/O OR W/BRUSH/WASH 10/28/2006 EGD ALLERGIES Lisinopril; Zocor [Simvastatin] MEDICATIONS hydrocortisone (PROCTOZONE-HC) 2.5 % rectal cream 1 applicat ion by RECTAL route twice daily as needed. losartan (COZAAR) 50 mg tablet Take 1 tablet by mouth once d aily. EFFEXOR 25 MG TAB Take one(1) tablet twice daily. albuterol (PROVENTIL) 5 mg/mL nebu Inhale 0.5 mL as instruct ed one time only for 1 dose. 1 DOSE NOW - BACK OFFICE. PLACE 0.5 ML PER DROPPER AND 2.5 ML OF NORMAL SALINE INTO RESERVOIR. albuterol HFA (VENTOLIN HFA) 90 mcg/actuation inhaler Inhale 2 Puffs as instructed every 4 hours as needed for Wheezing/Shortness of Breath. FAMILY HISTORY Problem Relation Age of Onset - Cancer Mother lung - Cancer Father COLON - None Sister - None Brother - Diabetes Brother Social History Tobacco Use - Smoking status: Former Smoker - Smokeless tobacco: Never Used - Tobacco comment: quit 1970s Substance Use Topics - Alcohol use: No - Drug use: No Objective Physical Exam Constitutional: He is well-developed, well-nourished, and in no distress. HENT: Right Ear: Tympanic membrane, external ear and ear canal nor mal. Left Ear: External ear and ear canal normal. Tympanic membra ne is injected and erythematous. Nose: Rhinorrhea and sinus tenderness present. Mouth/Throat: Uvula is midline, oropharynx is clear and mois t and mucous membranes are normal. No oropharyngeal exudate, posterior or opharyngeal edema or posterior oropharyngeal erythema. Neck: Neck supple. Cardiovascular: Normal rate, regular rhythm and normal heart sounds. Pulmonary/Chest: Effort normal and breath sounds normal. No respiratory distress. He has no wheezes. He has no rales. Lymphadenopathy: He has no cervical adenopathy. Neurological: He is alert. Skin: Skin is warm and dry. No rash noted. No erythema. Nursing note and vitals reviewed. ASSESSMENT/PLAN: 1. Other acute nonsuppurative otitis media of left ear, recu rrence not specified - ICD9: 381.00, ICD10: H65.192 (primary diagnosis) - Will begin treatment with Augmentin 875 mg PO BID for 10 d ays - Supportive care with plenty of fluids, rest, and analgesia prn. - AMOXICILLIN 875 MG-POTASSIUM CLAVULANATE 125 MG TABLET 2. Viral sinusitis - ICD9: 473.9, 079.99, ICD10: J32.9, B97. 89 - Discussed viral etiology and rationale for treatment. - Symptomatic treatment with prn analgesia - Supportive care with fluids and rest - FLUTICASONE PROPIONATE 50 MCG/ACTUATION NASAL SPRAY,SUSPEN EUFEMIA - may continue mucinex and sudafed - Follow-up with your PCP in 3-5 days if symptoms have not i mproved or sooner if symptoms worsen - Discussed red flags and need for immediate medical evaluat ion if any occur. - Discussed supportive care treatment with fluids, rest and analgesia. - Discussed expected course of illness KERI Rob on 2019-06-27 CNOV Office Visit (UCWSTR) Normal 06-27-[address] [place] [address] Clinic KODIJOELLE ([id number]) 1945 [facility] Date Time Provider Department ([id number]) 06/27/19 9:45 AM JACKELYN MYLES (RN ALLERGY) WSTR During your visit today, we recorded the following informati on about you: Temperature Pulse Respiration Blood pressure 98 degrees 86/minute 16/minute 136/86 Weight 104.7 kg Jackelyn Myles APRN.CNP 06/27/2019 10:23 AM Signed Subjective HPI Joelle Fuentes Kodi is a 73 year old male who presents wi th loss of voice, cough, sinus congestion and pressure for the past 7 days. He has taken sudafed and mucinex at home. He has had yellow/green nasal maribel inage this morning. He has to breathe through his mouth at night due to nasal conge stion. Review of Systems Constitutional: Negative. Negative for fever. HENT: Positive for congestion, ear pain (pressure), sinus pain and sore throat. Respiratory: Positive for cough, sputum production and gideon rtness of breath. Cardiovascular: Negative. Neurological: Negative. Negative for dizziness. BP 136/86 Pulse 86 Temp 36.7 ?C (98 ?F) (Left Tympanic) Resp 16 Wt 104.7 kg (230 lb 12.8 oz) SpO2 97% BMI 35.09 kg/m? PAST MEDICAL HISTORY Diagnosis Date - BPH W URINARY OBS/LUTS 08/08/2006 - Cervical disc disorder with radiculopathy of cervical perico on 09/03/2011 - Changeable mood 09/01/[address] Myers - ED (erectile dysfunction) 03/30/2013 - Family history of malignant neoplasm lung ca - Hyperlipidemia LDL goal < 130 07/13/2013 - Hypertension 09/26/2011 PAST SURGICAL HISTORY Procedure Laterality Date - COLONOSCOP W/ OR W/O BRSH SPEC 2001 Colonoscopy - COLONOSCOP W/ OR W/O BRSH SPEC 10/28/2006 Colonoscopy-repeat in - COLONOSCOP W/ OR W/O BRSH SPEC 02/25/2012 Colonoscopy - COLONOSCOP W/ OR W/O BRSH SPEC 07/08/2017 Colonoscopy - EGD W/O OR W/BRUSH/WASH 10/28/2006 EGD ALLERGIES Lisinopril; Zocor [Simvastatin] MEDICATIONS hydrocortisone (PROCTOZONE-H C) 2.5 % rectal cream 1 application by RECTAL route twice daily as needed. losartan (COZAAR) 50 mg tablet Take 1 tablet by mouth once d aily. EFFEXOR 25 MG TAB Take one(1) tablet twice daily. albuterol (PROVENTIL) 5 mg/mL nebu Inhale 0.5 mL as in structed one time only for 1 dose. 1 DOSE NOW - BACK OFFICE. PLACE 0.5 ML PER DROPPER AND 2.5 ML OF NORMAL SALINE INTO RESERVOIR. albuterol HFA (VENTOLIN HFA) 90 mcg/actuation inhaler Inhale 2 Puffs as instructed every 4 hours as needed for Wheezing/Shortness of Breath. FAMILY HISTORY Problem Relation Age of Onset - Cancer Mother lung - Cancer Father COLON - None Sister - None Brother - Diabetes Brother Social History Tobacco Use - Smoking status: Former Smoker - Smokeless tobacco: Never Used - Tobacco comment: quit 1970s Substance Use Topics - Alcohol use: No - Drug use: No Objective Physical Exam Constitutional: He is well-developed, well-nourished, and in no distress. HENT: Right Ear: Tympanic membrane, external ear and ear canal nor mal. Left Ear: External ear and ear canal nor mal. Tympanic membrane is injected and erythematous. Nose: Rhinorrhea and sinus tenderness present. Mouth/Throat: Uvula is midline, oropharynx is clear and mois t and mucous membranes are normal. No oropharyngeal exudate, posterior oropharyngeal edema or posterior oropharyngeal erythema. Neck: Neck supple. Cardiovascular: Normal rate, regular rhythm and normal heart sounds. Pulmonary/Chest: Effort normal and breath sounds normal. No respiratory distress. He has no wheezes. He has no rales. Lymphadenopathy: He has no cervical adenopathy. Neurological: He is alert. Skin: Skin is warm and dry. No rash noted. No erythema. Nursing note and vitals reviewed. ASSESSMENT/PLAN: 1. Other acute nonsuppurative otitis media of left ear, recu rrence not specified - ICD9: 381.00, ICD10: H65.192 (primary diagnosis) - Will begin treatment with Augmentin 875 mg PO BID for 10 d ays - Supportive care with plenty of fluids, rest, and analgesia prn. - AMOXICILLIN 875 MG-POTASSIUM CLAVULANATE 125 MG TABLET 2. Viral sinusitis - ICD9: 473.9, 079.99, ICD10: J32.9, B97. 89 - Discussed viral etiology and rationale for treatment. - Symptomatic treatment with prn analgesia - Supportive care with fluids and rest - FLUTICASONE PROPIONATE 50 MCG/ACTUATION NASAL SPRAY,SUSPEN EUFEMIA - may continue mucinex and sudafed - Follow-up with your PCP in 3-5 days if symptom s have not improved or sooner if symptoms worsen - Discussed red flags and need for immediate med ical evaluation if any occur. - Discussed supportive care treatment with fluids, rest and analgesia. - Discussed expected course of illness KERI Rob APRN.CNP 06/27/2019 10:07 AM Signed ASSESSMENT/PLAN: 1. Other acute nonsuppurative otitis media of left ear, recu rrence not specified - ICD9: 381.00, ICD10: H65.192 (primary diagnosis) - Will begin treatment with Augmentin 875 mg PO BID for 10 d ays - Supportive care with plenty of fluids, rest, and analgesia prn. - AMOXICILLIN 875 MG-POTASSIUM CLAVULANATE 125 MG TABLET 2. Viral sinusitis - ICD9: 473.9, 079.99, ICD10: J32.9, B97. 89 - Discussed viral etiology and rationale for treatment. - Symptomatic treatment with prn analgesia - Supportive care with fluids and rest - FLUTICASONE PROPIONATE 50 MCG/ACTUATION NASAL SPRAY,SUSPEN EUFEMIA - may continue mucinex and sudafed - Follow-up with your PCP in 3-5 days if symptom s have not improved or sooner if symptoms worsen - Discussed red flags and need for immediate med ical evaluation if any occur. - Discussed supportive care treatment with fluids, rest and analgesia. - Discussed expected course of illness Jackelyn Myles APRN.RN [facility] PATIENT INFO ACUTE SINUSITIS OVERVIEW Rhinosinusitis, or more commonly sinusitis, is the medical t erm for inflammation (swelling) of the lining of the sinuses and nose. The sinuses are the hollow areas within the facial bones that are connected to the nasal openings. The sinuses are lined with mucous membranes, similar to the inside of the nose. There are two main types of sinusitis: acute and chron ic. Acute sinusitis is inflammation that lasts for less than fo ur weeks while chronic sinusitis lasts for more than 12 weeks. Acute sinusitis is common, affecting approximately one million people per year in the [place]. ACUTE SINUSITIS CAUSES The most common cause of acute sinusitis is a vi ral infection associated with the common cold. Bacterial sinusitis occ urs much less commonly, in only 0.5 to 2 percent of cases, usually as a complication of viral sinus itis. Because antibiotics are effective only against bacterial, an d not viral, infections, most people do not need antibiotics for acute si nusitis. ACUTE SINUSITIS SYMPTOMS Symptoms of acute sinusitis include: ? Nasal congestion or blockage ? Thick, yellow to green discharge from the nose ? Pain in the teeth ? Pain or pressure in the face that is worse when bending fo rwards Other acute sinusitis symptoms can include fever (temperatur e greater than 100.4?F or 38?C), fatigue, cough, difficulty or inability to smell, ear pressure or fullness, headache, and bad breath. In most cases, these symptoms develop over the c ourse of one day and begin to improve within seven to 10 days. DO I NEED TO BE EXAMINED? It is difficult to know if you have a viral or bacterial sin us infection initially. However, most people with a viral infection impro ve without treatment within seven to 10 days after symptoms begin. Ba cterial sinusitis also sometimes improves without treatment, although it can a lso worsen and require treatment. If one or more of the following botherso me symptoms last more than seven days, an examination by a healthcare provider is recommended: ? Thick, yellow to green discharge from the nose ? Face or tooth pain, especially if it is only on one side ? Tenderness over the maxillary sinuses (located on the left and right side of the nose, inside the cheekbones) ? Symptoms that initially improve and then worsen When to seek immediate help ? If you have one or more of the following symptoms, you should seek medical attent ion immediately (even if symptoms have been present for less than seven days): ? High fever (>102.5? F or 39.2? C) ? Sudden, severe pain in the face or head ? Double vision or difficulty seeing ? Confusion or difficulty thinking clearly ? Swelling or redness around one or both eyes ? Stiff neck, shortness of breath ACUTE SINUSITIS TREATMENT Initial treatment of a sinus infection aims to relieve symptoms since almost everyone will improve within the first seven to 10 days. Exp erts recommend avoiding antibiotics during this time unless there is clear evidence of a severe bacterial infection. Initial treatment Pain relief ? Non-prescription pain medications, such as a cetaminophen (eg, Tylenol?) or ibuprofen (eg, Motrin?, Advil?) are recommended for pain. Nasal irrigation and saline sprays ? Rinsing the nose with a salt-water (saline) solution is called nasal irrigation or nasal lavage. Saline is also available in a standard nasa l spray, although this is not as effective as using larger amounts of water in an irrigation. Nasal irrigation is particularly useful for treating drainage down the back of the throat, sneezing, nasal dryness, and congestion. The t reatment helps by rinsing out allergens and ir ritants from the nose. Saline rinses also clean the nasal lining and can be used before appl dior sprays containing medications, to get a better effect from the medication. Nasal lavage with warmed saline can be performed as ne eded, once per day, or twice daily for increased symptoms. Nasal lavage carries few risks when performed correctly. Saline nasal sprays and irr igation kits can be purchased [id number]. Saline mix es can also be purchased or patients can make their own solution. A variety of devices, including bulb syr inges, Neti pots, and bottle sprayers, may be used to perform nasal lavage; instructions for nasal lavage are provided in the table. At least 200 mL (about 3/4 cup) of fluid is recommended for each nostril. Nasal decongestants ? Nasal decongestant sprays, including o xymetazoline (Afrin?) and phenylephrine (Lyle-synephrine?) can be used to temporarily treat congestion. However, these s prays should not be used for more than two to three days due to the risk of rebound congestion (when the nose is congested constantly unless the medication is used repeatedly). Other treatments ? Other karla atments for congestion, such as oral antihistamines (such as diphenhydramine/Benadryl?) or zinc supplements are not proven to improve symptoms of sinusitis and can have unwan romario side effects. Medications to thin secretions (such as guaifenesin) may help to clear m ucus. Secondline treatment ? If symptoms have not improved in seven to ten days, you should arrange for medical evaluation. You may need further treatment. Nasal glucocorticoids ? Nasal glucocorticoids (steroid s delivered by a nasal spray) can help to reduce sw elling inside the nose, usually within two to three days. These drugs have few side effects and dramatical ly relieve symptoms in most people. There are a number of nasal glucocorticoids available by prescription. These drugs are all effective, but differ in how frequently they must be used and how much they cost. You may need to use a nasal decongestant for a few days before starting a nasal glucocorticoid to reduce nasal swelling; this will allow the nasal glucocorticoid to reach more areas of the nasal passages Do I need an antibiotic? ? If bothersome symptom s of sinusitis persist for 10 or more days, it is possible that you have bacterial s inusitis. The need for antibiotics depends upon the severity of your symptoms. Mild symptoms ? There are two possible treatment options if you have mild sinusitis symptoms: treat with antibiotics or continue to watch and wait for one week. Watching and waiting is a reasonable opt ion because up to 75 percent of people with bacterial sinusitis improve within one feliz h without antibiotics. During the watch and wait period, treatments to improve symptoms ar e recommended. If symptoms worsen or do not improve after watching and waiting, treatment with an antibiotic is usually recommended. Treatments to relieve symptoms are recommended while using antibiotics. Moderate or severe symptoms ? Most healthcare providers will prescribe an antibiotic for moderate to severe symptoms (temperature >38. 3? C or 101? F and/or severe pain that interferes with usual activities). Treatments to relieve symptoms are also recommended during a ntibiotic treatment. One of the least expensive and most effective antibiotics fo r sinusitis is amoxicillin. An alternate antibiotic sammy l be prescribed if you are allergic to penicillin. Regardless of which antibiotic is prescrib ed, it is important to follow the dosing instructions carefully and to finish the entire course of treatment. Taking the medication less often than prescribe d or stopping the medication early can lead to complications, such as a recurr ent infection. What if I do not improve with treatment? ? If you do not imp rove or worsen after a course of antibiotics, you should be re-examined. In some cases, symptoms of sinusitis improve but then recur. This is usually because the infection was not completely eliminated by the a ntibiotic. An alternate antibiotic, extend ed antibiotic treatment, and/or further testing may be recommended, depending upon your individual situation. Referring Provider: SELF [[id number]] Allergies As of Date: 06/27/2019 Noted Allergy Reaction LISINOPRIL 11/14/2011 3 - Cough ZOCOR (SIMVASTATIN) 06/22/2009 Comments: myalgia Date Reviewed: 06/27/2019 Reviewed by: Jackelyn ([facility]) Dangelo - Fully Assessed Reason for Visit: Sinusitis [127] Cmt: with watery eyes AND laryngitis x 1 wee k Primary Visit Diagnosis:Other acute nonsuppurative paresh tis media of left ear, recurrence not specified [H65.192] Other Visit Diagnosis:Viral sinusitis [J32.9, B97.89] Order(s):amoxicillin-clavulanic acid (AUGMENTIN) 875-1 25 mg per tabletTake 1 tablet by mouth twice daily for 10 days.Disp: 20 tabletRfl: 0 fluticasone (FLONASE) 50 mcg/actuation nasal sprayUse 2 Spra ys in each nostril once daily. 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 Anxiety and depression [F41.9, F32.9] 10/29/2018 Other instructions from your clinician: ASSESSMENT/PLAN: 1. Other acute nonsuppurative otitis media of left ear, recu rrence not specified - ICD9: 381.00, ICD10: H65.192 (primary diagnosis) - Will begin treatment with Augmentin 875 mg PO BID for 10 d ays - Supportive care with plenty of fluids, rest, and analgesia prn. - AMOXICILLIN 875 MG-POTASSIUM CLAVULANATE 125 MG TABLET 2. Viral sinusitis - ICD9: 473.9, 079.99, ICD10: J32.9, B97. 89 - Discussed viral etiology and rationale for treatment. - Symptomatic treatment with prn analgesia - Supportive care with fluids and rest - FLUTICASONE PROPIONATE 50 MCG/ACTUATION NASAL SPRAY,SUSPEN EUFEMIA - may continue mucinex and sudafed - Follow-up with your PCP in 3-5 days if symptoms have not i mproved or sooner if symptoms worsen - Discussed red flags and need for immediate medical evaluat ion if any occur. - Discussed supportive care treatment with fluids, rest and analgesia. - Discussed expected course of illness Jackelyn Myles APRN.RN [facility] PATIENT INFO ACUTE SINUSITIS OVERVIEW Rhinosinusitis, or more commonly sinusitis, is the medical t erm for inflammation (swelling) of the lining of the sinuses and nos e. The sinuses are the hollow areas within the facial bones that are connec romario to the nasal openings. The sinuses are lined with mucous membranes, similar to the inside of the nose. There are two main types of sinusitis: acute and chronic. Ac martín sinusitis is inflammation that lasts for less than four weeks while ch ronic sinusitis lasts for more than 12 weeks. Acute sinusitis is c ommon, affecting approximately one million people per year in the [facility]. ACUTE SINUSITIS CAUSES The most common cause of acute sinusitis is a viral infectio n associated with the common cold. Bacterial sinusitis occurs much less c ommonly, in only 0.5 to 2 percent of cases, usually as a complication of viral sinusitis. Because antibiotics are effective only against bacterial, an d not viral, infections, most people do not need antibiotics for acute si nusitis. ACUTE SINUSITIS SYMPTOMS Symptoms of acute sinusitis include: ? Nasal congestion or blockage ? Thick, yellow to green discharge from the nose ? Pain in the teeth ? Pain or pressure in the face that is worse when bending fo rwards Other acute sinusitis symptoms can include fever (temperatur e greater than 100.4?F or 38?C), fatigue, cough, difficulty or inability to smell, ear pressure or fullness, headache, and bad breath. In most cases, these symptoms develop over the course of one day and begin to improve within seven to 10 days. DO I NEED TO BE EXAMINED? It is difficult to know if you have a viral or bacterial sin us infection initially. However, most people with a viral infection impro ve without treatment within seven to 10 days after symptoms begin. Bact erial sinusitis also sometimes improves without treatment, althoug h it can also worsen and require treatment. If one or more of the following bothersome symptoms last mor e than seven days, an examination by a healthcare provider is recommended : ? Thick, yellow to green discharge from the nose ? Face or tooth pain, especially if it is only on one side ? Tenderness over the maxillary sinuses (located on the left and right side of the nose, inside the cheekbones) ? Symptoms that initially improve and then worsen When to seek immediate help ? If you have one or more of the following symptoms, you should seek medical attention immediately (marcus n if symptoms have been present for less than seven days): ? High fever (>102.5? F or 39.2? C) ? Sudden, severe pain in the face or head ? Double vision or difficulty seeing ? Confusion or difficulty thinking clearly ? Swelling or redness around one or both eyes ? Stiff neck, shortness of breath ACUTE SINUSITIS TREATMENT Initial treatment of a sinus infection aims to relieve sympt oms since almost everyone will improve within the first seven to 10 da ys. Experts recommend avoiding antibiotics during this time unless there is clear evidence of a severe bacterial infection. Initial treatment Pain relief ? Non-prescription pain medications, such as rachell taminophen (eg, Tylenol?) or ibuprofen (eg, Motrin?, Advil?) are recomm ended for pain. Nasal irrigation and saline sprays ? Rinsing the nose with a salt-water (saline) solution is called nasal irrigation or nasal lavage . Saline is also available in a standard nasal spray, although this is n ot as effective as using larger amounts of water in an irrigation. Nasal irrigation is particularly useful for treating drainag e down the back of the throat, sneezing, nasal dryness, and congestion. The treatment helps by rinsing out allergens and irritants from the nose. Saline rinses also clean the nasal lining and can be used before applying sprays containing medications, to get a better effect from the medi cation. Nasal lavage with warmed saline can be performed as needed, once per day, or twice daily for increased symptoms. Nasal lavage carries few risks when performed correctly. Saline nasal sprays and irrigation kits can be purchased [id number]. Saline mixes can also be purchas ed or patients can make their own solution. A variety of devices, including bulb syringes, Neti pots, an d bottle sprayers, may be used to perform nasal lavage; instructions for nasal lavage are provided in the table. At least 200 mL (about 3/4 cup) of fluid is recommended for each nostril. Nasal decongestants ? Nasal decongestant sprays, including o xymetazoline (Afrin?) and phenylephrine (Lyle-synephrine?) can be used to temporarily treat congestion. However, these sprays should not be used f or more than two to three days due to the risk of rebound congestion (whe n the nose is congested constantly unless the medication is used repeatedl y). Other treatments ? Other treatments for congestion, such as oral antihistamines (such as diphenhydramine/Benadryl?) or zinc s upplements are not proven to improve symptoms of sinusitis and can have unw anted side effects. Medications to thin secretions (such as guaifenesin ) may help to clear mucus. Secondline treatment ? If symptoms have not improved in navdeep n to ten days, you should arrange for medical evaluation. You may need furt her treatment. Nasal glucocorticoids ? Nasal glucocorticoids (steroids deli ankit by a nasal spray) can help to reduce swelling inside the nose, us ually within two to three days. These drugs have few side effects and maribel matically relieve symptoms in most people. There are a number of nasal glucocorticoids available by pre scription. These drugs are all effective, but differ in how frequently they must be used and how much they cost. You may need to use a nasal decongestant for a few days befo re starting a nasal glucocorticoid to reduce nasal swelling; this will all ow the nasal glucocorticoid to reach more areas of the nasal passages Do I need an antibiotic? ? If bothersome symptoms of sinusit is persist for 10 or more days, it is possible that you have bacterial sinu sitis. The need for antibiotics depends upon the severity of your sympt oms. Mild symptoms ? There are two possible treatment options if you have mild sinusitis symptoms: treat with antibiotics or continue to wa [facility] and wait for one week. Watching and waiting is a reasonable option because up to 75 percent of people with bacterial sinusitis improve within one month wit hout antibiotics. During the watch and wait period, treatments to improve symptoms are recommended. If symptoms worsen or do not improve after watching and wait ing, treatment with an antibiotic is usually recommended. Treatments to rel ieve symptoms are recommended while using antibiotics. Moderate or severe symptoms ? Most healthcare providers will prescribe an antibiotic for moderate to severe symptoms (temperature >38. 3? C or 101? F and/or severe pain that interferes with usual activities). Treatments to relieve symptoms are also recommended during a ntibiotic treatment. One of the least expensive and most effective antibiotics fo r sinusitis is amoxicillin. An alternate antibiotic will be prescribed if y ou are allergic to penicillin. Regardless of which antibiotic is pr escribed, it is important to follow the dosing instructions carefully and to finish the entire course of treatment. Taking the medication less often than prescribed or stopping the medication early can lead to comp lications, such as a recurrent infection. What if I do not improve with treatment? ? If you do not imp rove or worsen after a course of antibiotics, you should be re-examined. In some cases, symptoms of sinusitis improve but then recur. This is usually because the infection was not completely eliminated by the antibiotic. An alternate antibiotic, extended antibiotic karla atment, and/or further testing may be recommended, depending upon your bhanu vidual situation. Prescriptions ordered this encounter Disp Refills Start End AMOXICILLIN 875 MG-POTASSIUM CLAVULA* 20 t* 0 06/27/201911/2018 Route: ORAL Sig: Take 1 tablet by mouth twice daily for 10 days. FLUTICASONE PROPIONATE 50 MCG/ACTUAT* 1 Artie* 0 06/27/2019 Route: EACH NOSTRIL Sig: Use 2 Sprays in each nostril once daily. Rinse mouth af ter use. Disposition: Return if symptoms worsen or fail to improve. Follow-up and Disposition History Recorded Encounter Status:Closed by JACKELYN MYLES on 06/27/19 Vital Signs Vital Sign Description Value / Unit Date Location The following section is limited to 5 en tries per type and includes entries from the following time range: 20200420 - 20200404 7. Body Temperature 98.1 [degF] 04-20-2020 [facility] ([id number]) Body weight 97.5 kg 04-20-2020 [facility] ([id number]) Body weight 97.52 kg 03-16-2020 [facility] ([id number]) BP Diastolic 91 mm[Hg] 04-20-2020 [facility] ([id number]) BP Systolic 145 mm[Hg] 04-20-2020 [facility] ([id number]) Height 172.7 cm 03-16-2020 [facility] ([id number]) Pulse (Heart Rate) 84 /min 04-20-2020 [facility] ([id number]) Pulse Oximetry 93 % 04-20-2020 [facility] ([id number]) Respiratory Rate 16 /min 04-20-2020 [facility] ([id number]) Encounters Date Type Reason Provider Location 05-12-2020 - Evaluation and Requires vaccination [facility] Nurse [facility] 05-12-2020 management of Daina inpatient Comment: Need for vaccination (Primar y Dx) 05-01-2020 - Evaluation and Bilateral carpal [facility] 05-01-2020 management of tunnel syndrome inpatient Comment: Bilateral carpal tunnel synd naty (Primary Dx) 03-16-2020 - Letter encounter [facility] 03-16-2020 04-28-2020 - Patient encounter External [facility] 04-28-2020 procedure Provider 03-16-2020 - Patient encounter Bilateral johnathonal [facility] 03-16-2020 procedure tunnel syndrome Comment: Bilateral carpal tunnel synd naty (Primary Dx) 04-28-2020 Results Only External Provider [facility] 04-[facility] 04-20-2020 visit by physician [facility] Comment: Bilateral carpal tunnel synd naty [G56.03] 03-21-2020 - Telephone encounter Bilateral johnathonal [facility] 03-21-2020 tunnel syndrome Comment: Schedule Surgery Procedures Procedure Name Date Provider Location INFLUENZA SEASONAL 05-08-2020 Raysa A Tamiel [facility] QUADRIVALENT HIGH DOSE AGE ([id number] 5) 65+ EXTERNAL PROCEDURE 04-28-2020 External Provider [facility] ([id number]) Colonoscopy 07-08-2017 - [facility] 07-08-2017 ([id number]) Plan of Treatment Plan Description Date Location DTAP,TDAP,TD (4 - Td) DTAP,TDAP,TD (4 - Td) 10-10-2029 - [facility] 10-10-2029 ([id number]) LIPID SCREEN LIPID SCREEN 09-30-2024 - [facility] 09-30-2024 ([id number]) DIABETES SCREEN DIABETES SCREEN 09-30-2022 - [facility] 09-30-2022 ([id number]) COLONOSCOPY COLONOSCOPY 07-08-2022 - [facility] 07-08-2022 ([id number]) COLORECTAL CANCER COLORECTAL CANCER 07-08-2022 - [facility] in SCREENING,SEE MODIFIER SCREENING,SEE MODIFIER 07-08-2022 ([id number]) ANNUAL PCP TEAM CHRONIC ANNUAL PCP TEAM CHRONIC 2020 - [facility] DISEASE VISIT DISEASE VISIT 2020 ([id number]) INFLUENZA (#1) INFLUENZA (#1) 2020 - [facility] 04-04-2020 ([id number]) ADVANCE DIRECTIVE ADVANCE DIRECTIVE 10-04-2011 - [facility] in DISCUSSION DISCUSSION 10-04-2011 ([id number]) BP CONTROLLED (<130/80) BP CONTROLLED (<130/80) 1964 - [facility] 1964 ([id number]) PRE-PROCEDURE & PRE-PROCEDURE & 03-21-2021 [facility] PRE-OPERATIVE COVID PRE-OPERATIVE COVID ([id number]) Microbiology Routine Bilateral carpal tunnel syndrome 1 Occurrences starting 03/21/2020 until 03/21/2021 Comment: 1 Occurrences starting 03/21 until 03/21/2021 no information [facility] ([id number]) Immunizations Vaccine Notes Status Date Location DT(PEDIATRIC) diphtheria and tetanus (completed) 06-20-1989 - [facility] toxoids, adsorbed for 06-20-1989 ([id number] ) pediatric use Influenza Vaccine, influenza virus (completed) 05-18-2012 - [facility] Split-Non Spec vaccine, unspecified 05-18-2012 (4419 5) formulation Influenza Vaccine, influenza virus (completed) 06-02-2009 - [facility] Split-Non Spec vaccine, unspecified 06-02-2009 (4419 5) formulation Influenza Vaccine, influenza virus (completed) 06-08-2008 - [facility] Split-Non Spec vaccine, unspecified 06-08-2008 (4419 5) formulation Influenza Vaccine, influenza virus (completed) 06-08-2007 - [facility] Split-Non Spec vaccine, unspecified 06-08-2007 (4419 5) formulation Influenza Vaccine, influenza virus (completed) 06-03-2006 - [facility] Split-Non Spec vaccine, unspecified 06-03-2006 (4419 5) formulation Influenza Seasonal - influenza, high dose (completed) 05-16-2018 - [facility] High Dose - Age 65+ seasonal, 05-16-2018 (31565) preservative-free Influenza Seasonal - influenza, high dose (completed) 07-14-2017 - [facility] High Dose - Age 65+ seasonal, 07-14-2017 ([id number]) preservative-free influenza, high-dose, influenza, high-dose, (completed) 05-12-2020 [facility] quadrivalent vaccine quadrivalent vaccine (53780) (FLUZONE HIGH DOSE (FLUZONE HIGH DOSE QUADRIVALENT) QUADRIVALENT) Pneumococcal-13 Vac pneumococcal conjugate (completed) 09-15-2014 - [facility] Conjugate vaccine, 13 valent 09-15-2014 ([id number]) [facility] pneum[facility] ([facility]) [facility], 01-17-2012 (441 95) 23 valent Tdap (Age 7+) tetanus toxoid, reduced (completed) 10-11-2019 - [facility] diphtheria toxoid, and 10-11-2019 (4419 5) acellular pertussis vaccine, adsorbed Tdap (Age 7+) tetanus toxoid, reduced (completed) 08-08-2006 - [facility] diphtheria toxoid, and 08-08-2006 (4419 5) acellular pertussis vaccine, adsorbed Zoster Recombinant zoster vaccine (completed) 01-13-2020 - [facility] (Shingrix) recombinant 01-13-2020 ([id number]) Zoster Recombinant zoster vaccine (completed) 10-11-2019 - [facility] (Shingrix) recombinant 10-11-2019 ([id number]) Payers Payer Name Policy Number Location [facility] [id number] [facility] ([id number] [phone]) MEDICARE [id number] [facility] (44 567) The following information is from the original human readable contentNo Payer Records Found Social History Type Social History Date Location Description Tobacco use and exposure Never used 03-16-2020 [facility] 05-01-2020 ([id number]) History SDOH Education 15 2019 - [facility] 2019 ([id number]) Alcohol intake Current non-drinker of 03-16-2020 [facility] alcohol (finding) 05-01-2020 ([id number]) History SDOH Alcohol 1 2019 - [facility] Frequency 2019 (60055) History SDOH Alcohol Std 98 2019 - [facility] Dr[facility] ([id number]) History SDOH Social 4 2019 - [facility] Phone 2019 ([id number]) History SDOH Social 3 2019 - [facility] 2019 (49492) Tobacco smoking status Former smoker 03-16-2020 - [facility] [facility] 05-01-2020 ([id number]) History SDOH Financial 5 2019 - [facility] 2019 ([id number]) History SDOH Transport 2 2019 - [facility] 2019 ([id number]) Tobacco Comment quit 1970s 05-18-2012 - [facility] 05-18-2012 ([id number]) Sex Assigned At Not on file [facility] ([id number]) Exposure to SARS-CoV-2 Not sure [facility] (event) ([id number]) Sex Assigned At Male [facility] ([id number]) The following information is from the original human readable contentNo Social History Records Found History of Past Illness Problem Noted Date Resolved Date Changeable mood 09/01/2017 10/04/2019 Overview: [address] Myers Impaired fasting glucose 07/31/2016 10/04/2019 Trigger ring finger of right hand 07/12/20132019 Acute gastritis without mention of hemorrhage 10/28/2006 07/31/2016 Other specified disease of hair and hair follicles 7 10/04/2019 Dysmetabolic syndrome X 08/08/2006 10/04/2019 Problem Noted Date Resolved Date Changeable mood 09/01/2017 10/04/2019 Overview: [address] Myers Impaired fasting glucose 07/31/2016 10/04/2019 Trigger ring finger of right hand 07/12/20132019 Acute gastritis without mention of hemorrhage 10/28/2006 07/31/2016 Other specified disease of hair and hair follicles 7 10/04/2019 Dysmetabolic syndrome X 08/08/2006 10/04/2019 Problem Noted Date Resolved Date Changeable mood 09/01/2017 10/04/2019 Overview: [address] Myers Impaired fasting glucose 07/31/2016 10/04/2019 Trigger ring finger of right hand 07/12/20132019 Acute gastritis without mention of hemorrhage 10/28/2006 07/31/2016 Other specified disease of hair and hair follicles 7 10/04/2019 Dysmetabolic syndrome X 08/08/2006 10/04/2019 Problem Noted Date Resolved Date Changeable mood 09/01/2017 10/04/2019 Overview: [address] Myers Impaired fasting glucose 07/31/2016 10/04/2019 Trigger ring finger of right hand 07/12/20132019 Acute gastritis without mention of hemorrhage 10/28/2006 07/31/2016 Other specified disease of hair and hair follicles 7 10/04/2019 Dysmetabolic syndrome X 08/08/2006 10/04/2019 Advance Directives No Advanced Directives Records Found Documents on File Type Date 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 Raysa Coughlin- EMG done on 01/19/20) HPI Patient presents with some ongoing problems in the left hand. 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 No specific pain but does have nighttime symptoms. He also has symptoms when he is riding his tractor. [id number]. Previous nerve test done at local facility. ASSESSMENT: G56.03 Bilateral carpal tunnel syndrome (primary encounter diagnosis) PLAN: We had a lengthy discussion in the office. The risks, benefits, alternatives and potential complications both operative and nonoperative treatment for the left carpal tunnel as well as the right without other electrodiagnostic exam on the right were reviewed. He would like to pursue bilateral surgeries under local anesthetic. We will help get him scheduled. FOLLOW UP INSTRUCTIONS: As above Mr. Joelle Mariee was advised as to contrast therapies and/or to take analgesics/anti-inflammatories as needed and all contraindications were reviewed. OBJECTIVE: Mr. Joelle Mariee is a pleasant 74 year old in no apparent distress. Gen:Ht 5' 8 (1.73m) Wt 215 lb (97.5kg) BMI 32.70 kg/(m^2). nl development, non obese, no deformities ENT: Normocephalic, normal hearing, moist mucosa CV: Pulses:Radial= 2+ and symmetric, capillary refill < 2 secs, no peripheral edema/varicosities Skin: no rash, bruising or lesions. Good turgor. Psych: cooperative and appropriate, alert and oriented x 3, good mood and affect. Musculoskeletal: Cervical spine has supple range of motion and no tenderness to palpation, Spurling's sign negative. Shoulders and elbows have full range of motion. Negative Tinel's over the cubital tunnel, no subluxation of ulnar nerve at the elbow with flexion. Negative Tinel's over Guyon's canal. Inspection revealsno thenar atrophy. Intact sensation to light touch in the radial 3 digits, symmetrically. Sensation intact in the ulnar 2 digits with out intrinsic atrophy/weakness. Positive Tinel's at the wrist, positive carpal tunnel compression testing on the left worse than right. No locking or catching of the digits. No tenderness to palpation or masses noted in the forearm or hands. IMAGING: Electrodiagnostic exam from an outside facility on the left suggest moderate carpal tunnel without any cervical involvement. Supporting Subjective Information Below: Past Medical History: PAST MEDICAL HISTORY Diagnosis Date ? BPH W URINARY OBS/LUTS 08/08/2006 ? Carpal tunnel syndrome of left wrist ? Cervical disc disorder with radiculopathy of cervical region 09/03/2011 ? Changeable mood 09/01/[address] Myers ? ED (erectile dysfunction) 03/30/2013 ? Family history of malignant neoplasm lung ca ? Hyperlipidemia LDL goal < 130 07/13/2013 ? Hypertension 09/26/2011 Past Surgical History: PAST SURGICAL HISTORY Procedure Laterality Date ? COLONOSCOP W/ OR W/O RUST SPEC 2001 Colonoscopy ? COLONOSCOP W/ OR W/O BRSH SPEC 10/28/2006 Colonoscopy-repeat in ? COLONOSCOP W/ OR W/O BRSH SPEC 02/25/2012 Colonoscopy ? COLONOSCOP W/ OR W/O BRSH SPEC 07/08/2017 Colonoscopy ? EGD W/O OR W/BRUSH/WASH 10/28/2006 EGD Family History: FAMILY HISTORY Problem Relation Age of Onset ? Cancer Mother lung ? Cancer Father COLON ? None Sister ? None Brother ? Diabetes Brother Social History: Social History Tobacco Use ? Smoking status: Former Smoker ? Smokeless tobacco: Never Used ? Tobacco comment: quit 1970s Substance Use Topics ? Alcohol use: No Frequency: Never Drinks per session: Patient refused Binge frequency: Patient refused ? Drug use: No Medications: Current Outpatient Medications Medication Sig ? losartan (COZAAR) 50 mg tablet Take 1 tablet by mouth once daily. ? EFFEXOR 25 MG TAB Take one(1) tablet twice daily. ? fluticasone (FLONASE) 50 mcg/actuation nasal spray Use 2 Sprays in each nostril once daily. Rinse mouth after use. (Patient not taking: Reported on 03/16/2020 ) No current facility-administered medications for this visit. Allergies: Lisinopril and Zocor [Simvastatin] ROS: General (negative for fatigue, malaise, weight loss/gain) HEENT (negative for headache, earache, recent vision changes, sinus pain, sore throat) Respiratory (no recent shortness of breath, hemoptysis) CV (negative for chest tightness, palpitations) Musculoskeletal (see HPI) Psych (no depression, anxiety) REFERRING PHYSICIAN: Mr. Joelle Mariee was referred to me for consultation by the following physician. This consultation note will be sent to the following physician by either mail or electronic medical record. Raysa Coughlin III MD [address] [facility] [address] Raysa Coughlin III MD [id number] [facility] [id number] This note was partially generated using [email or web address] voice recognition system, and there may be some incorrect words, spellings, and punctuation that were not noted in checking the note before saving. Bradly Sahu MD Andra Bai Ma - 03/16/2020 10:57 AM EDTPatient presents with: Left Wrist - New Left carpal tunnel syndrome: Referrred by Dr. Raysa Coughlin - EMG done on 01/19/20 AMB ROOMING INTAKE FLOWSHEET DATA Risk Screening Do you have concerns about personal safety or safety in the home?: No Pain Pain Location: Wrist-Left Description: Numbness, Tingling Duration Amount of Time: 20 Duration Units: Years Frequency: Intermittent Patient states he has had numbness and tingling in his whole hand. 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 Patient feels it may he have some shoulder problems. Patient is right hand dominant. EMG done at [facility] on 01/19/20. 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 Taking no med's for the pain. documented in this encounterBradly Sahu - 05/01/2020 1:19 PM EDT Bradly Sahu MD Department of Orthopaedics Orthopaedics [address] [place] [address] Dept: [phone] Dept May 01, 2020 CHIEF COMPLAINT: Post Op of the Right Hand, Post Op of the Left Hand, and 1 week 4 days post op (bilateral CTR). HPI Is 11 days status post bilateral carpal tunnel releases. He is doing great. He has improvement in all of his symptoms already. He has no postoperative pain. He is here for suture removal. ASSESSMENT: G56.03 Bilateral carpal tunnel syndrome (primary encounter diagnosis) SUMMARY/PLAN: Follow-up as needed Exam: Bilateral incisions look excellent. Healing very nicely without concerns. Supporting Information Below: Medications: Current Outpatient Medications Medication Sig ? losartan (COZAAR) 50 mg tablet Take 1 tablet by mouth once daily. ? EFFEXOR 25 MG TAB Take one(1) tablet twice daily. ? fluticasone (FLONASE) 50 mcg/actuation nasal spray Use 2 Sprays in each nostril once daily. Rinse mouth after use. (Patient not taking: Reported on 03/16/2020 ) No current facility-administered medications for this visit. Allergies: Lisinopril and Zocor [Simvastatin] This note was partially generated using [email or web address] voice recognition system, and there may be some incorrect words, spellings, and punctuation that were not noted in checking the note before saving. Bradly Sahu MD retty Clark RN - 05/01/2020 12:57 PM EDT AMB ROOMING INTAKE FLOWSHEET DATA Patient presents with: Right Hand - Post Op Left Hand - Post Op 1 week 4 days post op: bilateral CTR Incisions well approximated and without redness, edema or exudate. Sutures intact. has needed nothing for pain. documented in this encounter Assessments Diagnosis Bilateral carpal tunnel syndrome - Prima ry Carpal tunnel syndrome Diagnosis Bilateral carpal tunnel syndrome - Prima ry Carpal tunnel syndrome Bilateral carpal tunnel syndrome Carpal tunnel syndrome Diagnosis Bilateral carpal tunnel syndrome - Prima ry Carpal tunnel syndrome Diagnosis Need for vaccination - Primary Need for prophylactic vaccination and in oculation against unspecified single disease Medications Administered Section Inactive Administered Medications - up to 3 most recent administrations Medication Order MAR Action Action Date Dose Rate Site lidocaine-EPINEPHrine (PF) 1 Given by LIP 04/20/2020 1:48 PM EDT 3 mL Hand, Left %-1:200,000 30 mL injection 30 mL, INTRADERMAL, DIRECTED, Starting Mary 04/20/20 at 1330, Until Mary 04/20/20 at 1503, Preprocedure lidocaine-EPINEPHrine (PF) 1 Given by LIP 04/20/2020 1:40 PM 15 mL Hand, Right %-1:200,000 30 mL injection EDT 30 mL, INTRADERMAL, DIRECTED, Starting Mary 04/20/20 at 1330, Until Mary 04/20/20 at 1503, Preprocedure Summary Purpose Family History No Family History Records Found Additional Source Comments FOR RECORDS PERTAINING TO PATIENTS WHO ARE OR HAVE BEEN ENROLLED IN A CHEMICAL DEPENDENCY/SUBSTANCE ABUSE PROGRAM, SOME INFORMATION MAY BE OMITTED. This clinical summary was aggregated from multiple sources. Caution should be exercised in using it in the provision of clinical care. This summary normalizes information from multiple sources, and as a consequence, information in this document may materially changethe coding, format and clinical context of patient data. In addition, data may be omittedin some cases. CLINICAL DECISIONS SHOULD BE BASED ON THE PRIMARY CLINICAL RECORDS. [facility] provides no warranty or guarantee of the accuracy or completeness of information in this document. UNRECOGNIZED CONTENT PROVIDED BELOW FOR UNRECOGNIZED SECTION Source Comments In the event this information is protected by the Federal Confidentiality of Alcohol and Drug Abuse Patient Records regulations: The Federal rules restrict any use of the information to criminally investigate or prosecute any alcohol or drug abuse patient.[facility] the event this information is protected by the Federal Confidentiality of Alcohol and Drug Abuse Patient Records regulations: The Federal rules restrict any use of the information to criminally investigate or prosecute any alcohol or drug abuse patient.[facility] the event this information is protected by the Federal Confidentiality of Alcohol and Drug Abuse Patient Records regulations: The Federal rules restrict any use of the information to criminally investigate or prosecute any alcohol or drug abuse patient.[facility] the event this information is protected by the Federal Confidentiality of Alcohol and Drug Abuse Patient Records regulations: The Federal rules restrict any use of the information to criminally investigate or prosecute any alcohol or drug abuse patient.[facility] the event this information is protected by the Federal Confidentiality of Alcohol and Drug Abuse Patient Records regulations: The Federal rules restrict any use of the information to criminally investigate or prosecute any alcohol or drug abuse patient.[facility] the event this information is protected by the Federal Confidentiality of Alcohol and Drug Abuse Patient Records regulations: The Federal rules restrict any use of the information to criminally investigate or prosecute any alcohol or drug abuse patient.[facility] the event this information is protected by the Federal Confidentiality of Alcohol and Drug Abuse Patient Records regulations: The Federal rules restrict any use of the information to criminally investigate or prosecute any alcohol or drug abuse patient.[facility] UNRECOGNIZED CONTENT PROVIDED BELOW FOR UNRECOGNIZED SECTION Reason for Visit Reason Comments Left carpal tunnel syndrome Referrred by Dr. Raysa Solis ul - EMG done on 01/19/20 New Reason Onset Date Comments Schedule Surgery 03/21/2020 Reason Comments 1 week 4 days post op bilateral CTR Post Op Reason Onset Date Comments Imm/Inj 05/08/2020 Flu Vaccine UNRECOGNIZED CONTENT PROVIDED BELOW FOR UNRECOGNIZED SECTION Miscellaneous Notes Telephone Encounter - Krissy Farley Ma - 03/24/2020 3:33 PM EDTSurgery and all appointments have been scheduled and mailed to patient. elephone Encounter - Savannah Patel) - 03/21/2020 2:42 PM EDTCOVID order signed. elephone Encounter - Krissy Farley Ma - 03/21/2020 2:17 PM EDTPatient scheduled for bilateral CTR on 04/20/2020 at [facility] under local anesthesia. Post op appointments scheduled and mailed to patient. Please sign pre op COVID 19 testing order. documented in this encounterPatient Education - Tristan JoynerRn)KORTNEY - 04/20/2020 1:50 PM EDTDischarge Instructions were reviewed pre-operatively with the patient. All questions and concerns were addressed. Tristan Joyner RN PRE OP LEARNING ASSESSMENT PROCEDURE/SURGERY: SURGERY: RIGHT & LEFT CARPAL TUNNEL RELEASE READINESS TO LEARN COGNITIVE ABILITY: Alert and oriented MOTIVATION TO LEARN: Eager Interested FAMILY SUPPORT: None - Unavailable/disinterested PATIENT LEARNS BEST BY: Individual Instruction Verbal Instruction FACTORS AFFECTING LEARNING: None PHYSICAL LIMITATIONS AFFECTING LEARNING: None Electronically Signed By: Tristan Joyner RN In Department: AMBULATORY SURGERY documented in this encounter UNRECOGNIZED CONTENT PROVIDED BELOW FOR UNRECOGNIZED SECTION H&P Notes Bradly Sahu - 04/20/2020 1:50 PM EDT UPDATED HISTORY AND PHYSICAL EXAMINATION SERVICE DATE: 04/20/2020 SERVICE TIME: 1:50 PM PHYSICAL EXAM MUST BE COMPLETED ON ADMISSION The History and Physical (completed in the past 30 days) has been reviewed and the patient has been examined. The contents accurately reflect the patient's condition with the following additions or revisions since the H&P was completed. Examination indicates no changes. This H&P can be found in the Electronic Medical Record dated. SIGNATURE: Bradly Sahu MD PATIENT NAME: Joelle Mariee DATE: April 20, 2020 TIME: 1:50 PM PAGER: documented in this encounter UNRECOGNIZED CONTENT PROVIDED BELOW FOR UNRECOGNIZED SECTION Nursing Notes Tristan Joyner Rn, RN - 04/20/2020 3:05 PM EDTPatient did not experience a fall prior to discharge. Patient did not experience a burn prior to discharge. Tristan Joyner RN Tristan ibarra Rn, RN - 04/20/2020 3:00 PM EDTPOST OP LEARNING RESPONSE INSTRUCTION PROVIDED TO: Patient METHOD OF INSTRUCTION: Individual instruction Written instruction - handouts Verbal instruction PATIENT / FAMILY RESPONSE: Information received as demonstrated by interest and questions FOLLOW-UP PLAN: Patient instructed to call with any further issues SUPPLEMENTAL MATERIAL: None REFERRAL (RECOMMENDATION): None Electronically Signed By: Tristan Joyner RN In Department: AMBULATORY SURGERY Tristan ibarra Rn, RN - 04/20/2020 2:45 PM EDT Patient received in Pacu 2. Resting comfortably sitting in bed. Color pink. Skin warm. Dressing clean dry and intact . Capillary refill WNL. Ice pack applied to operative site. No complaints offered. Alfredo Joyner Rn Heaven Mars Rn, RN - 04/20/2020 2:43 PM EDTPatient did not experience a fall within the Intraoperative area. Patient did not experience a burn within the Intraoperative area. Heaven Mars RN imaroberto, Tristan (Rn), RN - 04/20/2020 1:54 PM EDTCCF [facility] PRE-OP NURSING HAND OFF NOTE SBAR Hand off given to Caryl Fischer RN. Hand off was communicated verbally and at the patient's bedside and all questions were answered. FALLS/CORDERO Patient did not experience a fall within the Preoperative area. Patient did not experience a burn within the Preoperative area. Tristan Joyner RN documented in this encounter UNRECOGNIZED CONTENT PROVIDED BELOW FOR UNRECOGNIZED SECTION No Status Records Found UNRECOGNIZED CONTENT PROVIDED BELOW FOR UNRECOGNIZED SECTION INFORMATION SOURCE DATE CREATED AUTHOR AUTHOR'S ORGANIZATIO N 05/13/2020 [facility] Ashok parker
== END ==
PROVIDERS: PCP Family Medicine; Referring Provider Family Medicine; Visit Provider Family Medicine
DX: G56.02 Carpal tunnel syndrome, left upper limb (principal)
CPT/HCPCS: 95886; 95909

== ENCOUNTER 2020-06-13 10:30 | Emergency (ER) | payer MEDICARE, BC, SELFPAY ==
[2020-06-13 10:31] VITALS: BP 157/81; PULSE 80; RESP 20; TEMP 37.2; O2SAT 96; BMI 33.5
[2020-06-13 10:37] VITALS: BP 157/81; PULSE 80; RESP 20; TEMP 37.2; O2SAT 96
--- NOTE | 2020-06-13 11:09 | ED.DCSUM_ITS ---
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 They are feeling better but he is still feeling very fatigued. He states he is not eating or drinking much because of decreased appetite and nausea. This is his first visit to a healthcare provider because of feeling poorly. He has had no dyspnea, confusion, neck stiffness, headaches, neurologic symptoms. - Past Medical History (1) Benign essential hypertension Status: Chronic (2) Cervical spondylosis Status: Chronic (3) History of hyperlipidemia Status: Chronic (4) Obstructive sleep apnea Status: Chronic Past Medical History - Allergies and Home Meds Allergies/Adverse Reactions: Allergies No Known Allergies Allergy (Verified 06/13/20 10:37) Primary Care Physician: Deuce Coughlin III, MD [Primary Care Provider] - Surgical History: tonsillectomy Lives: With Family Smoking Status: Former smoker Review of Systems General: Reports: Chills, Fever, Malaise. Denies: Sweats Eyes: Denies: Visual changes - bilaterally, Diplopia ENT: Denies: Bilateral ear pain, Rhinorrhea, Sore throat Cardiovascular: Denies: Chest pain, Palpitations Respiratory: Reports: Cough. Denies: Dyspnea, Sputum, Dyspnea on exertion, Orthopnea Gastrointestinal: Reports: Nausea, Vomiting. Denies: Abdominal pain, Diarrhea, Melena, Hematochezia Genitourinary: Denies: Dysuria, Hematuria, Frequency Musculoskeletal: Reports: Myalgias. Denies: Neck pain, Back pain, Swelling, Extremity Pain Skin: Denies: Rash, Wounds Neurological: Denies: Headache, Weakness, Numbness Physical Exam Vital Signs/Narrative: Vital Signs Temp Pulse Resp BP Pulse Ox 06/13/20 10:37 99 F 80 20 H 157/81 H 96 06/13/20 10:31 99 F 80 20 H 157/81 H 96 Inital Vital Signs reviewed: Yes General: Well nourished, Well developed, No Acute Distress - Well-appearing, conversive in full sentences Head: Normocephalic, Atraumatic Eyes: Perrl, EOMI ENT: Moist mucous membranes, No rhinorrhea Neck: Supple, Nontender Cardiovascular: Regular rate, Regular rhythm, No murmurs. Negative for: Tachycardia Respiratory: No distress, CTA bilaterally, Chest nontender Abdomen: Soft, Nontender, Nondistended, Normal bowel sounds Back: Nontender, Normal Inspection. Negative for: CVA tenderness Extremities: Nontender, No edema. Negative for: Calf Tenderness Skin: Normal color, No rash, No Trauma Neurological: Alert, Oriented x3, Cranial nerves II-XII grossly intact, Normal Strength, Normal Sensation, Normal Gait Psychological: Normal affect, Normal Mood Diagnostic/Tx/Re-eval Laboratory Tests 06/13/20 06/13/20 Range/Units 10:35 10:35 WBC 5.0 (4.4-11.0) K/mm3 RBC 4.29 L (4.6-6.2) M/mm3 Hgb 13.1 (13.0-16.5) g/dL Hct 39.5 L (40-54) % MCV 92.1 (80-94) fL MCH 30.5 (27.0-32.0) pg MCHC 33.2 (32-36) g/dL RDW Std Deviation 39.0 (35.1-43.9) fl RDW Coeff of Kervin 11.5 L (11.6-14.6) % Plt Count 281 (150-450) K/mm3 MPV 10.1 (6.2-12.0) fl Immature Gran % (Auto) 0.800 (0.0-0.9) % Neut % (Auto) 79.0 H (47-70) % Lymph % (Auto) 11.6 L (19-41) % [place] % (Auto) 8.4 (0-10) % Eos % (Auto) 0.0 (0-5) % Baso % (Auto) 0.2 (0-1) % Absolute Neuts (auto) 4.0 (2.0-7.7) X10^3/uL Absolute Lymphs (auto) 0.58 L (0.83-4.51) X10^3/uL Nucleated RBC % 0 (0-5) % Sodium 138 (136-145) mmol/L Potassium 4.0 (3.5-5.1) mmol/L Chloride 105 (98-107) mmol/L Carbon Dioxide 29.0 (21.0-32.0) mmol/L Anion Gap 4 L (5-15) BUN 15 (7-18) mg/dL Creatinine 0.83 (0.70-1.30) mg/dL Estim Creat Clear Calc 76.69 ml/min Est GFR (MDRD) Af Amer 117 (>60) mL/min Est GFR (MDRD) Non-Af 97 (>60) mL/min BUN/Creatinine Ratio 18.1 (10-20) RATIO Glucose 109 H (74-106) mg/dL Calcium 9.1 (8.5-10.1) mg/dL - Medical Decision Making Labs are reassuringly normal, patient was given a liter of IV fluid along with Zofran and is feeling better. He is well-appearing, ambulatory, likely has Covid, we sent an outpatient test that will come back in 3-5 days, he was advised to quarantine at home and was prescribed Zofran. We discussed reasons to return including dyspnea, he is comfortable with this overall plan. ED Disposition - Plan for ED Patient: Disposition: Home or Assisted Living Diagnosis: Disease due to 2019-nCoV Instructions: ED URI Viral Prescriptions: Ondansetron [Zofran Odt] 8 mg PO Q8H PRN PRN #20 tab PRN Reason: Nausea Transmission Status: Pending to [id number] Referrals: Deuce Coughlin III, MD [Primary Care Provider] - 1 Week if not improving Additional Instructions: See attached quarantine instructions regarding COVID-19. Stay hydrated. May take antacids if needed in addition to the nausea medication.
[2020-06-13] MEDS: 0.9% Normal Saline 1,000 ML 999 ML IV (11:12)
[2020-06-13] MEDS: Ondansetron 4 MG/2 ML Vial IV (11:12)
[2020-06-13 11:21] LABS: Absolute Lymphocyte Count 0.58 X10^3/uL (0.83-4.51); Basophil# 0.01 X10^3/uL; Basophil% 0.2 % (0-1); Hematocrit 39.5 % (40-54); Hemoglobin 13.1 g/dL (13.0-16.5); Lymphocyte # 0.58 X10^3/ul (4.0); Lymphocyte % 11.6 % (19-41); Mean Corp Hgb Conc 33.2 g/dL (32-36); Mean Corpuscular Hgb 30.5 pg (27.0-32.0); Mean Corpuscular Volume 92.1 fL (80-94); Mean Platelet Vol. 10.1 fl (6.2-12.0); Monocyte# 0.42 X10^3/uL; Monocyte% 8.4 % (0-10); NRBC Flagged by Analyzer 0 % (0-5); Neutrophil # 3.96 X10^3/uL (2.7-7.7); POSITIVE DIFFERENTIAL YES; POSITIVE MORPHOLOGY YES; Platelet Count 281 K/mm3 (150-450); RBC Distribution Width CV 11.5 % (11.6-14.6); Red Blood Count 4.29 M/mm3 (4.6-6.2)
[2020-06-13 11:23] LABS: Differential Indicated SCAN CRITERIA MET
[2020-06-13 11:31] LABS: Anion Gap 4 (5-15); BUN 15 mg/dL (7-18); BUN/Creat Ratio 18.1 RATIO (10-20); Calcium,Total 9.1 mg/dL (8.5-10.1); Chloride 105 mmol/L (98-107); Creatinine, Serum 0.83 mg/dL (0.70-1.30); EST Glomerular Filtration Rate 97 mL/min (>60); Est Glom Filt Rate - Afr Amer 117 mL/min (>60); Estimated Creatinine Clearance 76.69 ml/min; Glucose 109 mg/dL (74-106); Sodium Level 138 mmol/L (136-145)
[2020-06-13 11:39] VITALS: BP 151/75; PULSE 83; RESP 18; TEMP 37.1; O2SAT 99
[2020-06-13 12:08] VITALS: BP 155/79; PULSE 79; RESP 18; TEMP 37.1; O2SAT 98
[2020-06-13 12:35] VITALS: BP 179/70; PULSE 84; RESP 18; O2SAT 96
== END 2020-06-13 12:36 | disposition home or self-care (01) ==
PROVIDERS: Emergency Provider Emergency Medicine; PCP Family Medicine
DX: U07.1 COVID-19 (principal); I10 Essential (primary) hypertension; E78.5 Hyperlipidemia, unspecified; G47.33 Obstructive sleep apnea (adult) (pediatric); Z79.899 Other long term (current) drug therapy; Z87.891 Personal history of nicotine dependence
CPT/HCPCS: 36415; 80048; 85025; 87635; 96361; 96374; 99285; J7030; A4216; J2405; U0003

== ENCOUNTER → 2023-03-26 | Outpatient (CLI) | payer MEDICARE, BC, SELFPAY ==
--- NOTE | 2023-03-26 07:30 | HIP_PTH ---
PATIENT: JOELLE MARIEE LOC: [facility] U#:[id number] AGE/SX: 77/M ROOM: RE03/26/[address]: Dr. Bob Byrd DO : 1945 BED: DIS: 03/26/2023 SPEC #: [id number] RECD: 03/27/23 10:29 STATUS: TRINA REJem #: [id number] CHIRAG: 03/26/23 07:[address]: Bob Byrd DEPT: SURGICAL PATHOLOGY RECD BY: Lisa Burns ENTERED: 03/27/23 10:29 SP TYPE: TOTAL HIP OTHR DR: Dr. Deuce Coughlin III, MD [facility] Tissues: Hip, NOS Procedures: Decalcification bone/plaque Surgery Specimen Level IV HEADER OPERATION: Right total hip arthroplasty with posterior approach PRE-OP DIAGNOSIS: Unilateral primary osteoarthritis right hip TISSUE SUBMITTED: Right hip bone and tissue MICROSCOPIC DIAGNOSIS Right hip bone and tissue, total hip replacement/resection: Femoral head with degenerative osteoarthritic changes. Fragments of fibroadipose tissue and fibroconnective tissue. NEFTALI:monico 04/01/2023 MICROSCOPIC DESCRIPTION Slides are reviewed. GROSS DESCRIPTION Received is one container labeled with the patient's name and designated bone and soft tissue right hip. The specimen consists of a sterling femoral head with portion of femoral neck. The femoral head measures 4.5 x 6.5 x 4.0 cm and the femoral neck measures 1.5 cm in length. The articular surface displays prominent osteophyte formation, eburnation and bone erosion. Also present in the specimen container are multiple irregular fragments of bone reamings and pink-yellow soft tissue measuring in aggregate 8.0 x 8.0 x 2.0 cm. Pediatric Clinical Dietician sections are submitted in two cassettes as follows: 1 - soft tissue, 2??bone after decalcification. / Trini 03/27/23 TC:5 CPT: 94103, 86797
== END | disposition home or self-care (01) ==
PROVIDERS: PCP Family Medicine; Referring Provider Orthopaedic Surgery; Visit Provider Orthopaedic Surgery
DX: M16.11 Unilateral primary osteoarthritis, right hip (principal)
CPT/HCPCS: 88305; 88311

== ENCOUNTER → 2023-07-07 | Outpatient (CLI) | payer MEDICARE, BC, SELFPAY | END | disposition home or self-care (01) | LOC: SL 20:00 | PROVIDERS: PCP Family Medicine; Referring Provider Family Medicine; Visit Provider Family Medicine | DX: R06.83 Snoring (principal); G47.10 Hypersomnia, unspecified; I10 Essential (primary) hypertension | CPT/HCPCS: 95810 ==

== ENCOUNTER → 2023-09-01 | Outpatient (CLI) | payer MEDICARE, BC, SELFPAY ==
--- OUTSIDE RECORDS SUMMARY | 2023-09-01 20:07 | XMS RPT_ITS | CCD ---
Author Name Unknown Address [address] [place] [address] Organization [facility] Care Team Providers Care Cold Saw Operator Name Role Phone Lila Kramer MD Primary Care Provider [phone] WILLIAMS, LILA A Primary Care Unavailable Maria T Monroe Attending Unavailable WILLIAMS, LILA A Referring Unavailable WILLIAMS, LILA A Primary Care Unavailable JASPAL MCDONOUGH Attending Unavailable Maria T Monroe Referring Unavailable WILLIAMS, LILA A Primary Care Unavailable KAREN BLISS Attending Unavailable WILLIAMS, LILA A Primary Care Unavailable KAREN BLISS Attending Unavailable WILLIAMS, LILA A Primary Care Unavailable WILLIAMS, LILA A Primary Care Unavailable WILLIAMS, LILA A Primary Care Unavailable SAVANNAH THURSTON Attending Unavailable NEIL SAHU Referring Unavailable WILLIAMS, LILA A Primary Care Unavailable WILLIAMS, LILA A Referring Unavailable WILLIAMS, LILA A Primary Care Unavailable WILLIAMS, LILA A Attending Unavailable KAREN BLISS Referring Unavailable WILLIAMS, LILA A Primary Care Unavailable KAREN BLISS Referring Unavailable WILLIAMS, LILA A Primary Care Unavailable WILLIAMS, LILA A Primary Care Unavailable NEIL SAHU Admitting Unavailable NEIL SAHU Attending Unavailable WILLIAMS, LILA A Referring Unavailable WILLIAMS, LILA A Primary Care Unavailable WILLIAMS, LILA A Attending Unavailable WILLIAMS, LILA A Primary Care Unavailable WILLIAMS, LILA A Attending Unavailable WILLIAMS, LILA A Primary Care Unavailable WILLIAMS, LILA A Referring Unavailable WILLIAMS, LILA A Primary Care Unavailable WILLIAMS, LILA A Primary Care Unavailable WILLIAMS, LILA A Attending Unavailable WILLIAMS, LILA A Primary Care Unavailable NEIL SAHU Attending Unavailable WILLIAMS, LILA A Primary Care Unavailable Allergies Allergy Classification Reported Allergen(s) Allergy Type Date of Onset Reaction(s) Facility (20 sources) Lisinopril; Translations: [LISINOPRIL] Drug Allergy 11-14-2011 Cough [facility] Work Phone: (20 sources) Simvastatin; Translations: [SIMVASTATIN] Drug Allergy 06-22-2009 Myalgia [facility] Work Phone: (19 sources) Doxycycline; Translations: [DOXYCYCLINE MONOHYDRATE] Drug Allergy 06-09-2022 Other: See Comments [facility] Medications Current Medications Medication Drug Class(es) Dates Sig (Normalized) Sig (Original) amoxicillin 875 mg / clavulanate 125 mg oral tablet (2 sources) Penicillin-class Antibacterial Start: 06-24-2023 End: 06-29-2023 take 1 tablet by mouth twice daily amoxicillin-clavulan ate potassium (AUGMENTIN) 875-125 mg per tablet Indications: Sinobronchitis Take 1 tablet by mouth two times a day for 5 days. 10 tablet 0 06/24/2023 06/29/2023 Active Completed/Discontinued Medications Medication Drug Class(es) Dates Sig (Normalized) Sig (Original) atorvastatin 20 mg oral tablet (20 sources) HMG-CoA Reductase Inhibitor Start: 06-21-2022 take 1 tablet by mouth once daily at bedtime for hyperlipidemia atorvastatin (LIPITOR) 20 mg tablet Take 1 tablet by mouth daily at bedtime. For cholesterol. 90 tablet 1 06/10/2023 Active Problems Active Problems Problem Classification Problem Date Documented Da te Episodic/Chronic Anxiety disorders (20 sources) Chronic anxiety; Translations: [Anxiety disorder, unspecified] Onset: 10-29-2018 Chronic Cardiac dysrhythmias (17 sources) Multiple premature ventricular complexes; Translations: [Ventricular premature depolarization] Onset: 10-11-2022 Chronic Disorders of lipid metabolism (20 sources) Mixed hyperlipidemia; Translations: [Mixed hyperlipidemia] Onset: 07-13-2013 Chronic Essential hypertension (20 sources) Essential hypertension; Translations: [Essential (primary) hypertension] Onset: 09-26-2011 Chronic Genitourinary symptoms and ill-defined conditions (1 source) Dysuria; Translations: [Dysuria] 06-07-2023 Episodic Hyperplasia of prostate (20 sources) Benign prostatic hypertrophy with outflow obstruction; Translations: [Benign prostatic hyperplasia with lower urinary tract symptoms] Onset: 08-08-2006 03-30-2021 Chronic Osteoarthritis (20 sources) Idiopathic osteoarthritis; Translations: [Primary osteoarthritis, unspecified site] Onset: 01-28-2023 Chronic Other connective tissue disease (3 sources) Triggering of digit; Translations: [Trigger finger, left ring finger] 05-15-2023 Episodic Other connective tissue disease (1 source) Trigger finger, left ring finger; Translations: [Trigger ring finger of left hand] Onset: 06-19-2023 Episodic Other lower respiratory disease (1 source) Snoring; Translations: [Snoring] 04-22-2023 Episodic Other male genital disorders (20 sources) Male erectile dysfunction, unspecified; Translations: [Impotence of organic origin] Onset: 03-30-2013 03-30-2021 Chronic Other nervous system disorders (20 sources) Carpal tunnel syndrome of left wrist; Translations: [Carpal tunnel syndrome, left upper limb] 03-30-2021 Chronic Other nutritional; endocrine; and metabolic disorders (20 sources) Obese class I; Translations: [Obesity, unspecified] Onset: 10-04-2019 Chronic Other upper respiratory disease (1 source) Chronic rhinitis; Translations: [Unspecified sinusitis (chronic)] Chronic Other upper respiratory infections (3 sources) Bacterial sinusitis; Translations: [Chronic sinusitis, unspecified] Chronic Residual codes; unclassified (1 source) Hypersomnia; Translations: [Hypersomnia, unspecified] 04-22-2023 Chronic Residual codes; unclassified (1 source) Hypersomnia, unspecified; Translations: [Hypersomnolence] Onset: 04-22-2023 Chronic Past or Other Problems Problem Classification Problem Date Documented Da te Episodic/Chronic Administrative/social admission (18 sources) Advance directive discussed with patient; Translations: [Other specified counseling] Onset: 06-21-2022 06-21-2022 Episodic Cardiac dysrhythmias (4 sources) Palpitations; Translations: [Palpitations] Onset: 10-11-2022 Episodic Diabetes mellitus without complication (20 sources) Hyperglycemia; Translations: [Hyperglycemia, unspecified] Onset: 06-14-2021 Episodic Other aftercare (20 sources) Patient encounter status; Translations: [Other jail (current) drug therapy] Onset: 03-30-2021 Episodic Other aftercare (1 source) Other roasterman (current) drug therapy; Translations: [Medication management] Onset: 03-30-2021 Episodic Other inflammatory condition of skin (20 sources) Pruritus ani; Translations: [Pruritus ani] Onset: 12-27-2010 06-14-2021 Episodic Other lower respiratory disease (1 source) Snoring; Translations: [Snores] Onset: 04-22-2023 Episodic Other male genital disorders (20 sources) Disorder of prostate; Translations: [Disorder of prostate, unspecified] Onset: 03-30-2021 Episodic Other male genital disorders (1 source) Disorder of prostate, unspecified; Translations: [Prostate disorder] Onset: 03-30-2021 Episodic Other screening for suspected conditions (not mental disorders or infectious disease) (2 sources) Encounter for screening for malignant neoplasm of colon; Translations: [Encounter for screening for malignant neoplasm of colon] Onset: 09-19-2022 Episodic Residual codes; unclassified (19 sources) Family history of cancer of colon; Translations: [Family history of malignant neoplasm of digestive organs] Onset: 06-21-2022 06-21-2022 Episodic Residual codes; unclassified (17 sources) Active living will ; Translations: [Other specified health status] Onset: 06-21-2022 06-21-2022 Episodic Residual codes; unclassified (1 source) Family history of malignant neoplasm of digestive organs; Translations: [Family history of colon cancer] Onset: 06-21-2022 Episodic Screening and history of mental health and substance abuse codes (20 sources) Ex-smoker; Translations: [Personal history of nicotine dependence] Onset: 06-14-2021 06-21-2021 Episodic Spondylosis; intervertebral disc disorders; other back problems (20 sources) Cervical disc disorder with radiculopathy; Translations: [Cervical disc disorder with radiculopathy, unspecified cervical region] Onset: 09-03-2011 03-30-2021 Episodic Results Test Name Value Interpretation Reference Range Facil ity Vital Signs Date Time Vital Sign Value Performing Clinician Faci litstephani 07-27-2023 13:12-0500 Body temperature 98.1 [degF] Jackelyn Pierson APRN.CNP Work Phone: [facility] 07-27-2023 13:12-0500 Body weight 98.88 kg Jackelyn Pierson APRN.CNP Work Phone: [facility] 07-27-2023 13:12-0500 Diastolic blood pressure 70 mm[Hg] Jackelyn Praisler-Wood WHEELABRATOR OPERATOR.NATURAL HISTORY COLLECTIONS CURATOR Work Phone: [facility] 07-27-2023 13:12-0500 Heart rate 108 /min Jackelyn Praisler-Wood WHEELABRATOR OPERATOR.NATURAL HISTORY COLLECTIONS CURATOR Work Phone: [facility] 07-27-2023 13:12-0500 Respiratory rate 16 /min Jackelyn Praisler-Wood WHEELABRATOR OPERATOR.NATURAL HISTORY COLLECTIONS CURATOR Work Phone: [facility] 07-27-2023 13:12-0500 SaO2% (BldA) [Mass fraction] 97 % Jackelyn Praisler-Wood WHEELABRATOR OPERATOR.NATURAL HISTORY COLLECTIONS CURATOR Work Phone: [facility] 07-27-2023 13:12-0500 Systolic blood pressure 142 mm[Hg] Jackelyn Praisler-Wood WHEELABRATOR OPERATOR.NATURAL HISTORY COLLECTIONS CURATOR Work Phone: [facility] 06-24-2023 08:48-0500 Body temperature 99.5 [degF] Jackelyn Praisler-Wood WHEELABRATOR OPERATOR.NATURAL HISTORY COLLECTIONS CURATOR Work Phone: [facility] 06-24-2023 08:48-0500 Body weight 98.43 kg Jackelyn Praisler-Wood WHEELABRATOR OPERATOR.NATURAL HISTORY COLLECTIONS CURATOR Work Phone: [facility] 06-24-2023 08:48-0500 Diastolic blood pressure 84 mm[Hg] Jackelyn Praisler-Wood WHEELABRATOR OPERATOR.NATURAL HISTORY COLLECTIONS CURATOR Work Phone: [facility] 06-24-2023 08:48-0500 Heart rate 91 /min Jackelyn Praisler-Wood WHEELABRATOR OPERATOR.NATURAL HISTORY COLLECTIONS CURATOR Work Phone: [facility] 06-24-2023 08:48-0500 Respiratory rate 18 /min Jackelyn Praisler-Wood WHEELABRATOR OPERATOR.NATURAL HISTORY COLLECTIONS CURATOR Work Phone: [facility] 06-24-2023 08:48-0500 SaO2% (BldA) [Mass fraction] 97 % Jackelyn Praisler-Wood WHEELABRATOR OPERATOR.NATURAL HISTORY COLLECTIONS CURATOR Work Phone: [facility] 06-24-2023 08:48-0500 Systolic blood pressure 157 mm[Hg] Jackelyn Pierson WHEELABRATOR OPERATOR.NATURAL HISTORY COLLECTIONS CURATOR Work Phone: [facility] 06-07-2023 13:39-0400 Body temperature 97.59 [degF] Narda Delcid WHEELABRATOR OPERATOR.NATURAL HISTORY COLLECTIONS CURATOR Work Phone: [facility] 06-07-2023 13:39-0400 Body weight 99.61 kg Narda Delcid WHEELABRATOR OPERATOR.NATURAL HISTORY COLLECTIONS CURATOR Work Phone: [facility] 06-07-2023 13:39-0400 Diastolic blood pressure 88 mm[Hg] Narda Delcid WHEELABRATOR OPERATOR.NATURAL HISTORY COLLECTIONS CURATOR Work Phone: [facility] 06-07-2023 13:39-0400 Heart rate 72 /min Narda Delcid WHEELABRATOR OPERATOR.NATURAL HISTORY COLLECTIONS CURATOR Work Phone: [facility] 06-07-2023 13:39-0400 Respiratory rate 16 /min Narda Delcid WHEELABRATOR OPERATOR.NATURAL HISTORY COLLECTIONS CURATOR Work Phone: [facility] 06-07-2023 13:39-0400 SaO2% (BldA) [Mass fraction] 98 % Narda Delcid WHEELABRATOR OPERATOR.NATURAL HISTORY COLLECTIONS CURATOR Work Phone: [facility] 06-07-2023 13:39-0400 Systolic blood pressure 160 mm[Hg] Narda Delcid WHEELABRATOR OPERATOR.NATURAL HISTORY COLLECTIONS CURATOR Work Phone: [facility] 04-22-2023 11:32-0400 Diastolic blood pressure 62 mm[Hg] Lila Kramer MD Work Phone: [facility] 04-22-2023 11:32-0400 Systolic blood pressure 128 mm[Hg] Lila Kramer MD Work Phone: [facility] 04-22-2023 11:08-0400 Body weight 97.07 kg Lila Kramer MD Work Phone: [facility] 04-22-2023 11:08-0400 Heart rate 77 /min Lila Kramer MD Work Phone: [facility] 04-22-2023 11:08-0400 Respiratory rate 16 /min Lila Kramer MD Work Phone: [facility] 04-22-2023 11:08-0400 SaO2% (BldA) [Mass fraction] 98 % Lila Kramer MD Work Phone: [facility] 03-17-2023 11:13-0400 Body weight 97.07 kg Lila Kramer MD Work Phone: [facility] 03-17-2023 11:13-0400 Diastolic blood pressure 76 mm[Hg] Lila Kramer MD Work Phone: [facility] 03-17-2023 11:13-0400 Heart rate 82 /min Lila Kramer MD Work Phone: [facility] 03-17-2023 11:13-0400 Respiratory rate 16 /min Lila Kramer MD Work Phone: [facility] 03-17-2023 11:13-0400 Systolic blood pressure 128 mm[Hg] Lila Kramer MD Work Phone: [facility] 01-28-2023 08:32-0400 Body weight 96.16 kg Lila Kramer MD Work Phone: [facility] 01-28-2023 08:32-0400 Diastolic blood pressure 76 mm[Hg] Lila Kramer MD Work Phone: [facility] 01-28-2023 08:32-0400 Heart rate 68 /min Lila Kramer MD Work Phone: [facility] 01-28-2023 08:32-0400 Respiratory rate 14 /min Lila Kramer MD Work Phone: [facility] 01-28-2023 08:32-0400 Systolic blood pressure 130 mm[Hg] Lila Kramer MD Work Phone: [facility] 10-11-2022 12:41-0500 Body weight 95.25 kg Karen Bliss PA-C Work Phone: [facility] 10-11-2022 12:41-0500 Diastolic blood pressure 78 mm[Hg] Karen Bliss PA-C Work Phone: [facility] 10-11-2022 12:41-0500 Heart rate 83 /min Karen Bliss PA-C Work Phone: [facility] 10-11-2022 12:41-0500 Respiratory rate 16 /min Karen Bliss PA-C Work Phone: [facility] 10-11-2022 12:41-0500 SaO2% (BldA) [Mass fraction] 97 % Karen Bliss PA-C Work Phone: [facility] 10-11-2022 12:41-0500 Systolic blood pressure 136 mm[Hg] Karen Bliss PA-C Work Phone: [facility] 10-10-2022 09:49-0500 Diastolic blood pressure 75 mm[Hg] Jaspal Mcdonough MD Work Phone: [facility] 10-10-2022 09:49-0500 Heart rate 71 /min Jaspal Mcdonough MD Work Phone: [facility] 10-10-2022 09:49-0500 Respiratory rate 16 /min Jsapal Mcdonough MD Work Phone: [facility] 10-10-2022 09:49-0500 SaO2% (BldA) [Mass fraction] 97 % Jaspal Mcdonough MD Work Phone: [facility] 10-10-2022 09:49-0500 Systolic blood pressure 135 mm[Hg] Jaspal Mcdonough MD Work Phone: [facility] 10-10-2022 08:20-0500 Body temperature 98.29 [degF] Jaspal Mcdonough MD Work Phone: [facility] 09-19-2022 10:32-0500 Body height 174 cm Maria T Monroe PA-C Work Phone: [facility] 09-19-2022 10:32-0500 Body temperature 97.81 [degF] Maria T Mabel PA-C Work Phone: [facility] 09-19-2022 10:32-0500 Body weight 96.25 kg Maria T Conetoe PA-C Work Phone: [facility] 09-19-2022 10:32-0500 Diastolic blood pressure 72 mm[Hg] Maria T Conetoe PA-C Work Phone: [facility] 09-19-2022 10:32-0500 Heart rate 92 /min Maria T Mabel PA-C Work Phone: [facility] 09-19-2022 10:32-0500 SaO2% (BldA) [Mass fraction] 99 % Maria T Conetoe PA-C Work Phone: [facility] 09-19-2022 10:32-0500 Systolic blood pressure 140 mm[Hg] Maria Tlexi Rameshf PA-C Work Phone: [facility] 07-30-2022 10:44-0500 Diastolic blood pressure 73 mm[Hg] Karen Bliss PA-C Work Phone: [facility] 07-30-2022 10:44-0500 Heart rate 67 /min Karen Bliss PA-C Work Phone: [facility] 07-30-2022 10:44-0500 Systolic blood pressure 139 mm[Hg] Karen Bliss PA-C Work Phone: [facility] 07-30-2022 10:14-0500 Body temperature 96.91 [degF] Karen Bliss PA-C Work Phone: [facility] 07-30-2022 10:14-0500 Body weight 96.16 kg Karen Bliss PA-C Work Phone: [facility] 07-30-2022 10:14-0500 Respiratory rate 16 /min Karen Bliss PA-C Work Phone: [facility] 06-09-2022 09:09-0500 Body temperature 98.01 [degF] Kasey Matt PA-C Work Phone: [facility] 06-09-2022 09:09-0500 Body weight 93.44 kg Kasey Athy PA-C Work Phone: [facility] 06-09-2022 09:09-0500 Diastolic blood pressure 78 mm[Hg] Kasey Athy PA-C Work Phone: [facility] 06-09-2022 09:09-0500 Heart rate 86 /min Kasey Athy PA-C Work Phone: [facility] 06-09-2022 09:09-0500 Respiratory rate 22 /min Kasey Athy PA-C Work Phone: [facility] 06-09-2022 09:09-0500 SaO2% (BldA) [Mass fraction] 99 % Kasey Athy PA-C Work Phone: [facility] 06-09-2022 09:09-0500 Systolic blood pressure 130 mm[Hg] Kasey Athy PA-C Work Phone: [facility] 05-30-2022 11:30-0400 Body temperature 99.5 [degF] Narda Delcid WHEELABRATOR OPERATOR.NATURAL HISTORY COLLECTIONS CURATOR Work Phone: [facility] 05-30-2022 11:30-0400 Body weight 94.89 kg Narda Delcid WHEELABRATOR OPERATOR.NATURAL HISTORY COLLECTIONS CURATOR Work Phone: [facility] 05-30-2022 11:30-0400 Diastolic blood pressure 78 mm[Hg] Narda Delcid WHEELABRATOR OPERATOR.NATURAL HISTORY COLLECTIONS CURATOR Work Phone: [facility] 05-30-2022 11:30-0400 Heart rate 73 /min Narda Delcid WHEELABRATOR OPERATOR.NATURAL HISTORY COLLECTIONS CURATOR Work Phone: [facility] 05-30-2022 11:30-0400 Respiratory rate 21 /min Narda Delcid WHEELABRATOR OPERATOR.NATURAL HISTORY COLLECTIONS CURATOR Work Phone: [facility] 05-30-2022 11:30-0400 SaO2% (BldA) [Mass fraction] 98 % Narda Delcid WHEELABRATOR OPERATOR.NATURAL HISTORY COLLECTIONS CURATOR Work Phone: [facility] 05-30-2022 11:30-0400 Systolic blood pressure 168 mm[Hg] Narda Farhana ZARCONATURAL HISTORY COLLECTIONS CURATOR Work Phone: [facility] 12-12-2021 10:50-0400 Diastolic blood pressure 80 mm[Hg] Lila Kramer MD Work Phone: [facility] 12-12-2021 10:50-0400 Systolic blood pressure 132 mm[Hg] Lila Kramer MD Work Phone: [facility] 12-12-2021 10:40-0400 Body weight 95.25 kg Lila Kramer MD Work Phone: [facility] 12-12-2021 10:40-0400 Heart rate 60 /min Lila Kramer MD Work Phone: [facility] 12-12-2021 10:40-0400 Respiratory rate 16 /min Lila Kramer MD Work Phone: [facility] Encounters Encounter Date Encounter Type Care Provider Facility Start: 07-27-2023 End: 07-27-2023 ambulatory LILA KRAMER Facility:[facility] Start: 07-27-2023 End: 07-27-2023 Patient encounter procedure Jackelyn Pierson APRN.NATURAL HISTORY COLLECTIONS CURATOR Work Phone: [facility] Procedures Date Procedure Procedure Detail Performing Clinician Start: 06-07-2023 Urnls dip stick/tabl et rgnt auto w/o microscopy Kasey R Vernell PERKINS Work Phone: Start: 02-25-2023 CBC W/DIFF/PLT ([facility]) [facility] Provider Start: 10-11-2022 Ecg routine ecg w/le ast 12 lds i&r only [facility] Provider Start: 10-10-2022 Colonoscopy flx dx w /collj spec when pfrmd Maria T Monroe PA-C Work Phone: Start: 10-10-2022 Colonoscopy Lila godfrey MD Work Phone: Start: 07-08-2017 Colonoscopy Lila godfrey MD Work Phone: Plan of Treatment Date Care Activity Detail Author Start: 10-10-2029 Urine microalbumin profile [facility] Start: 10-11-2027 Colonoscopy COLONOSCOPY [facility] Start: 10-11-2027 COLORECTAL CANCER SCREENING COLORECTAL CANCER SCREENING [facility] Start: 10-11-2027 Screening for malign ant neoplasm of colon [facility] Start: 06-19-2027 LIPID SCREEN LIPID SCREEN [facility] Start: 12-12-2026 LIPID SCREEN LIPID SCREEN [facility] Start: 06-14-2026 LIPID SCREEN LIPID SCREEN [facility] Start: 06-09-2026 Diabetes Screening Diabetes Screenin g [facility] Start: 03-17-2026 DIABET[facility]CREEN [facility] Start: 03-17-2026 Diabetes Screening Diabetes Screenin g [facility] Start: 06-19-2025 DIABETES SCREEN DIABETES SCREEN [facility] Start: 12-12-2024 DIABETES SCREEN DIABETES SCREEN [facility] Start: 06-14-2024 DIABETES SCREEN DIABETES SCREEN [facility] Start: 06-10-2024 Annual PCP Team Supervisor Doping slime Disease Visit Annual PCP Team Chronic Disease Visit [facility] Start: 06-10-2024 Covid-19 Vaccine ( season) Covid-19 Vaccine ( season) [facility] Immunizations Immunization Date Immunization Notes Care Provider Edgar moffett 06-10-2023 influenza (HD-IIV4) vaccine, age 65+ yr, high dose, quadrivalent, PF (FLUZONE HIGH-DOSE) Jackelyn Pierson APRN.CNP Work Phone: [facility] 06-21-2022 influenza, high-dose , quadrivalent vaccine (FLUZONE HIGH DOSE QUADRIVALENT) Karen Bliss PA-C Work Phone: [facility] 06-21-2022 pneumococcal (PCV20) vaccine, 20 valent (PREVNAR 20) Karen Bliss PA-C Work Phone: [facility] 06-21-2022 influenza virus vacc ine, unspecified formulation Lila Kramer MD Work Phone: [facility] 06-14-2021 influenza, high-dose , quadrivalent vaccine (FLUZONE HIGH DOSE QUADRIVALENT) Lila Kramer MD Work Phone: [facility] 05-12-2020 influenza, high-dose , quadrivalent vaccine (FLUZONE HIGH DOSE QUADRIVALENT) Lila Kramer MD Work Phone: [facility] Work Phone: 01-13-2020 zoster vaccine recombinant Lila Kramer MD Work Phone: [facility] Work Phone: 10-11-2019 tetanus toxoid, redu maria elena diphtheria toxoid, and acellular pertussis vaccine, adsorbed Lila Kramer MD Work Phone: [facility] Work Phone: 10-11-2019 zoster vaccine recombinant Lila Kramer MD Work Phone: [facility] Work Phone: 06-16-2019 influenza, high dose seasonal, preservative-free Karen Bliss PA-C Work Phone: [facility] 05-16-2018 influenza, high dose seasonal, preservative-free Lila Kramer MD Work Phone: [facility] 07-14-2017 influenza, high dose seasonal, preservative-free Lila Kramer MD Work Phone: [facility] Work Phone: 09-15-2014 pneumococcal conjuga te vaccine, 13 valent Lila Kramer MD Work Phone: [facility] Work Phone: 09-15-2014 pneumococcal polysaccharide vaccine, 23 valent Lila Kramer MD Work Phone: [facility] 05-18-2012 influenza virus vacc ine, unspecified formulation Lila Kramer MD Work Phone: [facility] 01-17-2012 pneumococcal polysaccharide vaccine, 23 valent Lila Kramer MD Work Phone: [facility] 06-02-2009 influenza virus vacc ine, unspecified formulation Lila Kramer MD Work Phone: [facility] Work Phone: 06-08-2008 influenza virus vacc ine, unspecified formulation Lila Kramer MD Work Phone: [facility] Work Phone: 06-08-2007 influenza virus vacc ine, unspecified formulation Lila Kramer MD Work Phone: [facility] Work Phone: 08-08-2006 tetanus toxoid, redu maria elena diphtheria toxoid, and acellular pertussis vaccine, adsorbed Lila Kramer MD Work Phone: [facility] Work Phone: 06-03-2006 influenza virus vacc ine, unspecified formulation Lila Kramer MD Work Phone: [facility] Work Phone: 06-20-1989 diphtheria and tetan us toxoids, adsorbed for pediatric use Lila Kramer MD Work Phone: [facility] Work Phone: Payers Date Payer Category Payer Medicare [id number] 2016 Unknown [employer] SUPPLEMENT [id number] 2016-Present [phone] [address] [place] [address] Indemnity [id number] 2016 Unknown [employer] SUPPLEMENT [id number] 2016-Present [phone] [id number] Indemnity [id number] 2011 Medicare MEDICARE MEDICAR E A AND B [id number] 2011-Present [phone] [address] [address] [place] [address] Medicare [id number] 2011 Medicare MEDICARE MEDICAR E A AND B [id number] 2011-Present [phone] [place] [address] Medicare [id number] 2011 Medicare [id number] Social History Date Type Detail Facility Start: 05-30-2022 End: 10-10-2022 Tobacco smoking status NHIS Ex-smoker [facility] Work Phone: Start: 12-12-2021 End: 07-27-2023 Alcohol intake Current non-drinker of alcohol (finding) [facility] Start: 10-04-2019 End: 01-25-2023 History SDOH Alcohol Frequency 1 [facility] Start: 10-04-2019 End: 01-25-2023 History SDOH Alcohol Std Drinks 98 [facility] Start: 10-04-2019 End: 01-25-2023 History SDOH Social Connections Phone 4 [facility] Start: 10-04-2019 End: 01-25-2023 History SDOH Social Connections Faith 3 [facility] Start: 10-04-2019 End: 01-25-2023 History SDOH Financial 5 [facility] Start: 10-04-2019 End: 01-25-2023 History SDOH Transport Med 2 [facility] Start: 2019 Education 15 [facility] Start: 05-18-2012 End: 05-30-2022 Tobacco Comment quit 1970 s [facility] Start: 1945 Sex Assigned At Male [facility] Start: 12-02-2021 End: 06-09-2022 Exposure to SARS-CoV-2 (event) Not sure [facility] History of tobacco use Current smoker [facility] Start: 05-30-2022 End: 10-10-2022 Tobacco use and exposure Smokeless tobacco non-user [facility] History of tobacco use Cigarette Smoker C [facility] Start: 01-25-2023 History SDOH Alcohol Std Drinks 0 [facility] Start: 01-25-2023 End: 01-28-2023 History of Social function [facility] Start: 04-17-2020 End: 06-27-2023 Social connection and isolation panel [facility] Do you belong to any clubs or organizations such as taoist groups, unions, fraternal or athletic groups, or school groups? No [facility] How often do you att end meetings of the clubs or organizations you belong to? Patient refused [facility] Are you now , , , , never or living with a partner? [facility] How often to you hav e a drink containing alcohol? Never [facility] Do you feel stress - tense, restless, nervous, or anxious, or unable to sleep at night because your mind is troubled all the time - these days [OSQ] Not at all [facility] (I/We) worried wheth er (my/our) food would run out before (I/we) got money to buy more. Never true [facility] Start: 04-17-2020 Gender identity Identifies as male gender (finding) [facility] Do you belong to any clubs or organizations such as taoist groups, [employer], [employer] or athletic groups, or school groups? Yes [facility] Clinical Notes 09-01-2017 to 07-27-2023 Jackelyn Pierson APRN.NATURAL HISTORY COLLECTIONS CURATOR - 07/27/2023 1:25 PM ESTPatient InstructionsSavannah Thurston PA-C - 06/30/2023 8:45 AM Andra Bruce Ma - 06/30/2023 8:23 AM ESTPatient Instructions Note Date & Type Note Facility 07-27-2023 Note HNO ID: [id number] Author: Jackelyn Pierson APRN.NATURAL HISTORY COLLECTIONS CURATOR Service: ? Author Type: Nurse Practitioner Type: Progress Notes Filed: 07/27/2023 1:27 PM Note Text: Subjective Nasal Congestion Associated symptoms include congestion and headaches. Pertinent negatives include no chills, coughing, ear pain, shortness of breath or sore throat. Amado Hart is a 77 year old male who presents with 6 days of nasal congestion and drainage, sinus pressure, and headache. He has been taking sudafed and advil at home. He has not had a fever. No known sick contacts. Review of Systems Constitutional: Negative for chills and fever. HENT: Positive for congestion and sinus pain. Negative for ear pain and sore throat. Respiratory: Negative for cough and shortness of breath. Cardiovascular: Negative. Neurological: Positive for headaches. BP 142/70 Pulse 108 Temp 36.7 ?C (98.1 ?F) Resp 16 Wt 98.9 kg (218 lb) SpO2 97% BMI 33.89 kg/m? 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 Judson LAMBERT (erectile dysfunction) 03/30/2013 Elevated blood sugar 06/14/2021 Ex-smoker 06/14/2021 Family history of colon cancer 06/21/2022 Family history of malignant neoplasm lung ca Hyperlipidemia, mixed 07/13/2013 Hypertension, essential 09/26/[address] 06/21/2022 DPA: Bibiana () Medicare annual wellness visit, subsequent 06/14/2021 Medicare Part B: 2011 Last Done: 06/14/2021 OA (osteoarthritis) 01/28/2023 Obesity, Class I, BMI 30-34.9 10/04/2019 Pruritus ani 12/27/2010 PVC (premature ventricular contraction) 10/11/2022 PAST SURGICAL HISTORY Procedure Laterality Date COLONOSCOPY 10/10/2022 repeat in 5 years COLONOSCOPY FLX DX W/COLLJ SPEC WHEN PFRMD 2001 Colonoscopy COLONOSCOPY FLX DX W/COLLJ SPEC WHEN PFRMD 10/28/2006 Colonoscopy-repeat in -2011 COLONOSCOPY FLX DX W/COLLJ SPEC WHEN PFRMD 02/25/2012 Colonoscopy COLONOSCOPY FLX DX W/COLLJ SPEC WHEN PFRMD 07/08/2017 Colonoscopy ESOPHAGOGASTRODUODENOSCOPY TRANSORAL DIAGNOSTIC 10/28/2006 EGD INCISE FINGER TENDON SHEATH Left 06/19/2023 Left ring trigger finger release NEUROPLASTY AND/TRANSPOS MEDIAN NRV CARPAL TUNNE Bilateral 04/20/2020 Bilateral carpal tunnel release TONSILLECTOMY HX ALLERGIES Doxycycline Monohydrate, Lisinopril, and Zocor [Simvastatin] MEDICATIONS losartan (COZAAR) 100 mg tablet Take 1 tablet by mouth once daily. atorvastatin (LIPITOR) 20 mg tablet Take 1 tablet by mouth daily at bedtime. For cholesterol. docosahexaenoic acid/epa (FISH OIL ORAL) Take by mouth once daily. EFFEXOR 25 MG TAB Take one(1) tablet twice daily. azithromycin (ZITHROMAX) 250 mg tablet Take 2 tablets by mouth once daily for 1 day, THEN 1 tablet once daily for 4 days. FAMILY HISTORY Problem Relation Age of Onset Cancer Mother lung Cancer Father COLON None Sister None Brother Diabetes Brother Social History Tobacco Use Smoking status: Former Types: Cigarettes Smokeless tobacco: Never Tobacco comments: quit 1969 Vaping Use Vaping Use: Never used Substance Use Topics Alcohol use: No Drug use: No Objective Physical Exam Vitals and nursing note reviewed. Constitutional: General: He is not in acute distress. Appearance: Normal appearance. He is not ill-appearing. HENT: Right Ear: Tympanic membrane, ear canal and external ear normal. Left Ear: Tympanic membrane, ear canal and external ear normal. Nose: Nasal tenderness, mucosal edema, congestion and rhinorrhea present. Mouth/Throat: Pharynx: Uvula midline. No oropharyngeal exudate or posterior oropharyngeal erythema. Cardiovascular: Rate and Rhythm: Normal rate and regular rhythm. Heart sounds: Normal heart sounds. Pulmonary: Effort: Pulmonary effort is normal. No respiratory distress. Breath sounds: Normal breath sounds. No wheezing or rales. Musculoskeletal: Cervical back: Neck supple. Skin: General: Skin is warm and dry. Findings: No erythema or rash. Neurological: Mental Status: He is alert. ASSESSMENT/PLAN: 1. Bacterial sinusitis - ICD9: 473.9, 041.9, ICD10: J32.9, B96.89 - Will begin treatment with as per antibiotic as written, see orders - Supportive care with plenty of fluids, rest, and analgesia prn. - AZITHROMYCIN 250 MG TABLET - Follow-up with your PCP in 3-5 days if symptoms have not improved or sooner if symptoms worsen - Discussed red flags and need for immediate medical evaluation if any occur. - Discussed supportive care treatment with fluids, rest and analgesia. - Discussed expected course o (more content not included)... [facility] 07-27-2023 History of Presen t illness Narrative Subjective Nasal Congestion Associated symptoms include congestion and headaches. Pertinent negatives include no chills, coughing, ear pain, shortness of breath or sore throat. Amado Hart is a 77 year old male who presents with 6 days of nasal congestion and drainage, sinus pressure, and headache. He has been taking sudafed and advil at home. He has not had a fever. No known sick contacts. Review of Systems Constitutional: Negative for chills and fever. HENT: Positive for congestion and sinus pain. Negative for ear pain and sore throat. Respiratory: Negative for cough and shortness of breath. Cardiovascular: Negative. Neurological: Positive for headaches. 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 Judson LAMBERT (erectile dysfunction) 03/30/2013 Elevated blood sugar 06/14/2021 Ex-smoker 06/14/2021 Family history of colon cancer 06/21/2022 Family history of malignant neoplasm lung ca Hyperlipidemia, mixed 07/13/2013 Hypertension, essential 09/26/[address] 06/21/2022 DPA: Bibiana () Medicare annual wellness visit, subsequent 06/14/2021 Medicare Part B: 2011 Last Done: 06/14/2021 OA (osteoarthritis) 01/28/2023 Obesity, Class I, BMI 30-34.9 10/04/2019 Pruritus ani 12/27/2010 PVC (premature ventricular contraction) 10/11/2022 PAST SURGICAL HISTORY Procedure Laterality Date COLONOSCOPY 10/10/2022 repeat in 5 years COLONOSCOPY FLX DX W/COLLJ SPEC WHEN PFRMD 2001 Colonoscopy COLONOSCOPY FLX DX W/COLLJ SPEC WHEN PFRMD 10/28/2006 Colonoscopy-repeat in -2011 COLONOSCOPY FLX DX W/COLLJ SPEC WHEN PFRMD 02/25/2012 Colonoscopy COLONOSCOPY FLX DX W/COLLJ SPEC WHEN PFRMD 07/08/2017 Colonoscopy ESOPHAGOGASTRODUODENOSCOPY TRANSORAL DIAGNOSTIC 10/28/2006 EGD INCISE FINGER TENDON SHEATH Left 06/19/2023 Left ring trigger finger release NEUROPLASTY &/TRANSPOS MEDIAN NRV CARPAL TUNNE Bilateral 04/20/2020 Bilateral carpal tunnel release TONSILLECTOMY HX ALLERGIES Doxycycline Monohydrate, Lisinopril, and Zocor [Simvastatin] MEDICATIONS losartan (COZAAR) 100 mg tablet Take 1 tablet by mouth once daily. atorvastatin (LIPITOR) 20 mg tablet Take 1 tablet by mouth daily at bedtime. For cholesterol. docosahexaenoic acid/epa (FISH OIL ORAL) Take by mouth once daily. EFFEXOR 25 MG TAB Take one(1) tablet twice daily. azithromycin (ZITHROMAX) 250 mg tablet Take 2 tablets by mouth once daily for 1 day, THEN 1 tablet once daily for 4 days. FAMILY HISTORY Problem Relation Age of Onset Cancer Mother lung Cancer Father COLON None Sister None Brother Diabetes Brother Social History Tobacco Use Smoking status: Former Types: Cigarettes Smokeless tobacco: Never Tobacco comments: quit 1969 Vaping Use Vaping Use: Never used Substance Use Topics Alcohol use: No Drug use: No Objective Physical Exam Vitals and nursing note reviewed. Constitutional: General: He is not in acute distress. Appearance: Normal appearance. He is not ill-appearing. HENT: Right Ear: Tympanic membrane, ear canal and external ear normal. Left Ear: Tympanic membrane, ear canal and external ear normal. Nose: Nasal tenderness, mucosal edema, congestion and rhinorrhea present. Mouth/Throat: Pharynx: Uvula midline. No oropharyngeal exudate or posterior oropharyngeal erythema. Cardiovascular: Rate and Rhythm: Normal rate and regular rhythm. Heart sounds: Normal heart sounds. Pulmonary: Effort: Pulmonary effort is normal. No respiratory distress. Breath sounds: Normal breath sounds. No wheezing or rales. Musculoskeletal: Cervical back: Neck supple. Skin: General: Skin is warm and dry. Findings: No erythema or rash. Neurological: Mental Status: He is alert. ASSESSMENT/PLAN: 1. Bacterial sinusitis - ICD9: 473.9, 041.9, ICD10: J32.9, B96.89 - Will begin treatment with as per antibiotic as written, see orders - Supportive care with plenty of fluids, rest, and analgesia prn. - AZITHROMYCIN 250 MG TABLET - Follow-up with your PCP in 3-5 days if symptoms have not improved or sooner if symptoms worsen - Discussed red flags and need for immediate medical evaluation if any occur. - Discussed supportive care treatment with fluids, rest and analgesia. - Discussed expected course of illness Jackelyn Pierson APRN.CNP documented in this encounter [facility] 07-27-2023 Instructions Jackelyn Pierson APRN.CNP - 07/27/2023 1:25 PM EST Images from the original note were not included. ASSESSMENT/PLAN: 1. Bacterial sinusitis - ICD9: 473.9, 041.9, ICD10: J32.9, B96.89 - Will begin treatment with as per antibiotic as written, see orders - Supportive care with plenty of fluids, rest, and analgesia prn. - AZITHROMYCIN 250 MG TABLET - Follow-up with your PCP in 3-5 days if symptoms have not improved or sooner if symptoms worsen - Discussed red flags and need for immediate medical evaluation if any occur. - Discussed supportive care treatment with fluids, rest and analgesia. - Discussed expected course of illness Jackelyn Pierson APRN.CNP Adult Sinusitis Patient Education What is Sinusitis? Sinusitis [yjch-gzu-yvdu-tis] is inflammation of the sinuses or swelling of the lining of the sinus cavity or nose. During an infection the sinuses become blocked with fluid causing swelling of the lining of the sinuses. Symptoms: (viral and bacterial infections) Stuffy nose Runny nose Postnasal drip Fever Toothache Headache Tiredness Cough Sore throat Face and head pressure and or pain Common causes: 98% of sinus infections are viral caused by viruses. Risk Factors of Sinusitis Include: Allergies, air pollution, indoor humidity and outdoor temperature changes, andstructural changes in the nose may contribute to sinus pain, pressure and congestion. When to get help? Temperature greater than 100.4 F Symptoms lasting more than 10 days or worsening symptoms greater than 7-10 days. If you do not improve or worsen after a course of antibiotics, you should be re-examined. Diagnosis and Treatment: Your healthcare provider will ask a number of questions about your symptoms and how long they have occurred. If symptoms of sinusitis persist greater than 10 days, it is possible you have a bacterial sinus infection and an antibiotic is prescribed. If it is viral, antibiotics will not help. You may be instructed to take unpa-ump-aaqykld medications for symptoms. including fever reducers acetaminophen or ibuprofen, nasal saline spray, cough and cold preparations and decongestants as prescribed by the physician, nurse practitioner or physician telecom assistant. Self-Care and Prevention: Rest Fluids for hydration Good hand washing Humidifier Avoid smoking and exposure to second hand smoke Avoid sick contacts documented in this encounter [facility] 06-30-2023 Note HNO ID: [id number] Author: Savannah Thurston PA-C Service: ? Author Type: Physician Irradiated Fuel Handler Type: Progress Notes Filed: 06/30/2023 8:51 AM Note Text: Savannah Thurston PA-C Department of Orthopaedics Orthopaedics [address] [facility] [address] Dept: [phone] Dept June 30, 2023 CHIEF COMPLAINT: Post Op of the Left Ring Finger and 1 week 4 days post op Left ring trigger release. ASSESSMENT: M65.342 Trigger ring finger of left hand (primary encounter diagnosis) SUMMARY/PLAN: Patient presents 1 week and 4 days status post left ring trigger finger release. He is doing very well and denies any pain, though the digit is a bit stiff and he is getting a small click in the finger. We discussed proper hand washing, no soaking of the operative hand. No heavy lifting, pushing or pulling with the operative hand, encourage gentle motion. We discussed scar massage. Follow up as planned. Exam: Incision sites well approximated without erythema or drainage. Patient is able to form a loose composite fist and extend the digit without any locking, there is a subtle clicking noted with flexion and extension. Imaging: Deferred today Mr. Amado Hart was advised as to contrast therapies and/or to take analgesics/anti-inflammatories as needed and all contraindications were reviewed. Supporting Information Below: Medications: Current Outpatient Medications Medication Sig losartan (COZAAR) 100 mg tablet Take 1 tablet by mouth once daily. atorvastatin (LIPITOR) 20 mg tablet Take 1 tablet by mouth daily at bedtime. For cholesterol. docosahexaenoic acid/epa (FISH OIL ORAL) Take by mouth once daily. EFFEXOR 25 MG TAB Take one(1) tablet twice daily. benzonatate (TESSALON PERLE) 100 mg capsule Take 2 capsules by mouth three times a day as needed for up to 10 days. (Patient not taking: Reported on 06/30/2023) No current facility-administered medications for this visit. Allergies: Doxycycline Monohydrate, Lisinopril, and Zocor [Simvastatin] This note was partially generated using [employer] voice recognition system, and there may be some incorrect words, spellings, and punctuation that were not noted in checking the note before saving. Savannah Thurston PA-C [facility] 06-30-2023 Note HNO ID: [id number] Author: Andra Del Cid Ma Service: ? Author Type: ? Type: Progress Notes Filed: 06/30/2023 8:51 AM Note Text: Patient presents with: Left Ring Finger - Post Op 1 week 4 days post op Left ring trigger release AMB ROOMING INTAKE FLOWSHEET DATA Patient denies any pain. Sutures intact. No redness or drainage. [facility] 06-30-2023 History of Presen t illness Narrative Savannah Thurston PA-C Department of Orthopaedics Orthopaedics [address] [facility] [address] Dept: [phone] Dept June 30, 2023 CHIEF COMPLAINT: Post Op of the Left Ring Finger and 1 week 4 days post op Left ring trigger release. ASSESSMENT: M65.342 Trigger ring finger of left hand (primary encounter diagnosis) SUMMARY/PLAN: Patient presents 1 week and 4 days status post left ring trigger finger release. He is doing very well and denies any pain, though the digit is a bit stiff and he is getting a small click in the finger. We discussed proper hand washing, no soaking of the operative hand. No heavy lifting, pushing or pulling with the operative hand, encourage gentle motion. We discussed scar massage. Follow up as planned. Exam: Incision sites well approximated without erythema or drainage. Patient is able to form a loose composite fist and extend the digit without any locking, there is a subtle clicking noted with flexion and extension. Imaging: Deferred today Mr. Amado Hart was advised as to contrast therapies and/or to take analgesics/anti-inflammatories as needed and all contraindications were reviewed. Supporting Information Below: Medications: Current Outpatient Medications Medication Sig losartan (COZAAR) 100 mg tablet Take 1 tablet by mouth once daily. atorvastatin (LIPITOR) 20 mg tablet Take 1 tablet by mouth daily at bedtime. For cholesterol. docosahexaenoic acid/epa (FISH OIL ORAL) Take by mouth once daily. EFFEXOR 25 MG TAB Take one(1) tablet twice daily. benzonatate (TESSALON PERLE) 100 mg capsule Take 2 capsules by mouth three times a day as needed for up to 10 days. (Patient not taking: Reported on 06/30/2023) No current facility-administered medications for this visit. Allergies: Doxycycline Monohydrate, Lisinopril, and Zocor [Simvastatin] This note was partially generated using [employer] voice recognition system, and there may be some incorrect words, spellings, and punctuation that were not noted in checking the note before saving. Savannah Thurston PA-C Patient presents with: Left Ring Finger - Post Op 1 week 4 days post op Left ring trigger release AMB ROOMING INTAKE FLOWSHEET DATA Patient denies any pain. Sutures intact. No redness or drainage. documented in this encounter [facility] 06-24-2023 Note HNO ID: [id number] Author: Jackelyn Pierson APRN.NATURAL HISTORY COLLECTIONS CURATOR Service: ? Author Type: Nurse Practitioner Type: Progress Notes Filed: 06/24/2023 8:59 AM Note Text: Subjective Cough Associated symptoms include sore throat. Pertinent negatives include no chest pain, no chills, no ear pain and no shortness of breath. Amado Hart is a 77 year old male who presents with cough, chest congestion, sinus congestion, sore throat with coughing. He has had his symptoms for one week. He has not had a fever. He has been taking Mucinex at home for symptoms. Review of Systems Constitutional: Negative for chills and fever. HENT: Positive for congestion and sore throat. Negative for ear pain. Respiratory: Positive for cough and sputum production. Negative for shortness of breath. Cardiovascular: Negative for chest pain. BP 157/84 Pulse 91 Temp 37.5 ?C (99.5 ?F) Resp 18 Wt 98.4 kg (217 lb) SpO2 97% BMI 33.73 kg/m? 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 Judson LAMBERT (erectile dysfunction) 03/30/2013 Elevated blood sugar 06/14/2021 Ex-smoker 06/14/2021 Family history of colon cancer 06/21/2022 Family history of malignant neoplasm lung ca Hyperlipidemia, mixed 07/13/2013 Hypertension, essential 09/26/[address] 06/21/2022 DPA: Bibiana () Medicare annual wellness visit, subsequent 06/14/2021 Medicare Part B: 2011 Last Done: 06/14/2021 OA (osteoarthritis) 01/28/2023 Obesity, Class I, BMI 30-34.9 10/04/2019 Pruritus ani 12/27/2010 PVC (premature ventricular contraction) 10/11/2022 PAST SURGICAL HISTORY Procedure Laterality Date COLONOSCOPY 10/10/2022 repeat in 5 years COLONOSCOPY FLX DX W/COLLJ SPEC WHEN PFRMD 2001 Colonoscopy COLONOSCOPY FLX DX W/COLLJ SPEC WHEN PFRMD 10/28/2006 Colonoscopy-repeat in -2011 COLONOSCOPY FLX DX W/COLLJ SPEC WHEN PFRMD 02/25/2012 Colonoscopy COLONOSCOPY FLX DX W/COLLJ SPEC WHEN PFRMD 07/08/2017 Colonoscopy ESOPHAGOGASTRODUODENOSCOPY TRANSORAL DIAGNOSTIC 10/28/2006 EGD NEUROPLASTY AND/TRANSPOS MEDIAN NRV CARPAL TUNNE Bilateral 04/20/2020 Bilateral carpal tunnel release TONSILLECTOMY HX ALLERGIES Doxycycline Monohydrate, Lisinopril, and Zocor [Simvastatin] MEDICATIONS losartan (COZAAR) 100 mg tablet Take 1 tablet by mouth once daily. atorvastatin (LIPITOR) 20 mg tablet Take 1 tablet by mouth daily at bedtime. For cholesterol. docosahexaenoic acid/epa (FISH OIL ORAL) Take by mouth once daily. EFFEXOR 25 MG TAB Take one(1) tablet twice daily. amoxicillin-clavulanate potassium (AUGMENTIN) 875-125 mg per tablet Take 1 tablet by mouth two times a day for 5 days. benzonatate (TESSALON PERLE) 100 mg capsule Take 2 capsules by mouth three times a day as needed for up to 10 days. FAMILY HISTORY Problem Relation Age of Onset Cancer Mother lung Cancer Father COLON None Sister None Brother Diabetes Brother Social History Tobacco Use Smoking status: Former Types: Cigarettes Smokeless tobacco: Never Tobacco comments: quit 1969 Vaping Use Vaping Use: Never used Substance Use Topics Alcohol use: No Drug use: No Objective Physical Exam Vitals and nursing note reviewed. Constitutional: Appearance: Normal appearance. HENT: Right Ear: Tympanic membrane, ear canal and external ear normal. Left Ear: Tympanic membrane, ear canal and external ear normal. Nose: Congestion present. Mouth/Throat: Mouth: Mucous membranes are moist. Pharynx: Oropharynx is clear. Uvula midline. No oropharyngeal exudate or posterior oropharyngeal erythema. Cardiovascular: Rate and Rhythm: Normal rate and regular rhythm. Heart sounds: Normal heart sounds. Pulmonary: Effort: Pulmonary effort is normal. No respiratory distress. Breath sounds: Normal breath sounds. No wheezing or rales. Musculoskeletal: Cervical back: Neck supple. Lymphadenopathy: Cervical: No cervical adenopathy. Skin: General: Skin is warm and dry. Findings: No erythema or rash. Neurological: Mental Status: He is alert. ASSESSMENT/PLAN: 1. Sinobronchitis - ICD9: 473.9, 490, ICD10: J32.9, J40 - Will begin treatment with as per antibiotic as written, see orders - Supportive care with plenty of fluids, rest, and analgesia prn. - AMOXICILLIN 875 MG-POTASSIUM CLAVULANATE 125 MG TABLET - BENZONATATE 100 MG CAPSULE - Follow-up with your PCP in 3-5 days if symptoms have not improved or sooner if symptoms worsen - Discussed red flags and need for immediate medical evaluation if any occur. - Discussed supportive care treatment w (more content not included)... [facility] 06-24-2023 History of Presen t illness Narrative Subjective Cough Associated symptoms include sore throat. Pertinent negatives include no chest pain, no chills, no ear pain and no shortness of breath. Amado Hart is a 77 year old male who presents with cough, chest congestion, sinus congestion, sore throat with coughing. He has had his symptoms for one week. He has not had a fever. He has been taking Mucinex at home for symptoms. Review of Systems Constitutional: Negative for chills and fever. HENT: Positive for congestion and sore throat. Negative for ear pain. Respiratory: Positive for cough and sputum production. Negative for shortness of breath. Cardiovascular: Negative for chest pain. 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 Roper ED (erectile dysfunction) 03/30/2013 Elevated blood sugar 06/14/2021 Ex-smoker 06/14/2021 Family history of colon cancer 06/21/2022 Family history of malignant neoplasm lung ca Hyperlipidemia, mixed 07/13/2013 Hypertension, essential 09/26/[address] 06/21/2022 DPA: Bibiana () Medicare annual wellness visit, subsequent 06/14/2021 Medicare Part B: 2011 Last Done: 06/14/2021 OA (osteoarthritis) 01/28/2023 Obesity, Class I, BMI 30-34.9 10/04/2019 Pruritus ani 12/27/2010 PVC (premature ventricular contraction) 10/11/2022 PAST SURGICAL HISTORY Procedure Laterality Date COLONOSCOPY 10/10/2022 repeat in 5 years COLONOSCOPY FLX DX W/COLLJ SPEC WHEN PFRMD 2001 Colonoscopy COLONOSCOPY FLX DX W/COLLJ SPEC WHEN PFRMD 10/28/2006 Colonoscopy-repeat in -2011 COLONOSCOPY FLX DX W/COLLJ SPEC WHEN PFRMD 02/25/2012 Colonoscopy COLONOSCOPY FLX DX W/COLLJ SPEC WHEN PFRMD 07/08/2017 Colonoscopy ESOPHAGOGASTRODUODENOSCOPY TRANSORAL DIAGNOSTIC 10/28/2006 EGD NEUROPLASTY &/TRANSPOS MEDIAN NRV CARPAL TUNNE Bilateral 04/20/2020 Bilateral carpal tunnel release TONSILLECTOMY HX ALLERGIES Doxycycline Monohydrate, Lisinopril, and Zocor [Simvastatin] MEDICATIONS losartan (COZAAR) 100 mg tablet Take 1 tablet by mouth once daily. atorvastatin (LIPITOR) 20 mg tablet Take 1 tablet by mouth daily at bedtime. For cholesterol. docosahexaenoic acid/epa (FISH OIL ORAL) Take by mouth once daily. EFFEXOR 25 MG TAB Take one(1) tablet twice daily. amoxicillin-clavulanate potassium (AUGMENTIN) 875-125 mg per tablet Take 1 tablet by mouth two times a day for 5 days. benzonatate (TESSALON PERLE) 100 mg capsule Take 2 capsules by mouth three times a day as needed for up to 10 days. FAMILY HISTORY Problem Relation Age of Onset Cancer Mother lung Cancer Father COLON None Sister None Brother Diabetes Brother Social History Tobacco Use Smoking status: Former Types: Cigarettes Smokeless tobacco: Never Tobacco comments: quit 1969 Vaping Use Vaping Use: Never used Substance Use Topics Alcohol use: No Drug use: No Objective Physical Exam Vitals and nursing note reviewed. Constitutional: Appearance: Normal appearance. HENT: Right Ear: Tympanic membrane, ear canal and external ear normal. Left Ear: Tympanic membrane, ear canal and external ear normal. Nose: Congestion present. Mouth/Throat: Mouth: Mucous membranes are moist. Pharynx: Oropharynx is clear. Uvula midline. No oropharyngeal exudate or posterior oropharyngeal erythema. Cardiovascular: Rate and Rhythm: Normal rate and regular rhythm. Heart sounds: Normal heart sounds. Pulmonary: Effort: Pulmonary effort is normal. No respiratory distress. Breath sounds: Normal breath sounds. No wheezing or rales. Musculoskeletal: Cervical back: Neck supple. Lymphadenopathy: Cervical: No cervical adenopathy. Skin: General: Skin is warm and dry. Findings: No erythema or rash. Neurological: Mental Status: He is alert. ASSESSMENT/PLAN: 1. Sinobronchitis - ICD9: 473.9, 490, ICD10: J32.9, J40 - Will begin treatment with as per antibiotic as written, see orders - Supportive care with plenty of fluids, rest, and analgesia prn. - AMOXICILLIN 875 MG-POTASSIUM CLAVULANATE 125 MG TABLET - BENZONATATE 100 MG CAPSULE - Follow-up with your PCP in 3-5 days if symptoms have not improved or sooner if symptoms worsen - Discussed red flags and need for immediate medical evaluation if any occur. - Discussed supportive care treatment with fluids, rest and analgesia. - Discussed expected course of illness Jackelyn Pierson APRN.CNP documented in this encounter [facility] 06-24-2023 Instructions Jackelyn Pierson APRN.CNP - 06/24/2023 8:56 AM EST ASSESSMENT/PLAN: 1. Sinobronchitis - ICD9: 473.9, 490, ICD10: J32.9, J40 - Will begin treatment with as per antibiotic as written, see orders - Supportive care with plenty of fluids, rest, and analgesia prn. - AMOXICILLIN 875 MG-POTASSIUM CLAVULANATE 125 MG TABLET - BENZONATATE 100 MG CAPSULE - Follow-up with your PCP in 3-5 days if symptoms have not improved or sooner if symptoms worsen - Discussed red flags and need for immediate medical evaluation if any occur. - Discussed supportive care treatment with fluids, rest and analgesia. - Discussed expected course of illness Jackelyn Pierson APRN.CNP ACUTE BRONCHITIS: You have acute bronchitis. This means the airway passages in your lungs are inflamed. Bronchitis may be caused by viruses or bacteria. Inhaling cigarette smoke will always make it worse. Exposure to irritating chemicals or second hand smoke as well as allergies can contribute to bronchitis. Repeat episodes of bronchitis may cause lifelong lung problems. Acute bronchitis is usually treated with rest, fluids, cough medicine, and possibly antibiotics or inhaled medicine to open up the small airways. It is very important that you avoid smoke and drink increased amounts of fluids. A cool air vaporizer can help thin bronchial secretions. This makes it easier to cough and clear your chest. If you are a cigarette smoker, consider using nicotine gum or skin patches to help you withdraw. Recovery from bronchitis is often slow, but you should start feeling better after 2-3 days of treatment. Please call your doctor or return here if you have any of the following symptoms: Increased fever, chills, or chest pain. Severe shortness of breath or bloody sputum. Do not improve after 3 days of proper treatment. documented in this encounter [facility] 06-10-2023 Note HNO ID: [id number] Author: Lila Kramer MD Service: ? 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 Carpal tunnel syndrome of left wrist Cervical disc disorder with radiculopathy of cervical region 09/03/2011 Changeable mood 09/01/[address] Myers Chronic anxiety 10/29/2018 ED (erectile dysfunction) 03/30/2013 Family history of malignant neoplasm lung ca Hyperlipidemia, mixed 07/13/2013 Hypertension, essential 09/26/2011 Obesity, Class I, BMI 30-34.9 10/04/2019 PAST SURGICAL HISTORY PAST SURGICAL HISTORY Procedure Laterality Date COLONOSCOP W/ OR W/O BRSH SPEC 2001 Colonoscopy COLONOSCOP W/ OR W/O BRSH SPEC 10/28/2006 Colonoscopy-repeat in COLONOSCOP W/ OR W/O BRSH SPEC 02/25/2012 Colonoscopy COLONOSCOP W/ OR W/O BRSH SPEC 07/08/2017 Colonoscopy EGD W/O OR W/BRUSH/WASH 10/28/2006 EGD REVISE MEDIAN N/CARPAL TUNNEL SURG Bilateral 04/20/2020 Bilateral carpal tunnel release ALLERGIES: Lisinopril and Zocor [Simvastatin] Medications reviewed: Yes FAMILY HISTORY FAMILY HISTORY Problem Relation Age of Onset Cancer Mother lung Cancer Father COLON None Sister None Brother Diabetes Brother SOCIAL HISTORY: SOCIAL HISTORY Social History Tobacco Use Smoking status: Former Smoker Smokeless tobacco: Never Used Tobacco comment: quit 1969 Vaping Use Vaping Use: Never used Substance Use Topics Alcohol use: No Drug use: No Amado denies regular aerobic exercise but is physically active. He watches his diet for sodium, low fat and low cholesterol most of the time. List of current specialists seen: Optho Dr. Myers (psych) End of Live Planning discussed including patients advanced directive wishes: Yes I am willing to follow Amado's advanced directives. PHQ-2 / Depression screen - not at risk for depression Functional Ability/Safety Screen 1. Was the patient's timed Up and Go test unsteady or longer than 30 seconds? No 2. Does the patient need help with the phone, transportation, shopping,preparing meals, housework, laundry, medications or managing money? No 3. Does your home have rugs in the hallway, lack of grab bars in the bathroom(Y) lack of handrails on the stairs or have poor lighting? No Hearing Evaluation: normal PHYSICAL EXAM BP 158/88 (BP Site: Left Arm, BP Position: Sitting, BP Cuff Size: Large Adult) Pulse 72 Resp 16 Ht 170.8 cm (5' 7.25 ) Wt 98 kg (216 lb) BMI 33.58 kg/m? Last 6 Encounter Wt Readings: Date: Wt: 06/21/2022 93 kg (205 lb) 06/09/2022 93.4 kg (206 lb) 05/30/2022 94.9 kg (209 lb 3.2 oz) 12/12/2021 95.3 kg (210 lb) 06/14/2021 94.8 kg (209 lb) 03/21/2020 97.5 kg (214 lb 15.2 oz) Alert and oriented X 3: YES Body mass index is 33.58 kg/m?. Visual acuity: see Optho See below ASSESSMENT/PLAN: 77 year old male The following prevention plan was discussed during the office visit and provided to the patient: See below Lila Kramer MD Chief Complaint Patient presents with: Medicare Wellness Exam HPI Amado Hart is a 77 year old male who presents here today for Chronic Medical Conditions. and Welcome To Medicare Visit. Any concerns today? None today Patient is seeing Dr. Sahu 07/24/2023 Patient is seeing Neurology for snoring; Patient has not been scheduled yet for his sleep study. They ordered home sleep study. He would like to do the overnight study. Patient declined COVID vaccine today. Recently treated for UTI and doing better. Home BP's: 130's/70's Office visit - 6 month follow up 01/28/2023 Patient with hx of HTN, Hyperlipidemia, , elevated blood sugar, Anxiety (seeing psych), obesity, ex-smoker, BPH, ED, chronic back pain, PVC's as well as those reviewed and addressed below and in ROS. Had to stop the lipitor due to muscle pains. When he stopped it the pain improved. He tried to restart it a few times with the same affect. Has been having some arthritis pain especially the right hip. Plan is to have total hip replacement in March. Past medical history, appointments, medications, allergies reviewed. 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 R[facility] ED (erectile dysfunction) 03/30/2013 Elevated blood sugar 06/14/2021 Ex-smoker (more content not included)... [facility] 06-07-2023 Note HNO ID: [id number] Author: Narda Delcid APRN.NATURAL HISTORY COLLECTIONS CURATOR Service: ? Author Type: Nurse Practitioner Type: Progress Notes Filed: 06/07/2023 2:05 PM Note Text: This note was created using NoteWriter. Subjective Amado Hart is a 77 year old male. 77 year old male with PMH enlarged prostate, HTN, hyperlipidemia, OA, presents for urinary complaints. Acute onset today +suprapubic pressure +urgency +frequency +burning Lower back pain Denies recent coitus Denies testicular pain or swelling Denies penile discharge. History of enlarged prostate, has had history of similar sx in past. The history is provided by the patient. No multi disciplined language analyst was used. Male Problem This is a new problem. The current episode started today. The problem occurs constantly. The problem has been unchanged. Associated symptoms include urinary symptoms. Pertinent negatives include no abdominal pain, anorexia, arthralgias, change in bowel habit, chest pain, chills, congestion, coughing, diaphoresis, fatigue, fever, headaches, joint swelling, myalgias, nausea, neck pain, numbness, rash, sore throat, swollen glands, vertigo, visual change, vomiting or weakness. Nothing aggravates the symptoms. He has tried nothing for the symptoms. The treatment provided no relief. 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 Judson LAMBERT (erectile dysfunction) 03/30/2013 Elevated blood sugar 06/14/2021 Ex-smoker 06/14/2021 Family history of colon cancer 06/21/2022 Family history of malignant neoplasm lung ca Hyperlipidemia, mixed 07/13/2013 Hypertension, essential 09/26/[address] 06/21/2022 DPA: Bibiana () Medicare annual wellness visit, subsequent 06/14/2021 Medicare Part B: 2011 Last Done: 06/14/2021 OA (osteoarthritis) 01/28/2023 Obesity, Class I, BMI 30-34.9 10/04/2019 Pruritus ani 12/27/2010 PVC (premature ventricular contraction) 10/11/2022 PAST SURGICAL HISTORY Procedure Laterality Date COLONOSCOPY 10/10/2022 repeat in 5 years COLONOSCOPY FLX DX W/COLLJ SPEC WHEN PFRMD 2001 Colonoscopy COLONOSCOPY FLX DX W/COLLJ SPEC WHEN PFRMD 10/28/2006 Colonoscopy-repeat in -2011 COLONOSCOPY FLX DX W/COLLJ SPEC WHEN PFRMD 02/25/2012 Colonoscopy COLONOSCOPY FLX DX W/COLLJ SPEC WHEN PFRMD 07/08/2017 Colonoscopy ESOPHAGOGASTRODUODENOSCOPY TRANSORAL DIAGNOSTIC 10/28/2006 EGD NEUROPLASTY AND/TRANSPOS MEDIAN NRV CARPAL TUNNE Bilateral 04/20/2020 Bilateral carpal tunnel release TONSILLECTOMY HX ALLERGIES Doxycycline Monohydrate, Lisinopril, and Zocor [Simvastatin] MEDICATIONS losartan (COZAAR) 100 mg tablet Take 1 tablet by mouth once daily. docosahexaenoic acid/epa (FISH OIL ORAL) Take by mouth once daily. atorvastatin (LIPITOR) 20 mg tablet Take 1 tablet by mouth daily at bedtime. For cholesterol. EFFEXOR 25 MG TAB Take one(1) tablet twice daily. ciprofloxacin HCl (CIPRO) 500 mg tablet Take 1 tablet by mouth two times a day for 7 days. finasteride (PROSCAR) 5 mg tablet Take 1 tablet by mouth once daily. diclofenac (VOLTAREN ARTHRITIS PAIN) 1 % topical gel Apply 4 g to affected area four times daily. Max of 16 g joint in 24 hrs and max of 32 g total in 24 hrs. (Patient not taking: Reported on 05/12/2023) FAMILY HISTORY Problem Relation Age of Onset Cancer Mother lung Cancer Father COLON None Sister None Brother Diabetes Brother Social History Tobacco Use Smoking status: Former Types: Cigarettes Smokeless tobacco: Never Tobacco comments: quit 1969 s Vaping Use Vaping Use: Never used Substance Use Topics Alcohol use: No Drug use: No Review of Systems Constitutional: Negative for chills, diaphoresis, fatigue and fever. HENT: Negative for congestion and sore throat. Respiratory: Negative for cough. Cardiovascular: Negative for chest pain. Gastrointestinal: Negative for abdominal pain, anorexia, change in bowel habit, nausea and vomiting. Genitourinary: Positive for difficulty urinating, dysuria, frequency and urgency. Negative for genital sores, hematuria, penile discharge, penile pain, penile swelling, scrotal swelling and testicular pain. Musculoskeletal: Negative for arthralgias, joint swelling, myalgias and neck pain. Skin: Negative for color change, pallor and rash. Allergic/Immunologic: Negative for environmental allergies, food allergies and immunocompromised state. Neurological: Negative for dizziness, vertigo, weakness, numbness and headaches. Hematological: Negative for adenopathy. Does (more content not included)... [facility] 06-07-2023 History of Presen t illness Narrative This note was created using NoteWriter. Subjective Amado Hart is a 77 year old male. 77 year old male with PMH enlarged prostate, HTN, hyperlipidemia, OA, presents for urinary complaints. Acute onset today +suprapubic pressure +urgency +frequency +burning Lower back pain Denies recent coitus Denies testicular pain or swelling Denies penile discharge. History of enlarged prostate, has had history of similar sx in past. The history is provided by the patient. No multi disciplined language analyst was used. Male Problem This is a new problem. The current episode started today. The problem occurs constantly. The problem has been unchanged. Associated symptoms include urinary symptoms. Pertinent negatives include no abdominal pain, anorexia, arthralgias, change in bowel habit, chest pain, chills, congestion, coughing, diaphoresis, fatigue, fever, headaches, joint swelling, myalgias, nausea, neck pain, numbness, rash, sore throat, swollen glands, vertigo, visual change, vomiting or weakness. Nothing aggravates the symptoms. He has tried nothing for the symptoms. The treatment provided no relief. 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 Judson LAMBERT (erectile dysfunction) 03/30/2013 Elevated blood sugar 06/14/2021 Ex-smoker 06/14/2021 Family history of colon cancer 06/21/2022 Family history of malignant neoplasm lung ca Hyperlipidemia, mixed 07/13/2013 Hypertension, essential 09/26/[address] 06/21/2022 DPA: Bibiana () Medicare annual wellness visit, subsequent 06/14/2021 Medicare Part B: 2011 Last Done: 06/14/2021 OA (osteoarthritis) 01/28/2023 Obesity, Class I, BMI 30-34.9 10/04/2019 Pruritus ani 12/27/2010 PVC (premature ventricular contraction) 10/11/2022 PAST SURGICAL HISTORY Procedure Laterality Date COLONOSCOPY 10/10/2022 repeat in 5 years COLONOSCOPY FLX DX W/COLLJ SPEC WHEN PFRMD 2001 Colonoscopy COLONOSCOPY FLX DX W/COLLJ SPEC WHEN PFRMD 10/28/2006 Colonoscopy-repeat in -2011 COLONOSCOPY FLX DX W/COLLJ SPEC WHEN PFRMD 02/25/2012 Colonoscopy COLONOSCOPY FLX DX W/COLLJ SPEC WHEN PFRMD 07/08/2017 Colonoscopy ESOPHAGOGASTRODUODENOSCOPY TRANSORAL DIAGNOSTIC 10/28/2006 EGD NEUROPLASTY &/TRANSPOS MEDIAN NRV CARPAL TUNNE Bilateral 04/20/2020 Bilateral carpal tunnel release TONSILLECTOMY HX ALLERGIES Doxycycline Monohydrate, Lisinopril, and Zocor [Simvastatin] MEDICATIONS losartan (COZAAR) 100 mg tablet Take 1 tablet by mouth once daily. docosahexaenoic acid/epa (FISH OIL ORAL) Take by mouth once daily. atorvastatin (LIPITOR) 20 mg tablet Take 1 tablet by mouth daily at bedtime. For cholesterol. EFFEXOR 25 MG TAB Take one(1) tablet twice daily. ciprofloxacin HCl (CIPRO) 500 mg tablet Take 1 tablet by mouth two times a day for 7 days. finasteride (PROSCAR) 5 mg tablet Take 1 tablet by mouth once daily. diclofenac (VOLTAREN ARTHRITIS PAIN) 1 % topical gel Apply 4 g to affected area four times daily. Max of 16 g joint in 24 hrs and max of 32 g total in 24 hrs. (Patient not taking: Reported on 05/12/2023) FAMILY HISTORY Problem Relation Age of Onset Cancer Mother lung Cancer Father COLON None Sister None Brother Diabetes Brother Social History Tobacco Use Smoking status: Former Types: Cigarettes Smokeless tobacco: Never Tobacco comments: quit 1969 s Vaping Use Vaping Use: Never used Substance Use Topics Alcohol use: No Drug use: No Review of Systems Constitutional: Negative for chills, diaphoresis, fatigue and fever. HENT: Negative for congestion and sore throat. Respiratory: Negative for cough. Cardiovascular: Negative for chest pain. Gastrointestinal: Negative for abdominal pain, anorexia, change in bowel habit, nausea and vomiting. Genitourinary: Positive for difficulty urinating, dysuria, frequency and urgency. Negative for genital sores, hematuria, penile discharge, penile pain, penile swelling, scrotal swelling and testicular pain. Musculoskeletal: Negative for arthralgias, joint swelling, myalgias and neck pain. Skin: Negative for color change, pallor and rash. Allergic/Immunologic: Negative for environmental allergies, food allergies and immunocompromised state. Neurological: Negative for dizziness, vertigo, weakness, numbness and headaches. Hematological: Negative for adenopathy. Does not bruise/bleed easily. Psychiatric/Behavioral: Negative for agitation and behavioral problems. Objective BP 160/88 Pulse 72 Temp 36.4 C (97.6 F) (Tympanic) Resp 16 Wt 99.6 kg (219 lb 9.6 oz) SpO2 98% BMI 32.90 kg/m Physical Exam Vitals and nursing note reviewed. Constitutional: General: He is not in acute distress. Appearance: Normal appearance. He is not ill-appearing, toxic-appearing or diaphoretic. HENT: Head: Normocephalic and atraumatic. Right Ear: External ear normal. Left Ear: External ear normal. Nose: Nose normal. No congestion or rhinorrhea. Mouth/Throat: Mouth: Mucous membranes are moist. Pharynx: Oropharynx is clear. No oropharyngeal exudate or posterior oropharyngeal erythema. Eyes: General: Right eye: No discharge. Left eye: No discharge. Extraocular Movements: Extraocular movements intact. Conjunctiva/sclera: Conjunctivae normal. Pupils: Pupils are equal, round, and reactive to light. Cardiovascular: Rate and Rhythm: Normal rate and regular rhythm. Pulses: Normal pulses. Heart sounds: Normal heart sounds. No murmur heard. No friction rub. No gallop. Pulmonary: Effort: Pulmonary effort is normal. No respiratory distress. Breath sounds: Normal breath sounds. No stridor. No wheezing, rhonchi or rales. Chest: Chest wall: No tenderness. Abdominal: General: Abdomen is flat. There is no distension. Palpations: Abdomen is soft. There is no mass. Tenderness: There is no abdominal tenderness. There is no guarding or rebound. Hernia: No hernia is present. Musculoskeletal: General: No swelling, tenderness, deformity or signs of injury. Normal range of motion. Cervical back: Normal range of motion and neck supple. No rigidity or tenderness. Right lower leg: No edema. Left lower leg: No edema. Lymphadenopathy: Cervical: No cervical adenopathy. Skin: General: Skin is warm and dry. Capillary Refill: Capillary refill takes less than 2 seconds. Coloration: Skin is not jaundiced or pale. Findings: No bruising, lesion or rash. Neurological: General: No focal deficit present. Mental Status: He is alert and oriented to person, place, and time. Cranial Nerves: No cranial nerve deficit. Sensory: No sensory deficit. Motor: No weakness. Coordination: Coordination normal. Gait: Gait normal. Deep Tendon Reflexes: Reflexes normal. Psychiatric: Mood and Affect: Mood normal. Behavior: Behavior normal. Thought Content: Thought content normal. Assessment and Plan ASSESSMENT/PLAN: 1. Dysuria - ICD9: 788.1, ICD10: R30.0 Acute onset today No red flags acute - UA positive for hematuria Renal calculi vs. Prostatitis vs. Cystitis - Send urine for culture - Begin treatment with Ciprofloxacin 500 mg BID for 7 days - Patient education for prevention given - UA DIP, URINE (POC) - URINE CULTURE Narda Delcid APRN.BRENT documented in this encounter [facility] 05-21-2023 Miscellaneous Notes Pt called and is notified of providers message. Pt voices understanding. Pt was worried because he received a letter that he had to sign a financial agreement for $4500 for equipment they would be sending if he didn't send it back. I let him know that the in-home study they usually do a trending pulse ox, so it should just be a sensor they would have hooked up to his finger to read his oxygen level. Pt was fine with this he was just picturing huge machines being sent to him to be responsible for $4500. Pt reports he is fine doing the in-home study. Maria T Solo, KORTNEY Let Ray know that I when I placed the order it automatically directs me to the home test because of the questions I answered and the fact that insurance will not cover a in lab test based on those answerers. I can fax a order to [facility] sleep labs but they may still have to do a in home study first. How would he like me to proceed? Patient came into the office wanting to cancel his at home sleep test. He would prefer to do it at a hotel. The order just needs changed so we can schedule, thank you. Aliya Conn May 21, 2023 10:28 AM documented in this encounter [facility] 05-15-2023 Miscellaneous Notes Surgical request completed for left ring trigger finger release at [facility] on 06/19/2023 with local anesthesia. documented in this encounter [facility] 05-12-2023 Note HNO ID: [id number] Author: Neil aShu MD Service: ? Author Type: Physician Type: Progress Notes Filed: 06/09/2023 7:55 AM Note Text: Neil Sahu MD Department of Orthopaedics Orthopaedics [address] [facility] [address] Dept: [phone] Dept May 12, 2023 CHIEF COMPLAINT: Established Patient and Pain of the Left Hand (4th Trigger finger) HPI Patient presents with: Left Hand - Established Patient, Pain: 4th Trigger finger Pt with 4th trigger finger on left hand. No pain. Right hand dominant. ASSESSMENT: M65.342 Trigger ring finger of left hand (primary encounter diagnosis) PLAN: We reviewed both operative and nonoperative treatment options. The risks, benefits, alternatives and potential complications involving both were discussed. He would like to pursue surgery for the trigger finger on the left ring. Mr. Amado Hart was advised as to contrast therapies and/or to take analgesics/anti-inflammatories as needed and all contraindications were reviewed. OBJECTIVE: Mr. Amado Hart is a pleasant 77 year old in no apparent distress. Gen:There were no vitals taken for this visit. nl development, non obese, no deformities ENT: Normocephalic, normal hearing, moist mucosa CV: Pulses:Radial= 2+ and symmetric, capillary refill < 2 secs, no peripheral edema/varicosities Skin: no rash, bruising or lesions. Good turgor. Psych: cooperative and appropriate, alert and oriented x 3, good mood and affect. Musculoskeletal: Tender to palpation at the A1 birdie site of the left ring finger. Clicking and catching of the digit. Some mild stiffness at the PIP joint. Neurovascular exam intact. Imaging: Deferred today Supporting Subjective Information Below: Past Surgical History: PAST SURGICAL HISTORY Procedure Laterality Date COLONOSCOPY 10/10/2022 repeat in 5 years COLONOSCOPY FLX DX W/COLLJ SPEC WHEN PFRMD 2001 Colonoscopy COLONOSCOPY FLX DX W/COLLJ SPEC WHEN PFRMD 10/28/2006 Colonoscopy-repeat in -2011 COLONOSCOPY FLX DX W/COLLJ SPEC WHEN PFRMD 02/25/2012 Colonoscopy COLONOSCOPY FLX DX W/COLLJ SPEC WHEN PFRMD 07/08/2017 Colonoscopy ESOPHAGOGASTRODUODENOSCOPY TRANSORAL DIAGNOSTIC 10/28/2006 EGD NEUROPLASTY AND/TRANSPOS MEDIAN NRV CARPAL TUNNE Bilateral 04/20/2020 Bilateral carpal tunnel release TONSILLECTOMY HX Medications: Current Outpatient Medications Medication Sig finasteride (PROSCAR) 5 mg tablet Take 1 tablet by mouth once daily. losartan (COZAAR) 100 mg tablet Take 1 tablet by mouth once daily. docosahexaenoic acid/epa (FISH OIL ORAL) Take by mouth once daily. atorvastatin (LIPITOR) 20 mg tablet Take 1 tablet by mouth daily at bedtime. For cholesterol. EFFEXOR 25 MG TAB Take one(1) tablet twice daily. diclofenac (VOLTAREN ARTHRITIS PAIN) 1 % topical gel Apply 4 g to affected area four times daily. Max of 16 g joint in 24 hrs and max of 32 g total in 24 hrs. (Patient not taking: Reported on 05/12/2023) No current facility-administered medications for this visit. Allergies: Doxycycline Monohydrate, Lisinopril, and Zocor [Simvastatin] ROS: General (negative for fatigue, malaise, weight loss/gain) HEENT (negative for headache, earache, recent vision changes, sinus pain, sore throat) Respiratory (no recent shortness of breath, hemoptysis) CV (negative for chest tightness, palpitations) Musculoskeletal (see HPI) Psych (no depression, anxiety) Neil Sahu MD [facility] 05-12-2023 History of Presen t illness Narrative Neil Sahu MD Department of Orthopaedics Orthopaedics [address] [facility] [address] Dept: [phone] Dept May 12, 2023 CHIEF COMPLAINT: Established Patient and Pain of the Left Hand (4th Trigger finger) HPI Patient presents with: Left Hand - Established Patient, Pain: 4th Trigger finger Pt with 4th trigger finger on left hand. No pain. Right hand dominant. ASSESSMENT: M65.342 Trigger ring finger of left hand (primary encounter diagnosis) PLAN: We reviewed both operative and nonoperative treatment options. The risks, benefits, alternatives and potential complications involving both were discussed. He would like to pursue surgery for the trigger finger on the left ring. Mr. Amado Hart was advised as to contrast therapies and/or to take analgesics/anti-inflammatories as needed and all contraindications were reviewed. OBJECTIVE: Mr. Amado Hart is a pleasant 77 year old in no apparent distress. Gen:There were no vitals taken for this visit. nl development, non obese, no deformities ENT: Normocephalic, normal hearing, moist mucosa CV: Pulses:Radial= 2+ and symmetric, capillary refill < 2 secs, no peripheral edema/varicosities Skin: no rash, bruising or lesions. Good turgor. Psych: cooperative and appropriate, alert and oriented x 3, good mood and affect. Musculoskeletal: Tender to palpation at the A1 birdie site of the left ring finger. Clicking and catching of the digit. Some mild stiffness at the PIP joint. Neurovascular exam intact. Imaging: Deferred today Supporting Subjective Information Below: Past Surgical History: PAST SURGICAL HISTORY Procedure Laterality Date COLONOSCOPY 10/10/2022 repeat in 5 years COLONOSCOPY FLX DX W/COLLJ SPEC WHEN PFRMD 2001 Colonoscopy COLONOSCOPY FLX DX W/COLLJ SPEC WHEN PFRMD 10/28/2006 Colonoscopy-repeat in -2011 COLONOSCOPY FLX DX W/COLLJ SPEC WHEN PFRMD 02/25/2012 Colonoscopy COLONOSCOPY FLX DX W/COLLJ SPEC WHEN PFRMD 07/08/2017 Colonoscopy ESOPHAGOGASTRODUODENOSCOPY TRANSORAL DIAGNOSTIC 10/28/2006 EGD NEUROPLASTY &/TRANSPOS MEDIAN NRV CARPAL TUNNE Bilateral 04/20/2020 Bilateral carpal tunnel release TONSILLECTOMY HX Medications: Current Outpatient Medications Medication Sig finasteride (PROSCAR) 5 mg tablet Take 1 tablet by mouth once daily. losartan (COZAAR) 100 mg tablet Take 1 tablet by mouth once daily. docosahexaenoic acid/epa (FISH OIL ORAL) Take by mouth once daily. atorvastatin (LIPITOR) 20 mg tablet Take 1 tablet by mouth daily at bedtime. For cholesterol. EFFEXOR 25 MG TAB Take one(1) tablet twice daily. diclofenac (VOLTAREN ARTHRITIS PAIN) 1 % topical gel Apply 4 g to affected area four times daily. Max of 16 g joint in 24 hrs and max of 32 g total in 24 hrs. (Patient not taking: Reported on 05/12/2023) No current facility-administered medications for this visit. Allergies: Doxycycline Monohydrate, Lisinopril, and Zocor [Simvastatin] ROS: General (negative for fatigue, malaise, weight loss/gain) HEENT (negative for headache, earache, recent vision changes, sinus pain, sore throat) Respiratory (no recent shortness of breath, hemoptysis) CV (negative for chest tightness, palpitations) Musculoskeletal (see HPI) Psych (no depression, anxiety) Neil Sahu MD documented in this encounter [facility] 04-22-2023 Note HNO ID: [id number] Author: Lila Kramer MD Service: ? Author Type: Physician Type: Progress Notes Filed: 04/22/2023 11:58 AM Note Text: Chief Complaint Patient presents with: Discussion: Would like an order for sleep study; snoring, not a restful nights sleep HPI Amado Hart is a 77 year old male who presents here today for Above Complaints.. 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 Wakes up several times a night. Not aware of choking for air when he wakes up. Not a restful nights sleep and tired during the day. Past medical history, appointments, medications, allergies reviewed. 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 R[facility] ED (erectile dysfunction) 03/30/2013 Elevated blood sugar 06/14/2021 Ex-smoker 06/14/2021 Family history of colon cancer 06/21/2022 Family history of malignant neoplasm lung ca Hyperlipidemia, mixed 07/13/2013 Hypertension, essential 09/26/[address] 06/21/2022 DPA: Bibiana () Medicare annual wellness visit, subsequent 06/14/2021 Medicare Part B: 2011 Last Done: 06/14/2021 OA (osteoarthritis) 01/28/2023 Obesity, Class I, BMI 30-34.9 10/04/2019 Pruritus ani 12/27/2010 PVC (premature ventricular contraction) 10/11/2022 Previous Surgical History PAST SURGICAL HISTORY Procedure Laterality Date COLONOSCOPY 10/10/2022 repeat in 5 years COLONOSCOPY FLX DX W/COLLJ SPEC WHEN PFRMD 2001 Colonoscopy COLONOSCOPY FLX DX W/COLLJ SPEC WHEN PFRMD 10/28/2006 Colonoscopy-repeat in -2011 COLONOSCOPY FLX DX W/COLLJ SPEC WHEN PFRMD 02/25/2012 Colonoscopy COLONOSCOPY FLX DX W/COLLJ SPEC WHEN PFRMD 07/08/2017 Colonoscopy ESOPHAGOGASTRODUODENOSCOPY TRANSORAL DIAGNOSTIC 10/28/2006 EGD NEUROPLASTY AND/TRANSPOS MEDIAN NRV CARPAL TUNNE Bilateral 04/20/2020 Bilateral carpal tunnel release TONSILLECTOMY HX Family History FAMILY HISTORY Problem Relation Age of Onset Cancer Mother lung Cancer Father COLON None Sister None Brother Diabetes Brother Patient Allergies ALLERGIES Allergen Reactions Doxycycline Monohyd* Other: See Comments Weakness, sweating Lisinopril Cough Zocor [Simvastatin] Myalgia Current Medications Current Outpatient Medications on File Prior to Visit Medication Sig finasteride (PROSCAR) 5 mg tablet Take 1 tablet by mouth once daily. diclofenac (VOLTAREN ARTHRITIS PAIN) 1 % topical gel Apply 4 g to affected area four times daily. Max of 16 g joint in 24 hrs and max of 32 g total in 24 hrs. losartan (COZAAR) 100 mg tablet Take 1 tablet by mouth once daily. docosahexaenoic acid/epa (FISH OIL ORAL) Take by mouth once daily. atorvastatin (LIPITOR) 20 mg tablet Take 1 tablet by mouth daily at bedtime. For cholesterol. EFFEXOR 25 MG TAB Take one(1) tablet twice daily. No current facility-administered medications on file prior to visit. Social History Social History Tobacco Use Smoking status: Former Types: Cigarettes Smokeless tobacco: Never Tobacco comments: quit 1969 s Vaping Use Vaping Use: Never used Substance Use Topics Alcohol use: No Drug use: No Review of Symptoms REVIEW OF SYSTEMS See HPI EXAM: BP 142/78 Pulse 77 Resp 16 Wt 97.1 kg (214 lb) SpO2 98% BMI 32.07 kg/m? BP 128/62 Pulse 77 Resp 16 Wt 97.1 kg (214 lb) SpO2 98% BMI 32.07 kg/m? General Appearance: Well appearing, alert, in no acute distress, well-hydrated, well nourished.. Lungs: Lungs clear to auscultation. No wheezing, rhonchi, rales.. Heart: RRR without murmur, gallop, or rubs. No ectopy. Health Maintenance List Influenza Vaccine(1) due on 04/04/2023 Covid-19 Vaccine(3 - Pfizer series) due on 07/30/2023 Annual PCP Team Chronic Disease Visit due on 03/17/2024 BP Controlled (<130/80) due on 03/17/2024 Diabetes Screening due on 03/17/2026 Colorectal Cancer Screening due on 10/11/2027 DTaP,Tdap,Td Vaccine(4 - Td or Tdap) due on 10/10/2029 Advance Directive Discussion Completed Depression Assessment Completed Hepatitis C Screening Completed Shingrix Vaccine Completed Pneumococcal Vaccine: 65+ Completed Data reviewed A/P ASSESSMENT/PLAN: 1. Snores - ICD9: 786.09, ICD10: R06.83 (primary diagnosis) Check - HOME SLEEP APNEA TEST (HSAT) 2. Hypertension, essential - ICD9: 401.9, ICD10: I10 - Controlled - Continue current medications - Recommend home blood pressure monitoring, to bring results to next visit - Encouraged sodium restriction, DASH or Mediterranean diet - Recommend regular (more content not included)... [facility] 04-22-2023 History of Presen t illness Narrative Chief Complaint Patient presents with: Discussion: Would like an order for sleep study; snoring, not a restful nights sleep HPI Amado Hart is a 77 year old male who presents here today for Above Complaints.. 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 Wakes up several times a night. Not aware of choking for air when he wakes up. Not a restful nights sleep and tired during the day. Past medical history, appointments, medications, allergies reviewed. 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 Judson LAMBERT (erectile dysfunction) 03/30/2013 Elevated blood sugar 06/14/2021 Ex-smoker 06/14/2021 Family history of colon cancer 06/21/2022 Family history of malignant neoplasm lung ca Hyperlipidemia, mixed 07/13/2013 Hypertension, essential 09/26/[address] 06/21/2022 DPA: Bibiana () Medicare annual wellness visit, subsequent 06/14/2021 Medicare Part B: 2011 Last Done: 06/14/2021 OA (osteoarthritis) 01/28/2023 Obesity, Class I, BMI 30-34.9 10/04/2019 Pruritus ani 12/27/2010 PVC (premature ventricular contraction) 10/11/2022 Previous Surgical History PAST SURGICAL HISTORY Procedure Laterality Date COLONOSCOPY 10/10/2022 repeat in 5 years COLONOSCOPY FLX DX W/COLLJ SPEC WHEN PFRMD 2001 Colonoscopy COLONOSCOPY FLX DX W/COLLJ SPEC WHEN PFRMD 10/28/2006 Colonoscopy-repeat in -2011 COLONOSCOPY FLX DX W/COLLJ SPEC WHEN PFRMD 02/25/2012 Colonoscopy COLONOSCOPY FLX DX W/COLLJ SPEC WHEN PFRMD 07/08/2017 Colonoscopy ESOPHAGOGASTRODUODENOSCOPY TRANSORAL DIAGNOSTIC 10/28/2006 EGD NEUROPLASTY &/TRANSPOS MEDIAN NRV CARPAL TUNNE Bilateral 04/20/2020 Bilateral carpal tunnel release TONSILLECTOMY HX Family History FAMILY HISTORY Problem Relation Age of Onset Cancer Mother lung Cancer Father COLON None Sister None Brother Diabetes Brother Patient Allergies ALLERGIES Allergen Reactions Doxycycline Monohyd* Other: See Comments Weakness, sweating Lisinopril Cough Zocor [Simvastatin] Myalgia Current Medications Current Outpatient Medications on File Prior to Visit Medication Sig finasteride (PROSCAR) 5 mg tablet Take 1 tablet by mouth once daily. diclofenac (VOLTAREN ARTHRITIS PAIN) 1 % topical gel Apply 4 g to affected area four times daily. Max of 16 g joint in 24 hrs and max of 32 g total in 24 hrs. losartan (COZAAR) 100 mg tablet Take 1 tablet by mouth once daily. docosahexaenoic acid/epa (FISH OIL ORAL) Take by mouth once daily. atorvastatin (LIPITOR) 20 mg tablet Take 1 tablet by mouth daily at bedtime. For cholesterol. EFFEXOR 25 MG TAB Take one(1) tablet twice daily. No current facility-administered medications on file prior to visit. Social History Social History Tobacco Use Smoking status: Former Types: Cigarettes Smokeless tobacco: Never Tobacco comments: quit 1969 Vaping Use Vaping Use: Never used Substance Use Topics Alcohol use: No Drug use: No Review of Symptoms REVIEW OF SYSTEMS See HPI EXAM: BP 142/78 Pulse 77 Resp 16 Wt 97.1 kg (214 lb) SpO2 98% BMI 32.07 kg/m BP 128/62 Pulse 77 Resp 16 Wt 97.1 kg (214 lb) SpO2 98% BMI 32.07 kg/m General Appearance: Well appearing, alert, in no acute distress, well-hydrated, well nourished.. Lungs: Lungs clear to auscultation. No wheezing, rhonchi, rales.. Heart: RRR without murmur, gallop, or rubs. No ectopy. Health Maintenance List Influenza Vaccine(1) due on 04/04/2023 Covid-19 Vaccine(3 - Pfizer series) due on 07/30/2023 Annual PCP Team Chronic Disease Visit due on 03/17/2024 BP Controlled (<130/80) due on 03/17/2024 Diabetes Screening due on 03/17/2026 Colorectal Cancer Screening due on 10/11/2027 DTaP,Tdap,Td Vaccine(4 - Td or Tdap) due on 10/10/2029 Advance Directive Discussion Completed Depression Assessment Completed Hepatitis C Screening Completed Shingrix Vaccine Completed Pneumococcal Vaccine: 65+ Completed Data reviewed A/P ASSESSMENT/PLAN: 1. Snores - ICD9: 786.09, ICD10: R06.83 (primary diagnosis) Check - HOME SLEEP APNEA TEST (HSAT) 2. Hypertension, essential - ICD9: 401.9, ICD10: I10 - Controlled - Continue current medications - Recommend home blood pressure monitoring, to bring results to next visit - Encouraged sodium restriction, DASH or Mediterranean diet - Recommend regular aerobic exercise Check - HOME SLEEP APNEA TEST (HSAT) 3. Hypersomnolence - ICD9: 780.54, ICD10: G47.10 Check - HOME SLEEP APNEA TEST (HSAT) F/u next routine Lila Kramer MD documented in this encounter [facility] 03-21-2023 Miscellaneous Notes Faxed and left detailed message on patient vm Jimena Jean Baptiste Ma Ok to fax pro-op clearance packet to tanner davila and then let patient know this has mary done. documented in this encounter [facility] 03-18-2023 Miscellaneous Notes Left message for patient to return call to office Cindy Haro Cma Please let patient know his labs are normal. documented in this encounter [facility] 03-17-2023 Note HNO ID: [id number] Author: Lila Kramer MD Service: ? Author Type: Physician Type: Progress Notes Filed: 03/21/2023 1:42 PM Note Text: Chief Complaint No chief complaint on file. RAMSES Hart is a 77 year old male who presents here today for pre op. . Office visit - pre op 03/19/2023 Patient with right hip arthritis and pain and will be having right hip Total arthroplasty on 03/26/[address] Byrd. Patient with Hx of HTN, hyperlipidemia, PVC's. Can walk a flight of stairs and move a piece of furniture without shortness of breath or chest pain. Past medical history, appointments, medications, allergies reviewed. 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 [facility] ED (erectile dysfunction) 03/30/2013 Elevated blood sugar 06/14/2021 Ex-smoker 06/14/2021 Family history of colon cancer 06/21/2022 Family history of malignant neoplasm lung ca Hyperlipidemia, mixed 07/13/2013 Hypertension, essential 09/26/[address] 06/21/2022 DPA: Bibiana () Medicare annual wellness visit, subsequent 06/14/2021 Medicare Part B: 2011 Last Done: 06/14/2021 OA (osteoarthritis) 01/28/2023 Obesity, Class I, BMI 30-34.9 10/04/2019 Pruritus ani 12/27/2010 PVC (premature ventricular contraction) 10/11/2022 Previous Surgical History PAST SURGICAL HISTORY Procedure Laterality Date COLONOSCOPY 10/10/2022 repeat in 5 years COLONOSCOPY FLX DX W/COLLJ SPEC WHEN PFRMD 2001 Colonoscopy COLONOSCOPY FLX DX W/COLLJ SPEC WHEN PFRMD 10/28/2006 Colonoscopy-repeat in 3-2012 COLONOSCOPY FLX DX W/COLLJ SPEC WHEN PFRMD 02/25/2012 Colonoscopy COLONOSCOPY FLX DX W/COLLJ SPEC WHEN PFRMD 07/08/2017 Colonoscopy ESOPHAGOGASTRODUODENOSCOPY TRANSORAL DIAGNOSTIC 10/28/2006 EGD NEUROPLASTY AND/TRANSPOS MEDIAN NRV CARPAL TUNNE Bilateral 04/20/2020 Bilateral carpal tunnel release TONSILLECTOMY HX Family History FAMILY HISTORY Problem Relation Age of Onset Cancer Mother lung Cancer Father COLON None Sister None Brother Diabetes Brother Patient Allergies ALLERGIES Allergen Reactions Doxycycline Monohyd* Other: See Comments Weakness, sweating Lisinopril Cough Zocor [Simvastatin] Myalgia Current Medications Current Outpatient Medications on File Prior to Visit Medication Sig finasteride (PROSCAR) 5 mg tablet Take 1 tablet by mouth once daily. diclofenac (VOLTAREN ARTHRITIS PAIN) 1 % topical gel Apply 4 g to affected area four times daily. Max of 16 g joint in 24 hrs and max of 32 g total in 24 hrs. losartan (COZAAR) 100 mg tablet Take 1 tablet by mouth once daily. docosahexaenoic acid/epa (FISH OIL ORAL) Take by mouth once daily. atorvastatin (LIPITOR) 20 mg tablet Take 1 tablet by mouth daily at bedtime. For cholesterol. EFFEXOR 25 MG TAB Take one(1) tablet twice daily. No current facility-administered medications on file prior to visit. Social History Social History Tobacco Use Smoking status: Former Types: Cigarettes Smokeless tobacco: Never Tobacco comments: quit 1969 s Vaping Use Vaping Use: Never used Substance Use Topics Alcohol use: No Drug use: No Review of Symptoms REVIEW OF SYSTEMS GENERAL: No weight loss, malaise or fevers HEENT: Negative for frequent or significant headaches, No changes in hearing or vision, no nose bleeds or other nasal problems NECK: Negative for lumps, goiter, pain and significant neck swelling RESPIRATORY: Negative for cough, hemoptysis, wheezing, COPD, dyspnea or shortness of breath CARDIOVASCULAR: Negative for chest pain, leg swelling, hypertension, CHF or palpitations GI: No nausea, vomiting, or diarrhea and No heartburn or reflux symptoms. No abdominal pain : No history of dysuria, frequency or blood MUSCULOSKELETAL: right hip pain. SKIN: Negative for lesions, rash, and itching HEMATOLOGY/LYMPHOLOGY: Negative for prolonged bleeding, bruising easily or swollen nodes ENDOCRINE: Negative for cold or heat intolerance, polyuria, polydipsia and goiter NEURO: No history of headaches, syncope, paralysis, seizures or tremors EXAM: BP 128/76 (BP Site: Right Arm, BP Position: Sitting, BP Cuff Size: Large Adult) Pulse 82 Resp 16 Wt 97.1 kg (214 lb) BMI 32.07 kg/m? Last 5 Encounter Wt Readings: Date: Wt: 03/17/2023 97.1 kg (214 lb) 01/28/2023 96.2 kg (212 lb) 10/11/2022 95.3 kg (210 lb) 09/19/2022 96.3 kg (212 lb 3.2 oz) 07/30/2022 96.2 kg (212 lb) General Appearance: Well appearing, alert, in no acute distress, well-hydrated, well nicolle (more content not included)... [facility] 03-17-2023 History of Presen t illness Narrative Chief Complaint No chief complaint on file. HPI Amado Hart is a 77 year old male who presents here today for pre op. . Office visit - pre op 03/19/2023 Patient with right hip arthritis and pain and will be having right hip Total arthroplasty on 03/26/[address] Byrd. Patient with Hx of HTN, hyperlipidemia, PVC's. Can walk a flight of stairs and move a piece of furniture without shortness of breath or chest pain. Past medical history, appointments, medications, allergies reviewed. 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 Judson LAMBERT (erectile dysfunction) 03/30/2013 Elevated blood sugar 06/14/2021 Ex-smoker 06/14/2021 Family history of colon cancer 06/21/2022 Family history of malignant neoplasm lung ca Hyperlipidemia, mixed 07/13/2013 Hypertension, essential 09/26/[address] 06/21/2022 DPA: Bibiana () Medicare annual wellness visit, subsequent 06/14/2021 Medicare Part B: 2011 Last Done: 06/14/2021 OA (osteoarthritis) 01/28/2023 Obesity, Class I, BMI 30-34.9 10/04/2019 Pruritus ani 12/27/2010 PVC (premature ventricular contraction) 10/11/2022 Previous Surgical History PAST SURGICAL HISTORY Procedure Laterality Date COLONOSCOPY 10/10/2022 repeat in 5 years COLONOSCOPY FLX DX W/COLLJ SPEC WHEN PFRMD 2001 Colonoscopy COLONOSCOPY FLX DX W/COLLJ SPEC WHEN PFRMD 10/28/2006 Colonoscopy-repeat in -2011 COLONOSCOPY FLX DX W/COLLJ SPEC WHEN PFRMD 02/25/2012 Colonoscopy COLONOSCOPY FLX DX W/COLLJ SPEC WHEN PFRMD 07/08/2017 Colonoscopy ESOPHAGOGASTRODUODENOSCOPY TRANSORAL DIAGNOSTIC 10/28/2006 EGD NEUROPLASTY &/TRANSPOS MEDIAN NRV CARPAL TUNNE Bilateral 04/20/2020 Bilateral carpal tunnel release TONSILLECTOMY HX Family History FAMILY HISTORY Problem Relation Age of Onset Cancer Mother lung Cancer Father COLON None Sister None Brother Diabetes Brother Patient Allergies ALLERGIES Allergen Reactions Doxycycline Monohyd* Other: See Comments Weakness, sweating Lisinopril Cough Zocor [Simvastatin] Myalgia Current Medications Current Outpatient Medications on File Prior to Visit Medication Sig finasteride (PROSCAR) 5 mg tablet Take 1 tablet by mouth once daily. diclofenac (VOLTAREN ARTHRITIS PAIN) 1 % topical gel Apply 4 g to affected area four times daily. Max of 16 g joint in 24 hrs and max of 32 g total in 24 hrs. losartan (COZAAR) 100 mg tablet Take 1 tablet by mouth once daily. docosahexaenoic acid/epa (FISH OIL ORAL) Take by mouth once daily. atorvastatin (LIPITOR) 20 mg tablet Take 1 tablet by mouth daily at bedtime. For cholesterol. EFFEXOR 25 MG TAB Take one(1) tablet twice daily. No current facility-administered medications on file prior to visit. Social History Social History Tobacco Use Smoking status: Former Types: Cigarettes Smokeless tobacco: Never Tobacco comments: quit 1969 s Vaping Use Vaping Use: Never used Substance Use Topics Alcohol use: No Drug use: No Review of Symptoms REVIEW OF SYSTEMS GENERAL: No weight loss, malaise or fevers HEENT: Negative for frequent or significant headaches, No changes in hearing or vision, no nose bleeds or other nasal problems NECK: Negative for lumps, goiter, pain and significant neck swelling RESPIRATORY: Negative for cough, hemoptysis, wheezing, COPD, dyspnea or shortness of breath CARDIOVASCULAR: Negative for chest pain, leg swelling, hypertension, CHF or palpitations GI: No nausea, vomiting, or diarrhea and No heartburn or reflux symptoms. No abdominal pain : No history of dysuria, frequency or blood MUSCULOSKELETAL: right hip pain. SKIN: Negative for lesions, rash, and itching HEMATOLOGY/LYMPHOLOGY: Negative for prolonged bleeding, bruising easily or swollen nodes ENDOCRINE: Negative for cold or heat intolerance, polyuria, polydipsia and goiter NEURO: No history of headaches, syncope, paralysis, seizures or tremors EXAM: BP 128/76 (BP Site: Right Arm, BP Position: Sitting, BP Cuff Size: Large Adult) Pulse 82 Resp 16 Wt 97.1 kg (214 lb) BMI 32.07 kg/m Last 5 Encounter Wt Readings: Date: Wt: 03/17/2023 97.1 kg (214 lb) 01/28/2023 96.2 kg (212 lb) 10/11/2022 95.3 kg (210 lb) 09/19/2022 96.3 kg (212 lb 3.2 oz) 07/30/2022 96.2 kg (212 lb) General Appearance: Well appearing, alert, in no acute distress, well-hydrated, well nourished.. Skin: Skin color, texture, turgor normal, no suspicious rashes or lesions. Head: Normocephalic, no masses, lesions, tenderness or abnormalities. Eyes: Anicteric sclera. Pupils are equally round and reactive to light. Extraocular movements are intact. . Ears: External ears, TM's normal, canals clear. Nose/Sinuses: Nares normal, septum midline, mucosa normal, no drainage or sinus tenderness. Oropharynx: Lips, mucosa, and tongue normal, teeth and gums normal, oropharynx normal. Neck: Supple, no adenopathy; thyroid symmetric, normal size, no bruits. Lungs: Lungs clear to auscultation. No wheezing, rhonchi, rales.. Heart: RRR without murmur, gallop, or rubs. No ectopy. Abdomen: Normal abdominal exam, Abdomen soft, non-tender. Bowel sounds normal. No masses, organomegaly. Extremities: No deformities, edema, skin discoloration,. Good capillary refill. . Musculoskeletal: Muscular strength intact, No joint swelling, deformity, or tenderness. Peripheral Pulses: Normal. Neurologic: Gait normal. Reflexes normal and symmetric. Sensation to light touch and crainal nerves 2-12 intact.. Health Maintenance List COVID-19 VACCINE(3 - Pfizer series) due on 07/30/2023 INFLUENZA(1) due on 04/04/2023 ANNUAL PCP TEAM CHRONIC DISEASE VISIT due on 01/29/2024 BP CONTROLLED (<130/80) due on 01/29/2024 DIABETES SCREEN due on 06/19/2025 COLORECTAL CANCER SCREENING due on 10/11/2027 DTAP,TDAP,TD(4 - Td or Tdap) due on 10/10/2029 ADVANCE DIRECTIVE DISCUSSION Completed DEPRESSION ASSESSMENT Completed HEPATITIS C SCREENING Completed SHINGRIX VACCINE Completed PNEUMOCOCCAL: 65+ Completed Data reviewed EKG done 02/25/2023 shows sinus rhythm with PVC. No acute changes and no changes compared to EKG done 10/11/2022 Component Latest Ref Rng & Units 02/25/2023 03/17/2023 WBC 3.4 - 10.8 K/uL 4.9 RBC 4.14 - 5.80 M/uL 4.16 Hemoglobin 12.6 - 17.7 g/dL 13.3 Hematocrit 37.5 - 51.0 % 39.4 MCV 79 - 97 fL 94.7 MCH 26.6 - 33 Pg 32 MCHC 31.5 - 35.7 g/dL 33.8 RDW 12.3 - 15.4 % 13.4 Platelet Count 150 - 379 k/uL 281 Neutrophil % % 55.3 Lymphocyte % % 31.7 Monocyte % % 11.4 Eosinophil % % 1.0 Basophil % % 0.5 NEUTROPHILS ABSOLUTE 1.4 - 7.0 k/uL 2.7 LYMPHS ABSOLUTE 0.7 - 3.1 k/uL 1.6 MONOCYTES ABSOLUTE 0.1 - 0.9 k/uL 0.5 EOS ABSOLUTE 0.0 - 0.4 k/uL 0.1 BASO ABSOLUTE 0.0 - 0.2 k/uL 0.0 Glucose 74 - 99 mg/dL 96 BUN 9 - 24 mg/dL 17 Creatinine 0.73 - 1.22 mg/dL 0.81 Sodium 136 - 144 mmol/L 136 Potassium 3.7 - 5.1 mmol/L 5.0 Chloride 97 - 105 mmol/L 103 CO2 22 - 30 mmol/L 24 Anion Gap 9 - 18 mmol/L 9 Calcium 8.5 - 10.2 mg/dL 9.2 eGFR >=60 mL/min/1.73m 91 A/P ASSESSMENT/PLAN: 1. Pre-op examination - ICD9: V72.84, ICD10: Z01.818 (primary diagnosis) - check BMP. This is a moderate risk surgery based on the ACC/AHA classification of surgical procedure risk. Based on the Joselo's simple cardiac risk index patient has a less then 0.4% cardiac risk. Patient's functional capacity is moderate to excellent. Based on these factors no further cardiac testing is needed. Patient is clear t proceed with surgery. 2. Arthritis of right hip - ICD9: 716.95, ICD10: M16.11 - plan for total hip replacement on 03/26/2023. 3. Hypertension, essential - ICD9: 401.9, ICD10: I10 - Controlled - Continue current medications - Recommend home blood pressure monitoring, to bring results to next visit - Encouraged sodium restriction, DASH or Mediterranean diet - Recommend regular aerobic exercise 4. Hyperlipidemia, mixed - ICD9: 272.2, ICD10: E78.2 - no changes at this time 5. PVC (premature ventricular contraction) - ICD9: 427.69, ICD10: I49.3 - clinically stable no changes. F/u next routine Lila Kramer MD documented in this encounter [facility] 01-28-2023 Note HNO ID: [id number] Author: Lila Kramer MD Service: ? Author Type: Physician Type: Progress Notes Filed: 01/28/2023 10:26 AM Note Text: Chief Complaint No chief complaint on file. HPI Amado Hart is a 77 year old male who presents here today for 6 month follow up . Office visit - 6 month follow up Patient with hx of HTN, Hyperlipidemia, , elevated blood sugar, Anxiety (seeing psych), obesity, ex-smoker, BPH, ED, chronic back pain, PVC's as well as those reviewed and addressed below and in ROS. Had to stop the lipitor due to muscle pains. When he stopped it the pain improved. He tried to restart it a few times with the same affect. Has been having some arthritis pain especially the right hip. Plan is to have total hip replacement in March. Office visit - medicare wellness 06/2022 Patient with hx of HTN, Hyperlipidemia, Anxiety (seeing psych), obesity, ex-smoker, BPH, ED, as well as those reviewed and addressed below and in ROS. Patient has been doing well. Due for repeat colonoscopy. Patient's psych provider will be retiring and wants to know if I will manage his medication. Past medical history, appointments, medications, allergies reviewed. 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 Judson LAMBERT (erectile dysfunction) 03/30/2013 Elevated blood sugar 06/14/2021 Ex-smoker 06/14/2021 Family history of colon cancer 06/21/2022 Family history of malignant neoplasm lung ca Hyperlipidemia, mixed 07/13/2013 Hypertension, essential 09/26/[address] 06/21/2022 DPA: Bibiana () Medicare annual wellness visit, subsequent 06/14/2021 Medicare Part B: 2011 Last Done: 06/14/2021 Obesity, Class I, BMI 30-34.9 10/04/2019 Pruritus ani 12/27/2010 Previous Surgical History PAST SURGICAL HISTORY Procedure Laterality Date COLONOSCOPY 10/10/2022 repeat in 5 years COLONOSCOPY FLX DX W/COLLJ SPEC WHEN PFRMD 2001 Colonoscopy COLONOSCOPY FLX DX W/COLLJ SPEC WHEN PFRMD 10/28/2006 Colonoscopy-repeat in -2011 COLONOSCOPY FLX DX W/COLLJ SPEC WHEN PFRMD 02/25/2012 Colonoscopy COLONOSCOPY FLX DX W/COLLJ SPEC WHEN PFRMD 07/08/2017 Colonoscopy ESOPHAGOGASTRODUODENOSCOPY TRANSORAL DIAGNOSTIC 10/28/2006 EGD NEUROPLASTY AND/TRANSPOS MEDIAN NRV CARPAL TUNNE Bilateral 04/20/2020 Bilateral carpal tunnel release TONSILLECTOMY HX Family History FAMILY HISTORY Problem Relation Age of Onset Cancer Mother lung Cancer Father COLON None Sister None Brother Diabetes Brother Patient Allergies ALLERGIES Allergen Reactions Doxycycline Monohyd* Other: See Comments Weakness, sweating Lisinopril Cough Zocor [Simvastatin] Myalgia Current Medications Current Outpatient Medications on File Prior to Visit Medication Sig losartan (COZAAR) 100 mg tablet Take 1 tablet by mouth once daily. docosahexaenoic acid/epa (FISH OIL ORAL) Take by mouth once daily. cholecalciferol, vitamin D3, (VITAMIN D3 ORAL) Take 2 tablets by mouth once daily. atorvastatin (LIPITOR) 20 mg tablet Take 1 tablet by mouth daily at bedtime. For cholesterol. EFFEXOR 25 MG TAB Take one(1) tablet twice daily. No current facility-administered medications on file prior to visit. Social History Social History Tobacco Use Smoking status: Former Types: Cigarettes Smokeless tobacco: Never Tobacco comments: quit 1969 Vaping Use Vaping Use: Never used Substance Use Topics Alcohol use: No Drug use: No Review of Symptoms REVIEW OF SYSTEMS GENERAL: No weight loss, malaise or fevers NECK: Negative for lumps, goiter, pain and significant neck swelling RESPIRATORY: Negative for cough, hemoptysis, wheezing, COPD, dyspnea or shortness of breath CARDIOVASCULAR: Negative for chest pain, leg swelling, hypertension, CHF or palpitations PSYCH: doing well with Effexor. : no dysuria or blood. Some nights up every 2-3 hrs to pee. No difficulty starting but has a slower stream. ENDOCRINE: Negative for cold or heat intolerance, polyuria, polydipsia and goiter NEURO: No history of headaches, syncope, paralysis, seizures or tremors Depression Screening 10/29/2018 2019 06/21/2022 01/28/2023 PHQ-2 Score 0 0 0 0 PHQ-9 Score - 0 - - Depression screening tool completed and reviewed. Based on score and interview, patient is not at risk for depression. Screening tool discussed with patient, and I recommended no further intervention at this time. EXAM: BP 130/76 Pulse 68 Resp 14 Wt 96.2 kg (212 lb) BMI 31.77 kg/m? Last 5 Encounter W (more content not included)... [facility] 01-28-2023 History of Presen t illness Narrative Chief Complaint No chief complaint on file. HPI Amado Hart is a 77 year old male who presents here today for 6 month follow up . Office visit - 6 month follow up Patient with hx of HTN, Hyperlipidemia, , elevated blood sugar, Anxiety (seeing psych), obesity, ex-smoker, BPH, ED, chronic back pain, PVC's as well as those reviewed and addressed below and in ROS. Had to stop the lipitor due to muscle pains. When he stopped it the pain improved. He tried to restart it a few times with the same affect. Has been having some arthritis pain especially the right hip. Plan is to have total hip replacement in March. Office visit - medicare wellness 06/2022 Patient with hx of HTN, Hyperlipidemia, Anxiety (seeing psych), obesity, ex-smoker, BPH, ED, as well as those reviewed and addressed below and in ROS. Patient has been doing well. Due for repeat colonoscopy. Patient's psych provider will be retiring and wants to know if I will manage his medication. Past medical history, appointments, medications, allergies reviewed. 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 Judson LAMBERT (erectile dysfunction) 03/30/2013 Elevated blood sugar 06/14/2021 Ex-smoker 06/14/2021 Family history of colon cancer 06/21/2022 Family history of malignant neoplasm lung ca Hyperlipidemia, mixed 07/13/2013 Hypertension, essential 09/26/[address] 06/21/2022 DPA: Bibiana () Medicare annual wellness visit, subsequent 06/14/2021 Medicare Part B: 2011 Last Done: 06/14/2021 Obesity, Class I, BMI 30-34.9 10/04/2019 Pruritus ani 12/27/2010 Previous Surgical History PAST SURGICAL HISTORY Procedure Laterality Date COLONOSCOPY 10/10/2022 repeat in 5 years COLONOSCOPY FLX DX W/COLLJ SPEC WHEN PFRMD 2001 Colonoscopy COLONOSCOPY FLX DX W/COLLJ SPEC WHEN PFRMD 10/28/2006 Colonoscopy-repeat in -2011 COLONOSCOPY FLX DX W/COLLJ SPEC WHEN PFRMD 02/25/2012 Colonoscopy COLONOSCOPY FLX DX W/COLLJ SPEC WHEN PFRMD 07/08/2017 Colonoscopy ESOPHAGOGASTRODUODENOSCOPY TRANSORAL DIAGNOSTIC 10/28/2006 EGD NEUROPLASTY &/TRANSPOS MEDIAN NRV CARPAL TUNNE Bilateral 04/20/2020 Bilateral carpal tunnel release TONSILLECTOMY HX Family History FAMILY HISTORY Problem Relation Age of Onset Cancer Mother lung Cancer Father COLON None Sister None Brother Diabetes Brother Patient Allergies ALLERGIES Allergen Reactions Doxycycline Monohyd* Other: See Comments Weakness, sweating Lisinopril Cough Zocor [Simvastatin] Myalgia Current Medications Current Outpatient Medications on File Prior to Visit Medication Sig losartan (COZAAR) 100 mg tablet Take 1 tablet by mouth once daily. docosahexaenoic acid/epa (FISH OIL ORAL) Take by mouth once daily. cholecalciferol, vitamin D3, (VITAMIN D3 ORAL) Take 2 tablets by mouth once daily. atorvastatin (LIPITOR) 20 mg tablet Take 1 tablet by mouth daily at bedtime. For cholesterol. EFFEXOR 25 MG TAB Take one(1) tablet twice daily. No current facility-administered medications on file prior to visit. Social History Social History Tobacco Use Smoking status: Former Types: Cigarettes Smokeless tobacco: Never Tobacco comments: quit 1969 Vaping Use Vaping Use: Never used Substance Use Topics Alcohol use: No Drug use: No Review of Symptoms REVIEW OF SYSTEMS GENERAL: No weight loss, malaise or fevers NECK: Negative for lumps, goiter, pain and significant neck swelling RESPIRATORY: Negative for cough, hemoptysis, wheezing, COPD, dyspnea or shortness of breath CARDIOVASCULAR: Negative for chest pain, leg swelling, hypertension, CHF or palpitations PSYCH: doing well with Effexor. : no dysuria or blood. Some nights up every 2-3 hrs to pee. No difficulty starting but has a slower stream. ENDOCRINE: Negative for cold or heat intolerance, polyuria, polydipsia and goiter NEURO: No history of headaches, syncope, paralysis, seizures or tremors Depression Screening 10/29/2018 2019 06/21/2022 01/28/2023 PHQ-2 Score 0 0 0 0 PHQ-9 Score - 0 - - Depression screening tool completed and reviewed. Based on score and interview, patient is not at risk for depression. Screening tool discussed with patient, and I recommended no further intervention at this time. EXAM: BP 130/76 Pulse 68 Resp 14 Wt 96.2 kg (212 lb) BMI 31.77 kg/m Last 5 Encounter Wt Readings: Date: Wt: 01/28/2023 96.2 kg (212 lb) 10/11/2022 95.3 kg (210 lb) 09/19/2022 96.3 kg (212 lb 3.2 oz) 07/30/2022 96.2 kg (212 lb) 06/21/2022 93 kg (205 lb) General Appearance: Well appearing, alert, in no acute distress, well-hydrated, well nourished.. Neck: Supple, no adenopathy; thyroid symmetric, normal size, no bruits. Lungs: Lungs clear to auscultation. No wheezing, rhonchi, rales.. Heart: RRR without murmur, gallop, or rubs. No ectopy. Abdomen: Normal abdominal exam, Abdomen soft, non-tender. Bowel sounds normal. No masses, organomegaly. Extremities: No deformities, edema, skin discoloration, clubbing or cyanosis. Good capillary refill. . Musculoskeletal: Muscular strength intact, No joint swelling, deformity, or tenderness. Peripheral Pulses: Normal. Neurologic: Gait normal. . Sensation to light touch and crainal nerves 2-12 intact.. Health Maintenance List ADVANCE DIRECTIVE DISCUSSION due on 08/04/2022 DEPRESSION ASSESSMENT due on 08/04/2022 BP CONTROLLED (<130/80) due on 12/12/2022 COVID-19 VACCINE(3 - Booster for Pfizer series) due on 07/30/2023 ANNUAL PCP TEAM CHRONIC DISEASE VISIT due on 10/12/2023 DIABETES SCREEN due on 06/19/2025 COLORECTAL CANCER SCREENING due on 10/11/2027 DTAP,TDAP,TD(4 - Td or Tdap) due on 10/10/2029 INFLUENZA Completed HEPATITIS C SCREENING Completed SHINGRIX VACCINE Completed PNEUMOCOCCAL: 65+ Completed Data reviewed Component Latest Ref Rng & Units 06/19/2022 10/11/2022 01/27/2023 WBC 3.70 - 11.00 k/uL 5.88 RBC 4.20 - 6.00 m/uL 4.30 Hemoglobin 13.0 - 17.0 g/dL 13.5 Hematocrit 39.0 - 51.0 % 40.2 MCV 80.0 - 100.0 fL 93.5 MCH 26.0 - 34.0 pg 31.4 MCHC 30.5 - 36.0 g/dL 33.6 RDW-CV 11.5 - 15.0 % 12.2 Platelet Count 150 - 400 k/uL 335 MPV 9.0 - 12.7 fL 10.4 Neut% % 54.1 Abs Neut (ANC) 1.45 - 7.50 k/uL 3.18 Lymph% % 32.0 Abs Lymph 1.00 - 4.00 k/uL 1.88 [place]% % 8.8 Abs [place] <0.87 k/uL 0.52 Eosin% % 1.9 Abs Eosin <0.46 k/uL 0.11 Baso% % 1.5 Abs Baso <0.11 k/uL 0.09 Immature Gran % % 1.7 IMMATURE GRANS (ABS) <0.10 k/uL 0.10 (H) NRBC /100 WBC 0.0 Absolute nRBC <0.01 k/uL <0.01 DTYPE Auto Protein, Total 6.3 - 8.0 g/dL 7.5 7.0 Albumin 3.9 - 4.9 g/dL 3.9 3.8 (L) Calcium 8.5 - 10.2 mg/dL 8.6 Bilirubin, Total 0.2 - 1.3 mg/dL 0.4 0.5 Alkaline Phosphatase 38 - 113 U/L 76 62 AST 14 - 40 U/L 16 21 ALT 10 - 54 U/L 11 14 Glucose 74 - 99 mg/dL 104 (H) BUN 9 - 24 mg/dL 19 Creatinine 0.73 - 1.22 mg/dL 0.82 Sodium 136 - 144 mmol/L 138 Potassium 3.7 - 5.1 mmol/L 4.3 Chloride 97 - 105 mmol/L 105 CO2 22 - 30 mmol/L 25 Anion Gap 9 - 18 mmol/L 8 (L) eGFR >=60 mL/min/1.73m 92 Total Cholesterol, Nonfasting <200 mg/dL 142 223 (H) Triglycerides, Nonfasting <150 mg/dL 71 106 HDL Cholesterol, Nonfasting >39 mg/dL 40 45 LDL Cholesterol, Nonfasting <100 mg/dL 88 157 (H) Non HDL Cholesterol, Nonfasting <130 mg/dL 102 178 (H) VLDL Cholesterol, Nonfasting <30 mg/dL 14 21 Total Chol/HDL Ratio, Nonfasting <5.10 mg/dL 3.55 4.96 LDL/HDL Ratio, Nonfasting <2.54 mg/dL 2.20 3.49 (H) Bilirubin, Conjug <0.2 mg/dL <0.2 Hemoglobin A1C 4.3 - 5.6 % 5.5 Estimated Average Glucose mg/dL 111 TSH 0.270 - 4.200 mIU/L 2.680 A/P ASSESSMENT/PLAN: 1. Hypertension, essential - ICD9: 401.9, ICD10: I10 (primary diagnosis) - Controlled - Continue current medications - Recommend home blood pressure monitoring, to bring results to next visit - Encouraged sodium restriction, DASH or Mediterranean diet - Recommend regular aerobic exercise 2. Hyperlipidemia, mixed - ICD9: 272.2, ICD10: E78.2 - Uncontrolled - Worsening control - patient to restart the lipitor 20 mg at 1/2 a tab every other day. - Counseled on healthy diet and regular exercise 3. Elevated blood sugar - ICD9: 790.29, ICD10: R73.9 - managed through life style changes. 4. Obesity, Class I, BMI 30-34.9 - ICD9: 278.00, ICD10: E66.9 Stable - Behavioral intervention 5. BPH with obstruction/lower urinary tract symptoms - ICD9: 600.01, 599.69, ICD10: N40.1, N13.8 - will try finasteride 5 mg a day. 6. Primary osteoarthritis, unspecified site - ICD9: 715.10, ICD10: M19.91 - Voltaren gel to hip. Discussed use. 7. Advance directive discussed with patient - ICD9: V65.49, ICD10: Z71.89 - patient to bring in copies. Requested Prescriptions Signed Prescriptions Disp Refills finasteride (PROSCAR) 5 mg tablet 90 tablet 1 Sig: Take 1 tablet by mouth once daily. diclofenac (VOLTAREN ARTHRITIS PAIN) 1 % topical gel 450 g 1 Sig: Apply 4 g to affected area four times daily. Max of 16 g joint in 24 hrs and max of 32 g total in 24 hrs. F/u 5 months extensive check CMP, Lipid, UA, A1c, CBC, PSA prior I spent a total of 38 minutes on the date of the service which included preparing to see the patient, [id number] patient care, completing clinical documentation, performing a medically appropriate examination, counseling and educating the patient/family/caregiver and ordering medications, tests, or procedures. Lila Kramer MD documented in this encounter [facility] 01-28-2023 Instructions Lila Kramer MD - 01/28/2023 8:47 AM EDT Please bring in copies of your power of securities attorney for health care and living will. Start taking the lipitor 20 mg 1/2 a tab every other day. Please get labs and urine test done on or after 06/04/2023 prior to your next visit. documented in this encounter [facility] 01-06-2023 Miscellaneous Notes Patient has been identified by name and date of : Yes Patient phones for refill(s): Requested Prescriptions Pending Prescriptions Disp Refills losartan (COZAAR) 100 mg tablet 90 tablet 1 Sig: Take 1 tablet by mouth once daily. Date of last office visit in primary care: [facility] 10/11/22 Appointment scheduled 01/28/23 Last 2 Encounter Wt Readings: Date: Wt: 10/11/2022 95.3 kg (210 lb) 09/19/2022 96.3 kg (212 lb 3.2 oz) Please advise. Thank you. AYESHA Saldaña documented in this encounter [facility] 10-11-2022 Note HNO ID: [id number] Author: Karen Bliss, PA-C Service: ? Author Type: Physician Irradiated Fuel Handler Type: Progress Notes Filed: 10/11/2022 1:15 PM Note Text: Chief Complaint Patient presents with: Palpitations: Irregular heart beat HPI Amado Hart is a 77 year old male who presents here today for Above Complaints.. Patient had Colonoscopy yesterday and was told he had multiple PVCs. Patient states he does get palpitations infrequently but states he drinks 6+ cups of coffee a day. He denies chest pain or shortness of breath. No lightheadedness. Past medical history, appointments, medications, allergies reviewed. 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 Judson LAMBERT (erectile dysfunction) 03/30/2013 Elevated blood sugar 06/14/2021 Ex-smoker 06/14/2021 Family history of colon cancer 06/21/2022 Family history of malignant neoplasm lung ca Hyperlipidemia, mixed 07/13/2013 Hypertension, essential 09/26/[address] 06/21/2022 DPA: Bibiana () Medicare annual wellness visit, subsequent 06/14/2021 Medicare Part B: 2011 Last Done: 06/14/2021 Obesity, Class I, BMI 30-34.9 10/04/2019 Pruritus ani 12/27/2010 Previous Surgical History PAST SURGICAL HISTORY Procedure Laterality Date COLONOSCOPY FLX DX W/COLLJ SPEC WHEN PFRMD 2001 Colonoscopy COLONOSCOPY FLX DX W/COLLJ SPEC WHEN PFRMD 10/28/2006 Colonoscopy-repeat in COLONOSCOPY FLX DX W/COLLJ SPEC WHEN PFRMD 02/25/2012 Colonoscopy COLONOSCOPY FLX DX W/COLLJ SPEC WHEN PFRMD 07/08/2017 Colonoscopy ESOPHAGOGASTRODUODENOSCOPY TRANSORAL DIAGNOSTIC 10/28/2006 EGD NEUROPLASTY AND/TRANSPOS MEDIAN NRV CARPAL TUNNE Bilateral 04/20/2020 Bilateral carpal tunnel release TONSILLECTOMY HX Family History FAMILY HISTORY Problem Relation Age of Onset Cancer Mother lung Cancer Father COLON None Sister None Brother Diabetes Brother Patient Allergies ALLERGIES Allergen Reactions Doxycycline Monohyd* Other: See Comments Weakness, sweating Lisinopril Cough Zocor [Simvastatin] Myalgia Current Medications Current Outpatient Medications on File Prior to Visit Medication Sig docosahexaenoic acid/epa (FISH OIL ORAL) Take by mouth once daily. cholecalciferol, vitamin D3, (VITAMIN D3 ORAL) Take 2 tablets by mouth once daily. atorvastatin (LIPITOR) 20 mg tablet Take 1 tablet by mouth daily at bedtime. For cholesterol. losartan (COZAAR) 100 mg tablet Take 1 tablet by mouth once daily. EFFEXOR 25 MG TAB Take one(1) tablet twice daily. No current facility-administered medications on file prior to visit. Social History Social History Tobacco Use Smoking status: Former Types: Cigarettes Smokeless tobacco: Never Tobacco comments: quit 1969 Vaping Use Vaping Use: Never used Substance Use Topics Alcohol use: No Drug use: No Review of Symptoms REVIEW OF SYSTEMS See hpi EXAM: BP 136/78 Pulse 83 Resp 16 Wt 95.3 kg (210 lb) SpO2 97% BMI 31.47 kg/m? General Appearance: Well appearing, alert, in no acute distress, well-hydrated, well nourished.. Lungs: Lungs clear to auscultation. No wheezing, rhonchi, rales.. Heart: RRR without murmur, gallop, or rubs. No ectopy. Health Maintenance List ADVANCE DIRECTIVE DISCUSSION due on 08/04/2022 DEPRESSION ASSESSMENT due on 08/04/2022 COVID-19 VACCINE(3 - Booster for Pfizer series) due on 07/30/2023 BP CONTROLLED (<130/80) due on 12/12/2022 ANNUAL PCP TEAM CHRONIC DISEASE VISIT due on 07/30/2023 DIABETES SCREEN due on 06/19/2025 DTAP,TDAP,TD(4 - Td or Tdap) due on 10/10/2029 INFLUENZA Completed HEPATITIS C SCREENING Completed SHINGRIX VACCINE Completed PNEUMOCOCCAL: 65+ Completed Data reviewed ECG: Sinus rhythm with occasional PVCs. ASSESSMENT/PLAN: 1. Palpitations - ICD9: 785.1, ICD10: R00.2 (primary diagnosis) Likely related to heavy caffeine use. Discussed options. Will check TSH. Patient will decrease caffeine. Discussed possible red flags and when to seek medical attention. - ECG COMPLETE - TSH BLD 2. PVC (premature ventricular contraction) - ICD9: 427.69, ICD10: I49.3 As above. - TSH BLD Karen Bliss PA-C [facility] 10-11-2022 Instructions Karen Bliss PA-C - 10/11/2022 1:04 PM EST Work on decreasing caffeine. Let us know if anything worsens though. documented in this encounter [facility] 10-11-2022 History of Presen t illness Narrative Chief Complaint Patient presents with: Palpitations: Irregular heart beat HPI Amado Hart is a 77 year old male who presents here today for Above Complaints.. Patient had Colonoscopy yesterday and was told he had multiple PVCs. Patient states he does get palpitations infrequently but states he drinks 6+ cups of coffee a day. He denies chest pain or shortness of breath. No lightheadedness. Past medical history, appointments, medications, allergies reviewed. 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 Judson LAMBERT (erectile dysfunction) 03/30/2013 Elevated blood sugar 06/14/2021 Ex-smoker 06/14/2021 Family history of colon cancer 06/21/2022 Family history of malignant neoplasm lung ca Hyperlipidemia, mixed 07/13/2013 Hypertension, essential 09/26/[address] 06/21/2022 DPA: Bibiana () Medicare annual wellness visit, subsequent 06/14/2021 Medicare Part B: 2011 Last Done: 06/14/2021 Obesity, Class I, BMI 30-34.9 10/04/2019 Pruritus ani 12/27/2010 Previous Surgical History PAST SURGICAL HISTORY Procedure Laterality Date COLONOSCOPY FLX DX W/COLLJ SPEC WHEN PFRMD 2001 Colonoscopy COLONOSCOPY FLX DX W/COLLJ SPEC WHEN PFRMD 10/28/2006 Colonoscopy-repeat in COLONOSCOPY FLX DX W/COLLJ SPEC WHEN PFRMD 02/25/2012 Colonoscopy COLONOSCOPY FLX DX W/COLLJ SPEC WHEN PFRMD 07/08/2017 Colonoscopy ESOPHAGOGASTRODUODENOSCOPY TRANSORAL DIAGNOSTIC 10/28/2006 EGD NEUROPLASTY &/TRANSPOS MEDIAN NRV CARPAL TUNNE Bilateral 04/20/2020 Bilateral carpal tunnel release TONSILLECTOMY HX Family History FAMILY HISTORY Problem Relation Age of Onset Cancer Mother lung Cancer Father COLON None Sister None Brother Diabetes Brother Patient Allergies ALLERGIES Allergen Reactions Doxycycline Monohyd* Other: See Comments Weakness, sweating Lisinopril Cough Zocor [Simvastatin] Myalgia Current Medications Current Outpatient Medications on File Prior to Visit Medication Sig docosahexaenoic acid/epa (FISH OIL ORAL) Take by mouth once daily. cholecalciferol, vitamin D3, (VITAMIN D3 ORAL) Take 2 tablets by mouth once daily. atorvastatin (LIPITOR) 20 mg tablet Take 1 tablet by mouth daily at bedtime. For cholesterol. losartan (COZAAR) 100 mg tablet Take 1 tablet by mouth once daily. EFFEXOR 25 MG TAB Take one(1) tablet twice daily. No current facility-administered medications on file prior to visit. Social History Social History Tobacco Use Smoking status: Former Types: Cigarettes Smokeless tobacco: Never Tobacco comments: quit 1969 s Vaping Use Vaping Use: Never used Substance Use Topics Alcohol use: No Drug use: No Review of Symptoms REVIEW OF SYSTEMS See hpi EXAM: BP 136/78 Pulse 83 Resp 16 Wt 95.3 kg (210 lb) SpO2 97% BMI 31.47 kg/m General Appearance: Well appearing, alert, in no acute distress, well-hydrated, well nourished.. Lungs: Lungs clear to auscultation. No wheezing, rhonchi, rales.. Heart: RRR without murmur, gallop, or rubs. No ectopy. Health Maintenance List ADVANCE DIRECTIVE DISCUSSION due on 08/04/2022 DEPRESSION ASSESSMENT due on 08/04/2022 COVID-19 VACCINE(3 - Booster for Pfizer series) due on 07/30/2023 BP CONTROLLED (<130/80) due on 12/12/2022 ANNUAL PCP TEAM CHRONIC DISEASE VISIT due on 07/30/2023 DIABETES SCREEN due on 06/19/2025 DTAP,TDAP,TD(4 - Td or Tdap) due on 10/10/2029 INFLUENZA Completed HEPATITIS C SCREENING Completed SHINGRIX VACCINE Completed PNEUMOCOCCAL: 65+ Completed Data reviewed ECG: Sinus rhythm with occasional PVCs. ASSESSMENT/PLAN: 1. Palpitations - ICD9: 785.1, ICD10: R00.2 (primary diagnosis) Likely related to heavy caffeine use. Discussed options. Will check TSH. Patient will decrease caffeine. Discussed possible red flags and when to seek medical attention. - ECG COMPLETE - TSH BLD 2. PVC (premature ventricular contraction) - ICD9: 427.69, ICD10: I49.3 As above. - TSH BLD Karen Bliss PA-C documented in this encounter [facility] 10-10-2022 Nurse Note Patient's EKG showed NSR with frequent PVCs. Patient states he is not having any chest pain at this time. Patient's vitals are stable. Patient told that he should follow up with PCP concerning findings. Patient verbalized understanding. Patient's heart rate appears to be periodically dropping from mid 60s to low 40s. Dr. Mcdonough notified and ordered EKG. Patient arrived laying on left side. Patient states he is not in any pain at this time. Patient's abdomen appears to nondistended and soft to palpation. documented in this encounter [facility] 10-10-2022 History and physical note Images from the original note were not included. HISTORY AND PHYSICAL Amado Hart 1945 REFERRING PHYSICIAN: Lila Kramer MD CHIEF COMPLAINT: Consult (Colonoscopy consult) HPI: The patient is a 76 year old male referred for endoscopy. Amado notes no colon complaints. Patient denies any change in bowel habits, weight changes, blood in stools, black tarry stools or abdominal pain. NOTES family history of colon cancer. The patient notes no upper GI complaints. Amado has undergone prior endoscopy. Last colonoscopy 07/08/[address] Doshi under conscious sedation. Findings showed diverticulosis, otherwise normal. Repeat colonoscopy was recommended in 5 years. Patient denies chest pain, shortness of breath or recent hospitalizations. Denies problems with sedation in the past. 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 Judson LAMBERT (erectile dysfunction) 03/30/2013 Elevated blood sugar 06/14/2021 Ex-smoker 06/14/2021 Family history of colon cancer 06/21/2022 Family history of malignant neoplasm lung ca Hyperlipidemia, mixed 07/13/2013 Hypertension, essential 09/26/[address] 06/21/2022 DPA: Bibiana () Medicare annual wellness visit, subsequent 06/14/2021 Medicare Part B: 2011 Last Done: 06/14/2021 Obesity, Class I, BMI 30-34.9 10/04/2019 Pruritus ani 12/27/2010 PAST SURGICAL HISTORY PAST SURGICAL HISTORY Procedure Laterality Date COLONOSCOPY FLX DX W/COLLJ SPEC WHEN PFRMD 2001 Colonoscopy COLONOSCOPY FLX DX W/COLLJ SPEC WHEN PFRMD 10/28/2006 Colonoscopy-repeat in -2011 COLONOSCOPY FLX DX W/COLLJ SPEC WHEN PFRMD 02/25/2012 Colonoscopy COLONOSCOPY FLX DX W/COLLJ SPEC WHEN PFRMD 07/08/2017 Colonoscopy ESOPHAGOGASTRODUODENOSCOPY TRANSORAL DIAGNOSTIC 10/28/2006 EGD NEUROPLASTY &/TRANSPOS MEDIAN NRV CARPAL TUNNE Bilateral 04/20/2020 Bilateral carpal tunnel release CURRENT MEDICATIONS Current Outpatient Medications Medication Sig docosahexaenoic acid/epa (FISH OIL ORAL) Take by mouth once daily. cholecalciferol, vitamin D3, (VITAMIN D3 ORAL) Take 2 tablets by mouth once daily. atorvastatin (LIPITOR) 20 mg tablet Take 1 tablet by mouth daily at bedtime. For cholesterol. losartan (COZAAR) 100 mg tablet Take 1 tablet by mouth once daily. EFFEXOR 25 MG TAB Take one(1) tablet twice daily. No current facility-administered medications for this visit. ALLERGIES: Doxycycline Monohydrate, Lisinopril, and Zocor [Simvastatin] PERSONAL HISTORY: SOCIAL HISTORY Social History Tobacco Use Smoking status: Former Smokeless tobacco: Never Tobacco comments: quit 1969 Vaping Use Vaping Use: Never used Substance Use Topics Alcohol use: No Drug use: No FAMILY HISTORY: FAMILY HISTORY FAMILY HISTORY Problem Relation Age of Onset Cancer Mother lung Cancer Father COLON None Sister None Brother Diabetes Brother REVIEW OF SYMPTOMS: The review of systems data was entered by the nurse and reviewed by tx Nursing Notes: Batsheva Orozco RN 09/19/2022 10:37 AM Signed REVIEW OF SYSTEMS: General: The patient denies fatigue, denies weight loss, denies weight gain, denies feeling hot, and denies feelings of cold. Eyes: The patient denies glaucoma, denies eye injury/surgery, wears glasses or contacts. Ear/Nose/Throat: The patient NOTES allergies, denies hayfever, denies ear infections, and denies bloody noses. Cardiovascular: The patient denies chest pain, denies heart disease, NOTES high blood pressure,denies cardiac stent, denies prior heart attack, denies irregular heart beat, NOTES high cholesterol, denies poor circulation, denies heart failure, other cardiac issues, denies claudication, denies cold feet, denies peripheral arterial stent. Respiratory: The patient denies tuberculosis, denies pneumonia, denies frequent cough, denies pulmonary embolism, denies shortness of breath, and denies coughing up blood. Gastrointestinal: The patient denies difficulty swallowing, denies acid reflux, denies ulcers, denies vomiting, denies jaundice/hepatitis, denies gallbladder problems, denies black or tarry stools, denies hemorrhoids, denies bleeding from rectum, denies diverticulitis, denies constipation, denies diarrhea, denies loss of stool control, and denies hernias. Kidney/Bladder: The patient denies kidney stones, denies urine infections, and denies bloody urine. Skin: The patient denies a history of skin cancer, denies bleeding/changing moles, and denies a history of skin rash. Neurologic: The patient denies a history of epilepsy/convulsions, denies headaches, denies head/spinal injuries, and denies stroke/TIA. Psychiatric: The patient denies psychiatric medications, denies depression, and denies voices, denies substance abuse. Endocrine: The patient denies thyroid disorders, denies diabetes, and denies hormonal problems. Hematologic: The patient denies a history of bruising, denies bleeding, and denies anemia, denies blood clots. Infections: The patient denies a history of measles and mumps, denies rheumatic fever, and denies sexually transmitted diseases. Musculoskeletal: The patient NOTES back pain/injury, NOTES back problems, denies sciatica, denies knee/foot trouble, denies arthritis, or denies gout. When was patient's last Mammogram screening? N/A Last Colonoscopy: 07/08/2017 Batsheva Orozco RN I have confirmed and edited as necessary, the PFSH and ROS obtained by others. Maria T Monroe PA-C PHYSICAL EXAMINATION: General: The patient is 76 year old male, well nourished, well hydrated in no acute distress. The patient is oriented to time, place, and person. VITALS: Blood pressure 140/72, pulse 92, temperature 36.6 C (97.8 F), height 174 cm (5' 8.5 ), weight 96.3 kg (212 lb 3.2 oz), SpO2 99 %. Body mass index is 31.8 kg/m . HEENT: Normal cephalic, ataumatic, pupils are equally round, sclera are anicteric, mucous membranes are moist, oropharynx is clear. Neck has no masses, asymmetry or lymphadenopathy. Respiratory: Clear to auscultation and percussion. Normal respiratory excursion and pattern. Cardiac: Examination is regular rate and rhythm. Normal S1/S2 Abdominal exam: Soft, nontender, with no palpable masses. No hepatosplenomegaly. No palpable hernias. Extremities: no clubbing, cyanosis or edema. No adenopathy. LABORATORY VALUES: As Noted RADIOLOGIC STUDIES: As Noted Assessment IMPRESSION: encounter for high-risk screening colonoscopy due to family history of colon cancer PLAN: I have reviewed my findings with the surgeon. Will plan for lower endoscopy. We discussed the risks and benefits of the planned endoscopy. I have informed the patient that complications can occur including failure to complete the endoscopy and perforation. The patient had the opportunity to ask questions concerning the planned endoscopy. My staff has also explained the procedure to the patient in understandable terms and has given the patient printed material concerning the procedure. The patient freely consents to surgery. The patient was offered a surgery/procedure at a [facility] facility. I have counseled the patient regarding the risk of exposure to and/or potential harm posed by the COVID-19 virus with having a surgery/procedure at this time versus the risk of delaying the surgery/procedure. It is not possible to know either the risk of delaying the surgery or procedure or chance of getting an infection with perfect accuracy, but a joint decision was made between the patient and myself to proceed at this time with endoscopy. I plan to use Golytely bowel preparation Diagnoses: (Z80.0) Family history of colon cancer (Z12.11) Screening for colon cancer Consultation requested by Dr. Kramer for an opinion regarding screening colonoscopy. My final recommendations will be communicated back to the requesting physician by way of shared Medical record or letter to requesting physician via US mail. Maria T Monroe PA-C UPDATED HISTORY AND PHYSICAL EXAMINATION SERVICE DATE: 10/10/2022 SERVICE TIME: 8:38 AM PHYSICAL EXAM MUST BE COMPLETED ON ADMISSION The History and Physical (completed in the past 30 days) has been reviewed and the patient has been examined. The contents accurately reflect the patient's condition with the following additions or revisions since the H&P was completed. Examination indicates no changes. This H&P can be found in the attached. SIGNATURE: Jaspal Mcdonough III, MD PATIENT NAME: Amado Hart DATE: October 10, 2022 TIME: 8:38 AM documented in this encounter [facility] 09-19-2022 Note HNO ID: [id number] Author: Maria T Monroe PA-C Service: ? Author Type: Physician Irradiated Fuel Handler Type: Progress Notes Filed: 09/24/2022 4:43 PM Note Text: HISTORY AND PHYSICAL Amado Hart 1945 REFERRING PHYSICIAN: Lila Kramer MD CHIEF COMPLAINT: Consult (Colonoscopy consult) HPI: The patient is a 76 year old male referred for endoscopy. Amado notes no colon complaints. Patient denies any change in bowel habits, weight changes, blood in stools, black tarry stools or abdominal pain. NOTES family history of colon cancer. The patient notes no upper GI complaints. Amado has undergone prior endoscopy. Last colonoscopy 07/08/[address] Doshi under conscious sedation. Findings showed diverticulosis, otherwise normal. Repeat colonoscopy was recommended in 5 years. Patient denies chest pain, shortness of breath or recent hospitalizations. Denies problems with sedation in the past. 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 Judson LAMBERT (erectile dysfunction) 03/30/2013 Elevated blood sugar 06/14/2021 Ex-smoker 06/14/2021 Family history of colon cancer 06/21/2022 Family history of malignant neoplasm lung ca Hyperlipidemia, mixed 07/13/2013 Hypertension, essential 09/26/[address] 06/21/2022 DPA: Bibiana () Medicare annual wellness visit, subsequent 06/14/2021 Medicare Part B: 2011 Last Done: 06/14/2021 Obesity, Class I, BMI 30-34.9 10/04/2019 Pruritus ani 12/27/2010 PAST SURGICAL HISTORY Procedure Laterality Date COLONOSCOPY FLX DX W/COLLJ SPEC WHEN PFRMD 2001 Colonoscopy COLONOSCOPY FLX DX W/COLLJ SPEC WHEN PFRMD 10/28/2006 Colonoscopy-repeat in COLONOSCOPY FLX DX W/COLLJ SPEC WHEN PFRMD 02/25/2012 Colonoscopy COLONOSCOPY FLX DX W/COLLJ SPEC WHEN PFRMD 07/08/2017 Colonoscopy ESOPHAGOGASTRODUODENOSCOPY TRANSORAL DIAGNOSTIC 10/28/2006 EGD NEUROPLASTY AND/TRANSPOS MEDIAN NRV CARPAL TUNNE Bilateral 04/20/2020 Bilateral carpal tunnel release Current Outpatient Medications Medication Sig docosahexaenoic acid/epa (FISH OIL ORAL) Take by mouth once daily. cholecalciferol, vitamin D3, (VITAMIN D3 ORAL) Take 2 tablets by mouth once daily. atorvastatin (LIPITOR) 20 mg tablet Take 1 tablet by mouth daily at bedtime. For cholesterol. losartan (COZAAR) 100 mg tablet Take 1 tablet by mouth once daily. EFFEXOR 25 MG TAB Take one(1) tablet twice daily. No current facility-administered medications for this visit. ALLERGIES: Doxycycline Monohydrate, Lisinopril, and Zocor [Simvastatin] PERSONAL HISTORY: Social History Tobacco Use Smoking status: Former Smokeless tobacco: Never Tobacco comments: quit 1969 Vaping Use Vaping Use: Never used Substance Use Topics Alcohol use: No Drug use: No FAMILY HISTORY: FAMILY HISTORY Problem Relation Age of Onset Cancer Mother lung Cancer Father COLON None Sister None Brother Diabetes Brother REVIEW OF SYMPTOMS: The review of systems data was entered by the nurse and reviewed by tx Nursing Notes: Batsheva Orozco RN 09/19/2022 10:37 AM Signed REVIEW OF SYSTEMS: General: The patient denies fatigue, denies weight loss, denies weight gain, denies feeling hot, and denies feelings of cold. Eyes: The patient denies glaucoma, denies eye injury/surgery, wears glasses or contacts. Ear/Nose/Throat: The patient NOTES allergies, denies hayfever, denies ear infections, and denies bloody noses. Cardiovascular: The patient denies chest pain, denies heart disease, NOTES high blood pressure,denies cardiac stent, denies prior heart attack, denies irregular heart beat, NOTES high cholesterol, denies poor circulation, denies heart failure, other cardiac issues, denies claudication, denies cold feet, denies peripheral arterial stent. Respiratory: The patient denies tuberculosis, denies pneumonia, denies frequent cough, denies pulmonary embolism, denies shortness of breath, and denies coughing up blood. Gastrointestinal: The patient denies difficulty swallowing, denies acid reflux, denies ulcers, denies vomiting, denies jaundice/hepatitis, denies gallbladder problems, denies black or tarry stools, denies hemorrhoids, denies bleeding from rectum, denies diverticulitis, denies constipation, denies diarrhea, denies loss of stool control, and denies hernias. Kidney/Bladder: The patient denies kidney stones, denies urine infections, and denies bloody urine. Skin: The patient denies a history of skin cancer, denies bleeding/changing moles, and denies a history of skin rash. Neurolog (more content not included)... [facility] 09-19-2022 History of Presen t illness Narrative HISTORY AND PHYSICAL Amado Hart 1945 REFERRING PHYSICIAN: Lila Kramer MD CHIEF COMPLAINT: Consult (Colonoscopy consult) HPI: The patient is a 76 year old male referred for endoscopy. Amado notes no colon complaints. Patient denies any change in bowel habits, weight changes, blood in stools, black tarry stools or abdominal pain. NOTES family history of colon cancer. The patient notes no upper GI complaints. Amado has undergone prior endoscopy. Last colonoscopy 07/08/[address] Doshi under conscious sedation. Findings showed diverticulosis, otherwise normal. Repeat colonoscopy was recommended in 5 years. Patient denies chest pain, shortness of breath or recent hospitalizations. Denies problems with sedation in the past. 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 Judson LAMBERT (erectile dysfunction) 03/30/2013 Elevated blood sugar 06/14/2021 Ex-smoker 06/14/2021 Family history of colon cancer 06/21/2022 Family history of malignant neoplasm lung ca Hyperlipidemia, mixed 07/13/2013 Hypertension, essential 09/26/[address] 06/21/2022 DPA: Bibiana () Medicare annual wellness visit, subsequent 06/14/2021 Medicare Part B: 2011 Last Done: 06/14/2021 Obesity, Class I, BMI 30-34.9 10/04/2019 Pruritus ani 12/27/2010 PAST SURGICAL HISTORY Procedure Laterality Date COLONOSCOPY FLX DX W/COLLJ SPEC WHEN PFRMD 2001 Colonoscopy COLONOSCOPY FLX DX W/COLLJ SPEC WHEN PFRMD 10/28/2006 Colonoscopy-repeat in COLONOSCOPY FLX DX W/COLLJ SPEC WHEN PFRMD 02/25/2012 Colonoscopy COLONOSCOPY FLX DX W/COLLJ SPEC WHEN PFRMD 07/08/2017 Colonoscopy ESOPHAGOGASTRODUODENOSCOPY TRANSORAL DIAGNOSTIC 10/28/2006 EGD NEUROPLASTY &/TRANSPOS MEDIAN NRV CARPAL TUNNE Bilateral 04/20/2020 Bilateral carpal tunnel release Current Outpatient Medications Medication Sig docosahexaenoic acid/epa (FISH OIL ORAL) Take by mouth once daily. cholecalciferol, vitamin D3, (VITAMIN D3 ORAL) Take 2 tablets by mouth once daily. atorvastatin (LIPITOR) 20 mg tablet Take 1 tablet by mouth daily at bedtime. For cholesterol. losartan (COZAAR) 100 mg tablet Take 1 tablet by mouth once daily. EFFEXOR 25 MG TAB Take one(1) tablet twice daily. No current facility-administered medications for this visit. ALLERGIES: Doxycycline Monohydrate, Lisinopril, and Zocor [Simvastatin] PERSONAL HISTORY: Social History Tobacco Use Smoking status: Former Smokeless tobacco: Never Tobacco comments: quit 1969 s Vaping Use Vaping Use: Never used Substance Use Topics Alcohol use: No Drug use: No FAMILY HISTORY: FAMILY HISTORY Problem Relation Age of Onset Cancer Mother lung Cancer Father COLON None Sister None Brother Diabetes Brother REVIEW OF SYMPTOMS: The review of systems data was entered by the nurse and reviewed by tx Nursing Notes: Batsheva Orozco RN 09/19/2022 10:37 AM Signed REVIEW OF SYSTEMS: General: The patient denies fatigue, denies weight loss, denies weight gain, denies feeling hot, and denies feelings of cold. Eyes: The patient denies glaucoma, denies eye injury/surgery, wears glasses or contacts. Ear/Nose/Throat: The patient NOTES allergies, denies hayfever, denies ear infections, and denies bloody noses. Cardiovascular: The patient denies chest pain, denies heart disease, NOTES high blood pressure,denies cardiac stent, denies prior heart attack, denies irregular heart beat, NOTES high cholesterol, denies poor circulation, denies heart failure, other cardiac issues, denies claudication, denies cold feet, denies peripheral arterial stent. Respiratory: The patient denies tuberculosis, denies pneumonia, denies frequent cough, denies pulmonary embolism, denies shortness of breath, and denies coughing up blood. Gastrointestinal: The patient denies difficulty swallowing, denies acid reflux, denies ulcers, denies vomiting, denies jaundice/hepatitis, denies gallbladder problems, denies black or tarry stools, denies hemorrhoids, denies bleeding from rectum, denies diverticulitis, denies constipation, denies diarrhea, denies loss of stool control, and denies hernias. Kidney/Bladder: The patient denies kidney stones, denies urine infections, and denies bloody urine. Skin: The patient denies a history of skin cancer, denies bleeding/changing moles, and denies a history of skin rash. Neurologic: The patient denies a history of epilepsy/convulsions, denies headaches, denies head/spinal injuries, and denies stroke/TIA. Psychiatric: The patient denies psychiatric medications, denies depression, and denies voices, denies substance abuse. Endocrine: The patient denies thyroid disorders, denies diabetes, and denies hormonal problems. Hematologic: The patient denies a history of bruising, denies bleeding, and denies anemia, denies blood clots. Infections: The patient denies a history of measles and mumps, denies rheumatic fever, and denies sexually transmitted diseases. Musculoskeletal: The patient NOTES back pain/injury, NOTES back problems, denies sciatica, denies knee/foot trouble, denies arthritis, or denies gout. When was patient's last Mammogram screening? N/A Last Colonoscopy: 07/08/2017 Batsheva Orozco RN I have confirmed and edited as necessary, the PFSH and ROS obtained by others. Maria T Monroe PA-C PHYSICAL EXAMINATION: General: The patient is 76 year old male, well nourished, well hydrated in no acute distress. The patient is oriented to time, place, and person. VITALS: Blood pressure 140/72, pulse 92, temperature 36.6 C (97.8 F), height 174 cm (5' 8.5 ), weight 96.3 kg (212 lb 3.2 oz), SpO2 99 %. Body mass index is 31.8 kg/m . HEENT: Normal cephalic, ataumatic, pupils are equally round, sclera are anicteric, mucous membranes are moist, oropharynx is clear. Neck has no masses, asymmetry or lymphadenopathy. Respiratory: Clear to auscultation and percussion. Normal respiratory excursion and pattern. Cardiac: Examination is regular rate and rhythm. Normal S1/S2 Abdominal exam: Soft, nontender, with no palpable masses. No hepatosplenomegaly. No palpable hernias. Extremities: no clubbing, cyanosis or edema. No adenopathy. LABORATORY VALUES: As Noted RADIOLOGIC STUDIES: As Noted Assessment IMPRESSION: encounter for high-risk screening colonoscopy due to family history of colon cancer PLAN: I have reviewed my findings with the surgeon. Will plan for lower endoscopy. We discussed the risks and benefits of the planned endoscopy. I have informed the patient that complications can occur including failure to complete the endoscopy and perforation. The patient had the opportunity to ask questions concerning the planned endoscopy. My staff has also explained the procedure to the patient in understandable terms and has given the patient printed material concerning the procedure. The patient freely consents to surgery. The patient was offered a surgery/procedure at a [facility] facility. I have counseled the patient regarding the risk of exposure to and/or potential harm posed by the COVID-19 virus with having a surgery/procedure at this time versus the risk of delaying the surgery/procedure. It is not possible to know either the risk of delaying the surgery or procedure or chance of getting an infection with perfect accuracy, but a joint decision was made between the patient and myself to proceed at this time with endoscopy. I plan to use Golytely bowel preparation Diagnoses: (Z80.0) Family history of colon cancer (Z12.11) Screening for colon cancer Consultation requested by Dr. Kramer for an opinion regarding screening colonoscopy. My final recommendations will be communicated back to the requesting physician by way of shared Medical record or letter to requesting physician via US mail. Maria T Monroe PA-C documented in this encounter [facility] 09-19-2022 Nurse Note REVIEW OF SYSTEMS: General: The patient denies fatigue, denies weight loss, denies weight gain, denies feeling hot, and denies feelings of cold. Eyes: The patient denies glaucoma, denies eye injury/surgery, wears glasses or contacts. Ear/Nose/Throat: The patient NOTES allergies, denies hayfever, denies ear infections, and denies bloody noses. Cardiovascular: The patient denies chest pain, denies heart disease, NOTES high blood pressure,denies cardiac stent, denies prior heart attack, denies irregular heart beat, NOTES high cholesterol, denies poor circulation, denies heart failure, other cardiac issues, denies claudication, denies cold feet, denies peripheral arterial stent. Respiratory: The patient denies tuberculosis, denies pneumonia, denies frequent cough, denies pulmonary embolism, denies shortness of breath, and denies coughing up blood. Gastrointestinal: The patient denies difficulty swallowing, denies acid reflux, denies ulcers, denies vomiting, denies jaundice/hepatitis, denies gallbladder problems, denies black or tarry stools, denies hemorrhoids, denies bleeding from rectum, denies diverticulitis, denies constipation, denies diarrhea, denies loss of stool control, and denies hernias. Kidney/Bladder: The patient denies kidney stones, denies urine infections, and denies bloody urine. Skin: The patient denies a history of skin cancer, denies bleeding/changing moles, and denies a history of skin rash. Neurologic: The patient denies a history of epilepsy/convulsions, denies headaches, denies head/spinal injuries, and denies stroke/TIA. Psychiatric: The patient denies psychiatric medications, denies depression, and denies voices, denies substance abuse. Endocrine: The patient denies thyroid disorders, denies diabetes, and denies hormonal problems. Hematologic: The patient denies a history of bruising, denies bleeding, and denies anemia, denies blood clots. Infections: The patient denies a history of measles and mumps, denies rheumatic fever, and denies sexually transmitted diseases. Musculoskeletal: The patient NOTES back pain/injury, NOTES back problems, denies sciatica, denies knee/foot trouble, denies arthritis, or denies gout. When was patient's last Mammogram screening? N/A Last Colonoscopy: 07/08/2017 Batsheva Orozco RN documented in this encounter [facility] 07-30-2022 Note HNO ID: [id number] Author: Cindy Concepcion MA Service: ? Author Type: Iron Assorter Type: Progress Notes Filed: 07/30/2022 11:06 AM Note Text: BP Manual readin/76 Pulse: 68 LEFT arm LARGE cuff BP Reggie Average: 139/73 Pulse: 67 LEFT arm LARGE cuff 1. 153/86 Pulse: 62 2. 140/74 Pulse: 73 3. 143/74 Pulse: 70 4. 138/72 Pulse: 70 5. 140/77 Pulse: 69 6. 135/69 Pulse: 55 BP REGGIE AVERAGE: 139/73 Pulse: 67 [facility] 07-30-2022 Note HNO ID: [id number] Author: Karen Bliss PA-C Service: ? Author Type: Physician Irradiated Fuel Handler Type: Progress Notes Filed: 07/30/2022 11:06 AM Note Text: Chief Complaint Patient presents with: F/U 6 Month HPI Amado Hart is a 76 year old male who presents here today for recheck BP. Patient was seen 1 month ago and BP was elevated. Patient's losartan dose was increased to 100mg daily. He states he is tolerating medication well. Doesn't check his BP at home often. Last 3 Encounter BP Readings: Date: BP: 07/30/2022 140/76 06/21/2022 151/83 06/09/2022 130/78 Past medical history, appointments, medications, allergies reviewed. 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 Judson LAMBERT (erectile dysfunction) 03/30/2013 Elevated blood sugar 06/14/2021 Ex-smoker 06/14/2021 Family history of colon cancer 06/21/2022 Family history of malignant neoplasm lung ca Hyperlipidemia, mixed 07/13/2013 Hypertension, essential 09/26/[address] 06/21/2022 DPA: Bibiana () Medicare annual wellness visit, subsequent 06/14/2021 Medicare Part B: 2011 Last Done: 06/14/2021 Obesity, Class I, BMI 30-34.9 10/04/2019 Pruritus ani 12/27/2010 Previous Surgical History PAST SURGICAL HISTORY Procedure Laterality Date COLONOSCOPY FLX DX W/COLLJ SPEC WHEN PFRMD 2001 Colonoscopy COLONOSCOPY FLX DX W/COLLJ SPEC WHEN PFRMD 10/28/2006 Colonoscopy-repeat in COLONOSCOPY FLX DX W/COLLJ SPEC WHEN PFRMD 02/25/2012 Colonoscopy COLONOSCOPY FLX DX W/COLLJ SPEC WHEN PFRMD 07/08/2017 Colonoscopy ESOPHAGOGASTRODUODENOSCOPY TRANSORAL DIAGNOSTIC 10/28/2006 EGD NEUROPLASTY AND/TRANSPOS MEDIAN NRV CARPAL TUNNE Bilateral 04/20/2020 Bilateral carpal tunnel release Family History FAMILY HISTORY Problem Relation Age of Onset Cancer Mother lung Cancer Father COLON None Sister None Brother Diabetes Brother Patient Allergies ALLERGIES Allergen Reactions Doxycycline Monohyd* Other: See Comments Weakness, sweating Lisinopril Cough Zocor [Simvastatin] Myalgia Current Medications Current Outpatient Medications on File Prior to Visit Medication Sig atorvastatin (LIPITOR) 20 mg tablet Take 1 tablet by mouth daily at bedtime. For cholesterol. losartan (COZAAR) 100 mg tablet Take 1 tablet by mouth once daily. EFFEXOR 25 MG TAB Take one(1) tablet twice daily. No current facility-administered medications on file prior to visit. Social History Social History Tobacco Use Smoking status: Former Smokeless tobacco: Never Tobacco comments: quit 1969 Vaping Use Vaping Use: Never used Substance Use Topics Alcohol use: No Drug use: No Review of Symptoms REVIEW OF SYSTEMS GENERAL: No weight loss, malaise or fevers RESPIRATORY: Negative for cough, hemoptysis, wheezing, COPD, dyspnea or shortness of breath CARDIOVASCULAR: Negative for chest pain, leg swelling, hypertension, CHF or palpitations EXAM: BP 140/76 Pulse 68 Temp 36.1 ?C (96.9 ?F) (Left Tympanic) Resp 16 Wt 96.2 kg (212 lb) BMI 32.71 kg/m? BP 139/73 Pulse 67 Temp 36.1 ?C (96.9 ?F) (Left Tympanic) Resp 16 Wt 96.2 kg (212 lb) BMI 32.71 kg/m? General Appearance: Well appearing, alert, in no acute distress, well-hydrated, well nourished.. Health Maintenance List COLORECTAL CANCER SCREENING due on 07/08/2022 COVID-19 VACCINE(3 - Booster for Pfizer series) due on 07/30/2023 BP CONTROLLED (<130/80) due on 12/12/2022 ANNUAL PCP TEAM CHRONIC DISEASE VISIT due on 06/21/2023 DIABETES SCREEN due on 06/19/2025 LIPID SCREEN due on 06/19/2027 DTAP,TDAP,TD(4 - Td or Tdap) due on 10/10/2029 INFLUENZA Completed ADVANCE DIRECTIVE DISCUSSION Completed DEPRESSION ASSESSMENT Completed HEPATITIS C SCREENING Completed SHINGRIX VACCINE Completed PNEUMOCOCCAL: 65+ Completed Data reviewed ASSESSMENT/PLAN: 1. Hypertension, essential - ICD9: 401.9, ICD10: I10 - fair control - Continue current medication(s) - Recommended regular aerobic exercise. - Recommend home blood pressure monitoring, to bring results in on next visit - patient will monitor at home - Goal of BP <130/80 Patient to follow up for routine visit as scheduled. Karen Bliss PA-C [facility] 07-30-2022 History of Presen t illness Narrative BP Manual readin/76 Pulse: 68 LEFT arm LARGE cuff BP Reggie Average: 139/73 Pulse: 67 LEFT arm LARGE cuff 1. 153/86 Pulse: 62 2. 140/74 Pulse: 73 3. 143/74 Pulse: 70 4. 138/72 Pulse: 70 5. 140/77 Pulse: 69 6. 135/69 Pulse: 55 BP REGGIE AVERAGE: 139/73 Pulse: 67 Chief Complaint Patient presents with: F/U 6 Month HPI Amado Hart is a 76 year old male who presents here today for recheck BP. Patient was seen 1 month ago and BP was elevated. Patient's losartan dose was increased to 100mg daily. He states he is tolerating medication well. Doesn't check his BP at home often. Last 3 Encounter BP Readings: Date: BP: 07/30/2022 140/76 06/21/2022 151/83 06/09/2022 130/78 Past medical history, appointments, medications, allergies reviewed. 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 [facility] (erectile dysfunction) 03/30/2013 Elevated blood sugar 06/14/2021 Ex-smoker 06/14/2021 Family history of colon cancer 06/21/2022 Family history of malignant neoplasm lung ca Hyperlipidemia, mixed 07/13/2013 Hypertension, essential 09/26/[address] 06/21/2022 DPA: Bibiana () Medicare annual wellness visit, subsequent 06/14/2021 Medicare Part B: 2011 Last Done: 06/14/2021 Obesity, Class I, BMI 30-34.9 10/04/2019 Pruritus ani 12/27/2010 Previous Surgical History PAST SURGICAL HISTORY Procedure Laterality Date COLONOSCOPY FLX DX W/COLLJ SPEC WHEN PFRMD 2001 Colonoscopy COLONOSCOPY FLX DX W/COLLJ SPEC WHEN PFRMD 10/28/2006 Colonoscopy-repeat in COLONOSCOPY FLX DX W/COLLJ SPEC WHEN PFRMD 02/25/2012 Colonoscopy COLONOSCOPY FLX DX W/COLLJ SPEC WHEN PFRMD 07/08/2017 Colonoscopy ESOPHAGOGASTRODUODENOSCOPY TRANSORAL DIAGNOSTIC 10/28/2006 EGD NEUROPLASTY &/TRANSPOS MEDIAN NRV CARPAL TUNNE Bilateral 04/20/2020 Bilateral carpal tunnel release Family History FAMILY HISTORY Problem Relation Age of Onset Cancer Mother lung Cancer Father COLON None Sister None Brother Diabetes Brother Patient Allergies ALLERGIES Allergen Reactions Doxycycline Monohyd* Other: See Comments Weakness, sweating Lisinopril Cough Zocor [Simvastatin] Myalgia Current Medications Current Outpatient Medications on File Prior to Visit Medication Sig atorvastatin (LIPITOR) 20 mg tablet Take 1 tablet by mouth daily at bedtime. For cholesterol. losartan (COZAAR) 100 mg tablet Take 1 tablet by mouth once daily. EFFEXOR 25 MG TAB Take one(1) tablet twice daily. No current facility-administered medications on file prior to visit. Social History Social History Tobacco Use Smoking status: Former Smokeless tobacco: Never Tobacco comments: quit 1969 s Vaping Use Vaping Use: Never used Substance Use Topics Alcohol use: No Drug use: No Review of Symptoms REVIEW OF SYSTEMS GENERAL: No weight loss, malaise or fevers RESPIRATORY: Negative for cough, hemoptysis, wheezing, COPD, dyspnea or shortness of breath CARDIOVASCULAR: Negative for chest pain, leg swelling, hypertension, CHF or palpitations EXAM: BP 140/76 Pulse 68 Temp 36.1 C (96.9 F) (Left Tympanic) Resp 16 Wt 96.2 kg (212 lb) BMI 32.71 kg/m BP 139/73 Pulse 67 Temp 36.1 C (96.9 F) (Left Tympanic) Resp 16 Wt 96.2 kg (212 lb) BMI 32.71 kg/m General Appearance: Well appearing, alert, in no acute distress, well-hydrated, well nourished.. Health Maintenance List COLORECTAL CANCER SCREENING due on 07/08/2022 COVID-19 VACCINE(3 - Booster for Pfizer series) due on 07/30/2023 BP CONTROLLED (<130/80) due on 12/12/2022 ANNUAL PCP TEAM CHRONIC DISEASE VISIT due on 06/21/2023 DIABETES SCREEN due on 06/19/2025 LIPID SCREEN due on 06/19/2027 DTAP,TDAP,TD(4 - Td or Tdap) due on 10/10/2029 INFLUENZA Completed ADVANCE DIRECTIVE DISCUSSION Completed DEPRESSION ASSESSMENT Completed HEPATITIS C SCREENING Completed SHINGRIX VACCINE Completed PNEUMOCOCCAL: 65+ Completed Data reviewed ASSESSMENT/PLAN: 1. Hypertension, essential - ICD9: 401.9, ICD10: I10 - fair control - Continue current medication(s) - Recommended regular aerobic exercise. - Recommend home blood pressure monitoring, to bring results in on next visit - patient will monitor at home - Goal of BP <130/80 Patient to follow up for routine visit as scheduled. Karen Bliss PA-C documented in this encounter [facility] 06-09-2022 History of Presen t illness Narrative This note was created using [employer]. Subjective Amado Hart is a 76 year old male. HPI Patient presents with sinus congestion and pressure over the past several weeks. He was given doxycycline but had a reaction to it so he stopped it after the second dose. He states he continues to have congestion. His and son were sick recently as well. He has tried some nasal saline. No vomiting or diarrhea. No cough. Review of Systems Constitutional: Negative. HENT: Positive for congestion, postnasal drip, rhinorrhea and sinus pressure. Respiratory: Negative. Cardiovascular: Negative. Gastrointestinal: Negative. Genitourinary: Negative. Musculoskeletal: Negative. All other systems reviewed and are negative. 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 Carpal tunnel syndrome of left wrist Cervical disc disorder with radiculopathy of cervical region 09/03/2011 Changeable mood 09/01/[address] Myers Chronic anxiety 10/29/2018 ED (erectile dysfunction) 03/30/2013 Elevated blood sugar 06/14/2021 Ex-smoker 06/14/2021 Family history of malignant neoplasm lung ca Hyperlipidemia, mixed 07/13/2013 Hypertension, essential 09/26/2011 Medicare annual wellness visit, subsequent 06/14/2021 Medicare Part B: 2011 Last Done: 06/14/2021 Obesity, Class I, BMI 30-34.9 10/04/2019 Pruritus ani 12/27/2010 Current Outpatient Medications Medication Sig Dispense Refill amoxicillin-clavulanic acid (AUGMENTIN) 875-125 mg per tablet Take 1 tablet by mouth twice daily for 7 days. 14 tablet 0 fluticasone (FLONASE) 50 mcg/actuation nasal spray Use 2 Sprays in each nostril once daily. Rinse mouth after use. 1 Each 0 cetirizine (ZYRTEC) 10 mg tablet Take 1 tablet by mouth once daily for 14 days. 14 tablet 0 atorvastatin (LIPITOR) 20 mg tablet Take 1 tablet by mouth daily at bedtime. For cholesterol. 30 tablet 1 losartan (COZAAR) 50 mg tablet Take 1 tablet by mouth once daily. 90 tablet 3 EFFEXOR 25 MG TAB Take one(1) tablet twice daily. 0 No current facility-administered medications for this visit. PAST SURGICAL HISTORY Procedure Laterality Date COLONOSCOPY FLX DX W/COLLJ SPEC WHEN PFRMD 2001 Colonoscopy COLONOSCOPY FLX DX W/COLLJ SPEC WHEN PFRMD 10/28/2006 Colonoscopy-repeat in COLONOSCOPY FLX DX W/COLLJ SPEC WHEN PFRMD 02/25/2012 Colonoscopy COLONOSCOPY FLX DX W/COLLJ SPEC WHEN PFRMD 07/08/2017 Colonoscopy ESOPHAGOGASTRODUODENOSCOPY TRANSORAL DIAGNOSTIC 10/28/2006 EGD NEUROPLASTY &/TRANSPOS MEDIAN NRV CARPAL TUNNE Bilateral 04/20/2020 Bilateral carpal tunnel release FAMILY HISTORY Problem Relation Age of Onset Cancer Mother lung Cancer Father COLON None Sister None Brother Diabetes Brother Social History Tobacco Use Smoking status: Former Smokeless tobacco: Never Tobacco comments: quit 1969 Vaping Use Vaping Use: Never used Substance Use Topics Alcohol use: No Drug use: No Objective BP 130/78 Pulse 86 Temp 36.7 C (98 F) Resp 22 Wt 93.4 kg (206 lb) SpO2 99% BMI 31.96 kg/m Physical Exam Vitals reviewed. Constitutional: Appearance: Normal appearance. HENT: Head: Normocephalic and atraumatic. Right Ear: Tympanic membrane, ear canal and external ear normal. Left Ear: Tympanic membrane, ear canal and external ear normal. Nose: Congestion present. Right Sinus: Maxillary sinus tenderness present. Left Sinus: Maxillary sinus tenderness present. Mouth/Throat: Mouth: Mucous membranes are moist. Pharynx: Oropharynx is clear. Cardiovascular: Rate and Rhythm: Normal rate and regular rhythm. Heart sounds: Normal heart sounds. Pulmonary: Effort: Pulmonary effort is normal. Breath sounds: Normal breath sounds. Musculoskeletal: Cervical back: Neck supple. Lymphadenopathy: Cervical: No cervical adenopathy. Skin: General: Skin is warm and dry. Neurological: Mental Status: He is alert. Assessment and Plan ASSESSMENT/PLAN: 1. Bacterial sinusitis - ICD9: 473.9, 041.9, ICD10: J32.9, B96.89 - Will begin treatment with Augmentin 875 mg PO BID for 7 days, claritin and floanse - Supportive care with plenty of fluids, rest, and analgesia prn. - Follow up in one week if symptoms persist or worsen. Kasey Matt PA-C documented in this encounter [facility] 06-05-2022 Miscellaneous Notes Pt called and is notified of providers message. Pt voices understanding. Maria T Solo RN Let patient know labs and urine testing placed to do prior to appt. Please place lab orders for CMP, Lipid, UA, A1c, CBC and PSA prior to his medicare wellness on 06/21 documented in this encounter [facility] 05-30-2022 History of Presen t illness Narrative This note was created using NoteWriter. Subjective Amado Hart is a 76 year old male. 76 year old male with PMH HTN, hyperlipidemia, obesity and ED presents with complaints of illness. Acute onset of symptoms started a few weeks ago. +sinus pressure +nasal congestion +headache +post nasal drainage +cough States that he seemed to improve approximately one week ago Endorses over the past few days, he has had a return Slight ear fullness. Has used Mucinex and Advil + Sudafed as well. The history is provided by the patient. No multi disciplined language analyst was used. Nasal Congestion This is a new problem. The current episode started 1 to 4 weeks ago. The problem has been waxing and waning since onset. There has been no fever. His pain is at a severity of 5/10. Associated symptoms include congestion, coughing, ear pain, headaches, sinus pressure, sneezing and a sore throat. Pertinent negatives include no chills, diaphoresis, hoarse voice, neck pain, shortness of breath or swollen glands. Treatments tried: OTC medicines utilized. The treatment provided no relief. 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 Carpal tunnel syndrome of left wrist Cervical disc disorder with radiculopathy of cervical region 09/03/2011 Changeable mood 09/01/[address] Myers Chronic anxiety 10/29/2018 ED (erectile dysfunction) 03/30/2013 Elevated blood sugar 06/14/2021 Ex-smoker 06/14/2021 Family history of malignant neoplasm lung ca Hyperlipidemia, mixed 07/13/2013 Hypertension, essential 09/26/2011 Medicare annual wellness visit, subsequent 06/14/2021 Medicare Part B: 2011 Last Done: 06/14/2021 Obesity, Class I, BMI 30-34.9 10/04/2019 Pruritus ani 12/27/2010 PAST SURGICAL HISTORY Procedure Laterality Date COLONOSCOPY FLX DX W/COLLJ SPEC WHEN PFRMD 2001 Colonoscopy COLONOSCOPY FLX DX W/COLLJ SPEC WHEN PFRMD 10/28/2006 Colonoscopy-repeat in COLONOSCOPY FLX DX W/COLLJ SPEC WHEN PFRMD 02/25/2012 Colonoscopy COLONOSCOPY FLX DX W/COLLJ SPEC WHEN PFRMD 07/08/2017 Colonoscopy ESOPHAGOGASTRODUODENOSCOPY TRANSORAL DIAGNOSTIC 10/28/2006 EGD NEUROPLASTY &/TRANSPOS MEDIAN NRV CARPAL TUNNE Bilateral 04/20/2020 Bilateral carpal tunnel release ALLERGIES Lisinopril and Zocor [Simvastatin] MEDICATIONS atorvastatin (LIPITOR) 20 mg tablet Take 1 tablet by mouth daily at bedtime. For cholesterol. losartan (COZAAR) 50 mg tablet Take 1 tablet by mouth once daily. EFFEXOR 25 MG TAB Take one(1) tablet twice daily. doxycycline monohydrate 100 mg tablet Take 1 tablet by mouth twice daily for 7 days. FAMILY HISTORY Problem Relation Age of Onset Cancer Mother lung Cancer Father COLON None Sister None Brother Diabetes Brother Social History Tobacco Use Smoking status: Former Smokeless tobacco: Never Tobacco comments: quit 1969 s Vaping Use Vaping Use: Never used Substance Use Topics Alcohol use: No Drug use: No Review of Systems Constitutional: Negative for chills, diaphoresis and fever. HENT: Positive for congestion, ear pain, postnasal drip, rhinorrhea, sinus pressure, sneezing and sore throat. Negative for ear discharge and hoarse voice. Eyes: Negative for pain, discharge and itching. Respiratory: Positive for cough. Negative for apnea, choking, chest tightness and shortness of breath. Cardiovascular: Negative for chest pain, palpitations and leg swelling. Gastrointestinal: Negative for abdominal pain, diarrhea, nausea and vomiting. Musculoskeletal: Negative for arthralgias, back pain, gait problem and neck pain. Skin: Negative for color change, pallor, rash and wound. Allergic/Immunologic: Negative for environmental allergies, food allergies and immunocompromised state. Neurological: Positive for headaches. Negative for dizziness, facial asymmetry, light-headedness and numbness. Hematological: Negative for adenopathy. Does not bruise/bleed easily. Psychiatric/Behavioral: Negative for agitation and behavioral problems. Objective BP 168/78 Pulse 73 Temp 37.5 C (99.5 F) Resp 21 Wt 94.9 kg (209 lb 3.2 oz) SpO2 98% BMI 32.45 kg/m Physical Exam Vitals and nursing note reviewed. Constitutional: General: He is not in acute distress. Appearance: Normal appearance. He is not ill-appearing, toxic-appearing or diaphoretic. HENT: Head: Normocephalic and atraumatic. Right Ear: External ear normal. Left Ear: External ear normal. Ears: Comments: +frontal and maxillary sinus TTP Bilateral TM moderate serous fluid noted Nose: Nose normal. No congestion or rhinorrhea. Mouth/Throat: Mouth: Mucous membranes are moist. Pharynx: Oropharynx is clear. No oropharyngeal exudate or posterior oropharyngeal erythema. Eyes: General: Right eye: No discharge. Left eye: No discharge. Extraocular Movements: Extraocular movements intact. Conjunctiva/sclera: Conjunctivae normal. Pupils: Pupils are equal, round, and reactive to light. Cardiovascular: Rate and Rhythm: Normal rate and regular rhythm. Pulses: Normal pulses. Heart sounds: Normal heart sounds. No murmur heard. No friction rub. No gallop. Pulmonary: Effort: Pulmonary effort is normal. No respiratory distress. Breath sounds: Normal breath sounds. No stridor. No wheezing, rhonchi or rales. Chest: Chest wall: No tenderness. Abdominal: General: Abdomen is flat. There is no distension. Palpations: Abdomen is soft. There is no mass. Tenderness: There is no abdominal tenderness. There is no guarding or rebound. Hernia: No hernia is present. Musculoskeletal: General: No swelling, tenderness, deformity or signs of injury. Normal range of motion. Cervical back: Normal range of motion and neck supple. No rigidity or tenderness. Right lower leg: No edema. Left lower leg: No edema. Lymphadenopathy: Cervical: No cervical adenopathy. Skin: General: Skin is warm and dry. Capillary Refill: Capillary refill takes less than 2 seconds. Coloration: Skin is not jaundiced or pale. Findings: No bruising, lesion or rash. Neurological: General: No focal deficit present. Mental Status: He is alert and oriented to person, place, and time. Cranial Nerves: No cranial nerve deficit. Sensory: No sensory deficit. Motor: No weakness. Coordination: Coordination normal. Gait: Gait normal. Deep Tendon Reflexes: Reflexes normal. Psychiatric: Mood and Affect: Mood normal. Behavior: Behavior normal. Thought Content: Thought content normal. Assessment and Plan ASSESSMENT/PLAN: 1. Rhinosinusitis - ICD9: 473.9, ICD10: J31.0, J32.9 - Will begin treatment with as per antibiotic as written, see orders - The patient should also be given OTC cough and cold meds as needed, warm salt water gargles, throat lozenges and/or OTC throat spray as needed, and nasal saline gtts and suction prn for the first 5-7 days of treatment. - Supportive care with plenty of fluids, rest, and analgesia prn. - Follow up in 3-5 days if symptoms persist or worsen. Narda Delcid APRN.NATURAL HISTORY COLLECTIONS CURATOR documented in this encounter [facility] 12-25-2021 Miscellaneous Notes Patient notified & verbalizes understanding. Cindy Concepcion MA I have no idea what he means by a CAC test is. I understand his concern about the side affects though there are far fewer patient who have issues then those who are taking these meds and have no issues. What he should also understand and take into consideration is the risk he has of having a heart attack or stroke with not being on these meds. If he feels the concern over potential side affects out weighs seeing if he does ok with the medication and lesson his risks then that is ultimately his choice. Patient indicated that there is a CAC test that helps determine if a statin would be good for you. Patient is wanting to know if this can be completed prior to taking the statin. Patient is just concerned with all the side effects from the statin medication. Kimberly Jarrett MA Let patient know his calcium level was just checked on his recent blood work from 12/12/2021 and it was normal. Pt called and states he would like to have his calcium checked. Pt states he is not sure if he wants to go on a statin drug due to all the information he has heard about statin drugs. Pt states wants calcium level checked first. Please advise. Abimbola Duarte LPN documented in this encounter [facility] 12-13-2021 Miscellaneous Notes The following approved medication requests have been transmitted electronically. Signed Prescriptions Disp Refills atorvastatin (LIPITOR) 20 mg tablet 30 tablet 1 Sig: Take 1 tablet by mouth daily at bedtime. For cholesterol. Authorizing Provider: KAREN BLISS PA-C Patient notified of results, verbalizes understanding of instructions. Pt stated to send Lipitor Rx to [facility]. Rosa Tamayo LPN Let patient know that overall labs look okay except that except that his cholesterol has increased quite a bit. LDL is up to 177 from 146 (goal is under 130) Total cholesterol is up to 249 from 216 (goal under 200). Given this increase, typically I would recommend starting statin. I would consider lipitor 20mg. Is this something he is willing to do? Karen Bliss PA-C documented in this encounter [facility] 12-12-2021 Instructions Lila Kramer MD - 12/12/2021 10:58 AM EDT Please get labs and urine test done on or after 05/31/2022 prior to your next visit. documented in this encounter [facility] 12-12-2021 History of Presen t illness Narrative Chief Complaint Patient presents with: Follow Up: Patient is here for 6 month follow up HPI Amado Hart is a 76 year old male who presents here today for Chronic Medical Conditions.. Patient with hx of HTN, Hyperlipidemia, Anxiety (seeing psych), obesity, ex-smoker, BPH, ED as well as those reviewed and addressed below and in ROS. Patient has been doing very well. Concerns; none Past medical history, appointments, medications, allergies reviewed. Previous Medical History 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 Carpal tunnel syndrome of left wrist Cervical disc disorder with radiculopathy of cervical region 09/03/2011 Changeable mood 09/01/[address] Myers Chronic anxiety 10/29/2018 ED (erectile dysfunction) 03/30/2013 Elevated blood sugar 06/14/2021 Ex-smoker 06/14/2021 Family history of malignant neoplasm lung ca Hyperlipidemia, mixed 07/13/2013 Hypertension, essential 09/26/2011 Medicare annual wellness visit, subsequent 06/14/2021 Medicare Part B: 2011 Last Done: 06/14/2021 Obesity, Class I, BMI 30-34.9 10/04/2019 Pruritus ani 12/27/2010 Previous Surgical History PAST SURGICAL HISTORY Procedure Laterality Date COLONOSCOP W/ OR W/O BRSH SPEC 2001 Colonoscopy COLONOSCOP W/ OR W/O BRSH SPEC 10/28/2006 Colonoscopy-repeat in COLONOSCOP W/ OR W/O BRSH SPEC 02/25/2012 Colonoscopy COLONOSCOP W/ OR W/O BRSH SPEC 07/08/2017 Colonoscopy EGD W/O OR W/BRUSH/WASH 10/28/2006 EGD REVISE MEDIAN N/CARPAL TUNNEL SURG Bilateral 04/20/2020 Bilateral carpal tunnel release Family History FAMILY HISTORY Problem Relation Age of Onset Cancer Mother lung Cancer Father COLON None Sister None Brother Diabetes Brother Patient Allergies ALLERGIES Allergen Reactions Lisinopril Cough Zocor [Simvastatin] Myalgia Current Medications Current Outpatient Medications on File Prior to Visit Medication Sig losartan (COZAAR) 50 mg tablet Take 1 tablet by mouth once daily. EFFEXOR 25 MG TAB Take one(1) tablet twice daily. No current facility-administered medications on file prior to visit. Social History Social History Tobacco Use Smoking status: Former Smoker Smokeless tobacco: Never Used Tobacco comment: quit 1969 Vaping Use Vaping Use: Never used Substance Use Topics Alcohol use: No Drug use: No Review of Symptoms REVIEW OF SYSTEMS GENERAL: No weight loss, malaise or fevers NECK: Negative for lumps, goiter, pain and significant neck swelling RESPIRATORY: Negative for cough, hemoptysis, wheezing, COPD, dyspnea or shortness of breath CARDIOVASCULAR: Negative for chest pain, leg swelling, hypertension, CHF or palpitations GI: No nausea, vomiting, or diarrhea and No heartburn or reflux symptoms ENDOCRINE: Negative for cold or heat intolerance, polyuria, polydipsia and goiter NEURO: No history of headaches, syncope, paralysis, seizures or tremors EXAM: BP 140/78 (BP Site: Left Arm, BP Position: Sitting, BP Cuff Size: Large Adult) Pulse 60 Resp 16 Wt 95.3 kg (210 lb) BMI 32.58 kg/m BP 132/80 Pulse 60 Resp 16 Wt 95.3 kg (210 lb) BMI 32.58 kg/m Last 5 Encounter Wt Readings: Date: Wt: 12/12/2021 95.3 kg (210 lb) 06/14/2021 94.8 kg (209 lb) 03/21/2020 97.5 kg (214 lb 15.2 oz) 03/16/2020 97.5 kg (215 lb) 10/04/2019 100.7 kg (222 lb) General Appearance: Well appearing, alert, in no acute distress, well-hydrated, well nourished. and Obese. Neck: Supple, no adenopathy; thyroid symmetric, normal size, no bruits. Lungs: Lungs clear to auscultation. No wheezing, rhonchi, rales.. Heart: RRR without murmur, gallop, or rubs. No ectopy. Abdomen: Normal abdominal exam, Abdomen soft, non-tender. Bowel sounds normal. No masses, organomegaly. Extremities: No deformities, edema, skin discoloration, Musculoskeletal: Muscular strength intact, No joint swelling, deformity, or tenderness. Peripheral Pulses: Normal. Neurologic: Gait normal. Sensation to light touch intact.. Health Maintenance List BP CONTROLLED (<130/80) Never done ADVANCE DIRECTIVE DISCUSSION Never done COVID-19 VACCINE(3 - Booster for Pfizer series) due on 12/23/2021 ANNUAL PCP TEAM CHRONIC DISEASE VISIT due on 06/14/2022 COLORECTAL CANCER SCREENING due on 07/08/2022 DIABETES SCREEN due on 06/14/2024 LIPID SCREEN due on 06/14/2026 DTAP,TDAP,TD(4 - Td or Tdap) due on 10/10/2029 INFLUENZA Completed HEPATITIS C SCREENING Completed PNEUMOVAX AGE 65 AND OVER WITH 5YR LOOKBACK Completed SHINGRIX VACCINE Completed MENINGOCOCCAL CONJUGATE Aged Out DEPRESSION SCREENING Discontinued Data reviewed Component Latest Ref Rng & Units 04/02/2021 06/14/2021 WBC 3.70 - 11.00 k/uL 4.24 RBC 4.20 - 6.00 m/uL 4.38 Hemoglobin 13.0 - 17.0 g/dL 13.8 Hematocrit 39.0 - 51.0 % 40.8 MCV 80.0 - 100.0 fL 93.2 MCH 26.0 - 34.0 pG 31.5 MCHC 30.5 - 36.0 g/dL 33.8 RDW-CV 11.5 - 15.0 % 12.3 Platelet Count 150 - 400 k/uL 241 MPV 9.0 - 12.7 fL 10.6 Neut% % 59.4 Abs Neut (ANC) 1.45 - 7.50 k/uL 2.51 Lymph% % 24.8 Abs Lymph 1.00 - 4.00 k/uL 1.05 [place]% % 10.8 Abs [place] <0.87 k/uL 0.46 Eosin% % 3.8 Abs Eosin <0.46 k/uL 0.16 Baso% % 1.2 Abs Baso <0.11 k/uL 0.05 Nucleated Reds 0 /100 WBC 0.0 Absolute nRBC <0.01 k/uL <0.01 Diff Type Auto Diff Protein, Total 6.3 - 8.0 g/dL 7.0 Albumin 3.9 - 4.9 g/dL 4.0 Calcium 8.5 - 10.2 mg/dL 9.0 Bilirubin, Total 0.2 - 1.3 mg/dL 0.3 Alkaline Phosphatase 38 - 113 U/L 53 AST 14 - 40 U/L 16 Glucose 74 - 99 mg/dL 104 (H) BUN 9 - 24 mg/dL 17 Creatinine 0.73 - 1.22 mg/dL 0.84 Sodium 136 - 144 mmol/L 139 Potassium 3.7 - 5.1 mmol/L 4.2 Chloride 97 - 105 mmol/L 105 CO2 22 - 30 mmol/L 23 Anion Gap 9 - 18 mmol/L 11 ALT 10 - 54 U/L 13 eGFR- >60 eGFR-All Other Races . >60 Total Cholesterol, Nonfasting <200 mg/dL 212 (H) 216 (H) Triglycerides, Nonfasting <150 mg/dL 104 116 HDL Cholesterol, Nonfasting >39 mg/dL 41 46 LDL Cholesterol, Nonfasting <100 mg/dL 150 (H) 147 (H) Non HDL Cholesterol, Nonfasting <130 mg/dL 171 (H) 170 (H) VLDL Cholesterol, Nonfasting <30 mg/dL 21 23 Total Chol/HDL Ratio, Nonfasting <5.10 mg/dL 5.17 (H) 4.70 LDL/HDL Ratio, Nonfasting <2.54 mg/dL 3.66 (H) 3.20 (H) Hemoglobin A1C 4.3 - 5.6 % 5.4 Estimated Average Glucose mg/dL 108 PSA 0.00 - 2.59 ng/mL 0.66 A/P ASSESSMENT/PLAN: 1. Hypertension, essential - ICD9: 401.9, ICD10: I10 (primary diagnosis) - good control - Continue current medication(s) - Recommended regular aerobic exercise. - Recommend home blood pressure monitoring, to bring results in on next visit - Goal of BP <130/80 - LIPID PANEL, NONFASTING 2. Hyperlipidemia, mixed - ICD9: 272.2, ICD10: E78.2 - to be determined upon return of lab results - Encouraged following a low fat, low cholesterol diet. - Discussed the benefits of regular aerobic exercise and weight loss. - Encouraged following a low carbohydrate, healthy oil intake diet. - Continue current therapy. Check - LIPID PANEL, NONFASTING 3. Elevated blood sugar - ICD9: 790.29, ICD10: R73.9 Check - HGB A1C 4. Chronic anxiety - ICD9: 300.00, ICD10: F41.9 - Stable with Tx per psych 5. Obesity, Class I, BMI 30-34.9 - ICD9: 278.00, ICD10: E66.9 Stable - Behavioral intervention F/u 6 months extensive check CMP, Lipid, UA, A1c, CBC and PSA prior. Lila Kramer MD documented in this encounter [facility] documented as of this encounter (statuses as of 12/12/2021) [facility] History of Past illness Narrative* Problem Noted Date Resolved Date Changeable mood 09/01/2017 10/04/2019 Overview: [address] Myers Impaired fasting glucose 07/31/2016 020 Trigger ring finger of right hand 07/12/2013 10/04/2019 Acute gastritis without mention of hemorrhage 07/31/2016 Other specified disease of hair and hair follicl es 08/08/2006 10/04/2019 Dysmetabolic syndrome X 08/08/2006 10/04/19 20 documented as of this encounter (statuses as of 12/13/2021) [facility] History of Past illness Narrative* Problem Noted Date Resolved Date Changeable mood 09/01/2017 10/04/2019 Overview: [address] Myers Impaired fasting glucose 07/31/2016 020 Trigger ring finger of right hand 07/12/2013 10/04/2019 Acute gastritis without mention of hemorrhage 07/31/2016 Other specified disease of hair and hair follicl es 08/08/2006 10/04/2019 Dysmetabolic syndrome X 08/08/2006 10/04/19 20 documented as of this encounter (statuses as of 12/25/2021) [facility] History of Past illness Narrative* Problem Noted Date Resolved Date Changeable mood 09/01/2017 10/04/2019 Overview: [address] Myers Impaired fasting glucose 07/31/2016 020 Trigger ring finger of right hand 07/12/2013 10/04/2019 Acute gastritis without mention of hemorrhage 07/31/2016 Other specified disease of hair and hair follicl es 08/08/2006 10/04/2019 Dysmetabolic syndrome X 08/08/2006 10/04/19 20 documented as of this encounter (statuses as of 05/30/2022) [facility] History of Past illness Narrative* Problem Noted Date Resolved Date Changeable mood 09/01/2017 10/04/2019 Overview: [address] Myers Impaired fasting glucose 07/31/2016 020 Trigger ring finger of right hand 07/12/2013 10/04/2019 Acute gastritis without mention of hemorrhage 07/31/2016 Other specified disease of hair and hair follicl es 08/08/2006 10/04/2019 Dysmetabolic syndrome X 08/08/2006 10/04/19 20 documented as of this encounter (statuses as of 06/05/2022) [facility] History of Past illness Narrative* Problem Noted Date Resolved Date Changeable mood 09/01/2017 10/04/2019 Overview: [address] Myers Impaired fasting glucose 07/31/2016 020 Trigger ring finger of right hand 07/12/2013 10/04/2019 Acute gastritis without mention of hemorrhage 07/31/2016 Other specified disease of hair and hair follicl es 08/08/2006 10/04/2019 Dysmetabolic syndrome X 08/08/2006 10/04/19 20 documented as of this encounter (statuses as of 06/09/2022) [facility] History of Past illness Narrative* Problem Noted Date Resolved Date Changeable mood 09/01/2017 10/04/2019 Overview: [address] Myers Impaired fasting glucose 07/31/2016 020 Trigger ring finger of right hand 07/12/2013 10/04/2019 Acute gastritis without mention of hemorrhage 07/31/2016 Other specified disease of hair and hair follicl es 08/08/2006 10/04/2019 Dysmetabolic syndrome X 08/08/2006 10/04/19 20 documented as of this encounter (statuses as of 08/04/2022) [facility] History of Past illness Narrative* Problem Noted Date Resolved Date Changeable mood 09/01/2017 10/04/2019 Overview: [address] Myers Impaired fasting glucose 07/31/2016 020 Trigger ring finger of right hand 07/12/2013 10/04/2019 Acute gastritis without mention of hemorrhage 07/31/2016 Other specified disease of hair and hair follicl es 08/08/2006 10/04/2019 Dysmetabolic syndrome X 08/08/2006 10/04/19 20 documented as of this encounter (statuses as of 09/25/2022) [place] [id number] History of Past illness Narrative* Problem Noted Date Resolved Date Changeable mood 09/01/2017 10/04/2019 Overview: [address] Myers Impaired fasting glucose 07/31/2016 020 Trigger ring finger of right hand 07/12/2013 10/04/2019 Acute gastritis without mention of hemorrhage 07/31/2016 Other specified disease of hair and hair follicl es 08/08/2006 10/04/2019 Dysmetabolic syndrome X 08/08/2006 10/04/19 20 documented as of this encounter (statuses as of 10/11/2022) [facility] History of Past illness Narrative* Problem Noted Date Resolved Date Changeable mood 09/01/2017 10/04/2019 Overview: [address] Myers Impaired fasting glucose 07/31/2016 020 Trigger ring finger of right hand 07/12/2013 10/04/2019 Acute gastritis without mention of hemorrhage 07/31/2016 Other specified disease of hair and hair follicl es 08/08/2006 10/04/2019 Dysmetabolic syndrome X 08/08/2006 10/04/19 20 documented as of this encounter (statuses as of 01/06/2023) [facility] History of Past illness Narrative* Problem Noted Date Resolved Date Changeable mood 09/01/2017 10/04/2019 Overview: [address] Myers Impaired fasting glucose 07/31/2016 020 Trigger ring finger of right hand 07/12/2013 10/04/2019 Acute gastritis without mention of hemorrhage 07/31/2016 Other specified disease of hair and hair follicl es 08/08/2006 10/04/2019 Dysmetabolic syndrome X 08/08/2006 10/04/19 20 documented as of this encounter (statuses as of 01/28/2023) [facility] History of Past illness Narrative* Problem Noted Date Diagnosed Date Resolved Date Changeable mood 09/01/2017 10/04/2019 Overview: [address] Myers Impaired fasting glucose 07/31/201609/2019 Trigger ring finger of right hand 07/12/2013 10/04/2019 Acute gastritis without mention of hemorrhage 10/29/19 07 07/31/2016 Other specified disease of h air and hair follicles 08/08/2006 10/04/2019 Dysmetabolic syndrome X 08/08/200609/2019 documented as of this encounter (statuses as of 03/21/2023) [facility] History of Past illness Narrative* Problem Noted Date Diagnosed Date Resolved Date Changeable mood 09/01/2017 10/04/2019 Overview: [address] Myers Impaired fasting glucose 07/31/201609/2019 Trigger ring finger of right hand 07/12/2013 10/04/2019 Acute gastritis without mention of hemorrhage 10/29/19 07 07/31/2016 Other specified disease of h air and hair follicles 08/08/2006 10/04/2019 Dysmetabolic syndrome X 08/08/200609/2019 documented as of this encounter (statuses as of 03/21/2023) [facility] History of Past illness Narrative* Problem Noted Date Diagnosed Date Resolved Date Changeable mood 09/01/2017 10/04/2019 Overview: [address] Myers Impaired fasting glucose 07/31/201609/2019 Trigger ring finger of right hand 07/12/2013 10/04/2019 Acute gastritis without mention of hemorrhage 10/29/19 07 07/31/2016 Other specified disease of h air and hair follicles 08/08/2006 10/04/2019 Dysmetabolic syndrome X 08/08/200609/2019 documented as of this encounter (statuses as of 03/25/2023) [facility] History of Past illness Narrative* Problem Noted Date Diagnosed Date Resolved Date Changeable mood 09/01/2017 10/04/2019 Overview: [address] Myers Impaired fasting glucose 07/31/201609/2019 Trigger ring finger of right hand 07/12/2013 10/04/2019 Acute gastritis without mention of hemorrhage 10/29/19 07 07/31/2016 Other specified disease of h air and hair follicles 08/08/2006 10/04/2019 Dysmetabolic syndrome X 08/08/200609/2019 documented as of this encounter (statuses as of 04/22/2023) [facility] History of Past illness Narrative* Problem Noted Date Diagnosed Date Resolved Date Changeable mood 09/01/2017 10/04/2019 Overview: [address] Myers Impaired fasting glucose 07/31/201609/2019 Trigger ring finger of right hand 07/12/2013 10/04/2019 Acute gastritis without mention of hemorrhage 10/29/19 07 07/31/2016 Other specified disease of h air and hair follicles 08/08/2006 10/04/2019 Dysmetabolic syndrome X 08/08/200609/2019 documented as of this encounter (statuses as of 05/16/2023) [facility] History of Past illness Narrative* Problem Noted Date Diagnosed Date Resolved Date Changeable mood 09/01/2017 10/04/2019 Overview: [address] Myers Impaired fasting glucose 07/31/201609/2019 Trigger ring finger of right hand 07/12/2013 10/04/2019 Acute gastritis without mention of hemorrhage 10/29/19 07 07/31/2016 Other specified disease of h air and hair follicles 08/08/2006 10/04/2019 Dysmetabolic syndrome X 08/08/200609/2019 documented as of this encounter (statuses as of 05/21/2023) [facility] History of Past illness Narrative* Problem Noted Date Diagnosed Date Resolved Date Changeable mood 09/01/2017 10/04/2019 Overview: [address] Myers Impaired fasting glucose 07/31/201609/2019 Trigger ring finger of right hand 07/12/2013 10/04/2019 Acute gastritis without mention of hemorrhage 10/29/19 07 07/31/2016 Other specified disease of h air and hair follicles 08/08/2006 10/04/2019 Dysmetabolic syndrome X 08/08/200609/2019 documented as of this encounter (statuses as of 06/06/2023) [facility] History of Past illness Narrative* Problem Noted Date Diagnosed Date Resolved Date Changeable mood 09/01/2017 10/04/2019 Overview: [address] Myers Impaired fasting glucose 07/31/201609/2019 Trigger ring finger of right hand 07/12/2013 10/04/2019 Acute gastritis without mention of hemorrhage 10/29/19 07 07/31/2016 Other specified disease of h air and hair follicles 08/08/2006 10/04/2019 Dysmetabolic syndrome X 08/08/200609/2019 documented as of this encounter (statuses as of 06/08/2023) [facility] History of Past illness Narrative* Problem Noted Date Diagnosed Date Resolved Date Changeable mood 09/01/2017 10/04/2019 Overview: [address] Myers Impaired fasting glucose 07/31/201609/2019 Trigger ring finger of right hand 07/12/2013 10/04/2019 Acute gastritis without mention of hemorrhage 10/29/19 07 07/31/2016 Other specified disease of h air and hair follicles 08/08/2006 10/04/2019 Dysmetabolic syndrome X 08/08/200609/2019 documented as of this encounter (statuses as of 06/10/2023) [facility] History of Past illness Narrative* Problem Noted Date Diagnosed Date Resolved Date Changeable mood 09/01/2017 10/04/2019 Overview: [address] Myers Impaired fasting glucose 07/31/201609/2019 Trigger ring finger of right hand 07/12/2013 10/04/2019 Acute gastritis without mention of hemorrhage 10/29/19 07 07/31/2016 Other specified disease of h air and hair follicles 08/08/2006 10/04/2019 Dysmetabolic syndrome X 08/08/200609/2019 documented as of this encounter (statuses as of 06/24/2023) [facility] History of Past illness Narrative* Problem Noted Date Diagnosed Date Resolved Date Changeable mood 09/01/2017 10/04/2019 Overview: [address] Myers Impaired fasting glucose 07/31/201609/2019 Trigger ring finger of right hand 07/12/2013 10/04/2019 Acute gastritis without mention of hemorrhage 10/29/19 07 07/31/2016 Other specified disease of h air and hair follicles 08/08/2006 10/04/2019 Dysmetabolic syndrome X 08/08/20060 09/2019 documented as of this encounter (statuses as of 06/30/2023) [facility] History of Past illness Narrative* Problem Noted Date Diagnosed Date Resolved Date Changeable mood 09/01/2017 10/04/2019 Overview: [address] Myers Impaired fasting glucose 07/31/201609/2019 Trigger ring finger of right hand 07/12/2013 10/04/2019 Acute gastritis without mention of hemorrhage 10/29/19 07 07/31/2016 Other specified disease of h air and hair follicles 08/08/2006 10/04/2019 Dysmetabolic syndrome X 08/08/200609/2019 documented as of this encounter (statuses as of 07/27/2023) [facility] [place] [facility] Diagnosis Hypertension, essential- Primary Unspecified essential hypertension Hyperlipidemia, mixed Mixed hyperlipidemia Elevated blood sugar Other abnormal glucose Chronic anxiety Anxiety state, unspecified Obesity, Class I, BMI 30-34.9 Obesity, unspecified Prostate disorder Unspecified disorder of prostate Medication management Encounter for long-term (current) use of other medications [facility] [place] [facility] Diagnosis Rhinosinusitis- Primary Unspecified sinusitis (chronic) [facility] [place] [facility] Diagnosis Elevated blood sugar- Primary Other abnormal glucose Hyperlipidemia, mixed Mixed hyperlipidemia Hypertension, essential Unspecified essential hypertension Prostate disorder Unspecified disorder of prostate Medication management Encounter for long-term (current) use of other medications [facility] [place] [facility] Diagnosis Bacterial sinusitis- Primary Unspecified sinusitis (chronic) [facility] Diagnosis Hypertension, essential- Primary Unspecified essential hypertension [facility] Family history of colon cancer Family history of malignant neoplasm of gastrointestinal tract Screening for colon cancer Special screening for malignant neoplasms, colon [facility] Diagnosis Palpitations- Primary PVC (premature ventricular contraction) Other premature beats [facility] Diagnosis Hypertension, essential- Primary Unspecified essential hypertension Hyperlipidemia, mixed Mixed hyperlipidemia Elevated blood sugar Other abnormal glucose Obesity, Class I, BMI 30-34.9 Obesity, unspecified BPH with obstruction/lower urinary tract symptoms Hypertrophy of prostate with urinary obstruction and other lower urinary tract symptoms (LUTS) Primary osteoarthritis, unspecified site Advance directive discussed with patient Other specified counseling Prostate disorder Unspecified disorder of prostate Medication management Encounter for long-term (current) use of other medications [facility] [place] [facility] Diagnosis Pre-op examination- Primary Preoperative examination, unspecified Arthritis of right hip Hypertension, essential Unspecified essential hypertension Hyperlipidemia, mixed Mixed hyperlipidemia PVC (premature ventricular contraction) Other premature beats [facility] [place] [facility] Diagnosis Snores- Primary Other dyspnea and respiratory abnormality Hypertension, essential Unspecified essential hypertension Hypersomnolence Hypersomnia, unspecified [facility] [place] [facility] Diagnosis Trigger ring finger of left hand- Primary Trigger finger (acquired) [facility] [place] [facility] Diagnosis Encounter for screening for malignant neoplasm of colon- Primary Special screening for malignant neoplasms, colon Family history of colon cancer Family history of malignant neoplasm of gastrointestinal tract Trigger ring finger of left hand Trigger finger (acquired) [facility] [place] [facility] Diagnosis Dysuria- Primary Trigger ring finger of left hand Trigger finger (acquired) [facility] Diagnosis Trigger ring finger of left hand- Primary Trigger finger (acquired) Trigger ring finger of left hand Trigger finger (acquired) [facility] Diagnosis Sinobronchitis- Primary Unspecified sinusitis (chronic) [facility] Diagnosis Trigger ring finger of left hand- Primary Trigger finger (acquired) [facility] Diagnosis Bacterial sinusitis- Primary Unspecified sinusitis (chronic) documented in this encounter [facility] for referral (narrative)* Outpatient Procedure (Routine) - Closed Specialty Diagnoses / Procedures Referred By Contac t Referred To [facility] Diagnoses Palpitations Procedures ECG COMPLETE ECG ROUTINE ECG W/LEAST 12 LDS W/I&R Karen Bliss PA-C [address] [place] [address] [facility] [address] [address] Referral ID Status Reason Start Date Expiration Date V isits Requested Visits Authorized [id number] Closed Auto-Generate d Referral 10/11/2022 10/11/2023 1 1 [facility] for referral (narrative)* Diagnostic Procedure Only (Routine) - Pending Review Specialty Diagnoses / Procedures Referred By Contac t Referred To Contact [facility] Diagnoses Snores Hypertension, essential Hypersomnolence Procedures HOME SLEEP APNEA TEST (HSAT) SLEEP STD AIRFLOW HRT RATE&O2 SAT EFFORT UNATT Lila Kramer MD [address] [place] [address] [address] Referral ID Status Reason Start Date Expiration Date Visits Requested Visits Authorized [id number] Pending Review Auto-Generat ed Referral 04/22/2023 04/21/2024 1 1 [facility] for referral (narrative)* Outpatient Procedure (Routine) - Closed Specialty Diagnoses / Procedures Referred By Contac t Referred To Contact [facility] Diagnoses Family history of colon cancer Procedures COLONOSCOPY SCREENING COLONOSCOPY FLX DX W/COLLJ SPEC WHEN PFRMD Maria T Monroe PA-C [address] [place] [address] [facility] [address] [place] [id number] Referral ID Status Reason Start Date Expiration Date V isits Requested Visits Authorized [id number] Closed Auto-Generate d Referral 09/19/2022 09/19/2023 1 1 [facility] Outpatient Procedure (Routine) - Closed Specialty Diagnoses / Procedures Referred By Michelle jara Referred To Contact [facility] Diagnoses Family history of colon cancer Procedures COLONOSCOPY SCREENING COLONOSCOPY FLX DX W/COLLJ SPEC WHEN PFRMD Maria T Monroe PA-C [address] 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 Advance Directive(s) 04/20/2020 1:08 PM Advance Directive(s) 07/08/2017 8:15 AM Medications Administered Section Inactive Administered Medications - up to 3 most recent administrations Medication Order MAR Action Action Date Dose Rate Site diphenhydrAMINE 12.5-50 mg injection (BENADRYL) 12.5-50 mg, INTRAVENOUS, DIRECTED, Starting on Mary 10/10/22 at 0900, Until Mary 10/10/22 at 1259, DOSING DIRECTED BY PHYSICIAN FOR PROCEDURAL SEDATION ONLY, Intraprocedure Given 10/10/2022 8:40 AM EST 50 mg fentaNYL 50 mcg/mL 25-100 mcg injection (SUBLIMAZE) 25-100 mcg, INTRAVENOUS, DIRECTED, Starting on Mary 10/10/22 at 0900, Until Mary 10/10/22 at 1259, DOSING DIRECTED BY PHYSICIAN FOR PROCEDURAL SEDATION ONLY, Intraprocedure Given 10/10/2022 8:38 AM EST 50 mcg lactated ringers iv infusion 30 mL/hr, INTRAVENOUS, CONTINUOUS, Starting on Mary 10/10/22 at 0830, Until Mary 10/10/22 at 0906, Preprocedure New Bag/Syringe/Bottle 10/10/2022 8:20 AM EST 30 mL/hr 30 mL/hr midazolam 1-5 mg injection (VERSED) 1-5 mg, INTRAVENOUS, DIRECTED, Starting on Mary 10/10/22 at 0900, Until Mary 10/10/22 at 1259, DOSING DIRECTED BY PHYSICIAN FOR PROCEDURAL SEDATION ONLY, Intraprocedure Given 10/10/2022 8:38 AM EST 3 mg Summary Purpose Family History No Family History Records Found Additional Source Comments Source Comments (unrecognize d section and content) In the event this informatio n is protected by the [facility] Confidentiality of Alcohol and Drug Abuse Patient Records regulations: The Federal rules restrict any use of the information to criminally investigate or prosecute any alcohol or drug abuse patient.[facility] the event this information is protected by the Federal Confidentiality of Alcohol and Drug Abuse Patient Records regulations: The Federal rules restrict any use of the information to criminally investigate or prosecute any alcohol or drug abuse patient.[facility] the event this information is protected by the Federal Confidentiality of Alcohol and Drug Abuse Patient Records regulations: The Federal rules restrict any use of the information to criminally investigate or prosecute any alcohol or drug abuse patient.[facility] the event this information is protected by the Federal Confidentiality of Alcohol and Drug Abuse Patient Records regulations: The Federal rules restrict any use of the information to criminally investigate or prosecute any alcohol or drug abuse patient.[facility] the event this information is protected by the Federal Confidentiality of Alcohol and Drug Abuse Patient Records regulations: The Federal rules restrict any use of the information to criminally investigate or prosecute any alcohol or drug abuse patient.[facility] the event this information is protected by the Federal Confidentiality of Alcohol and Drug Abuse Patient Records regulations: The Federal rules restrict any use of the information to criminally investigate or prosecute any alcohol or drug abuse patient.[facility] the event this information is protected by the Federal Confidentiality of Alcohol and Drug Abuse Patient Records regulations: The Federal rules restrict any use of the information to criminally investigate or prosecute any alcohol or drug abuse patient.[facility] the event this information is protected by the Federal Confidentiality of Alcohol and Drug Abuse Patient Records regulations: The Federal rules restrict any use of the information to criminally investigate or prosecute any alcohol or drug abuse patient.[facility] the event this information is protected by the Federal Confidentiality of Alcohol and Drug Abuse Patient Records regulations: The Federal rules restrict any use of the information to criminally investigate or prosecute any alcohol or drug abuse patient.[facility] the event this information is protected by the Federal Confidentiality of Alcohol and Drug Abuse Patient Records regulations: The Federal rules restrict any use of the information to criminally investigate or prosecute any alcohol or drug abuse patient.[facility]In the event this information is protected by the Federal Confidentiality of Alcohol and Drug Abuse Patient Records regulations: The Federal rules restrict any use of the information to criminally investigate or prosecute any alcohol or drug abuse patient.[facility]In the event this information is protected by the Federal Confidentiality of Alcohol and Drug Abuse Patient Records regulations: The Federal rules restrict any use of the information to criminally investigate or prosecute any alcohol or drug abuse patient.[facility] the event this information is protected by the Federal Confidentiality of Alcohol and Drug Abuse Patient Records regulations: The Federal rules restrict any use of the information to criminally investigate or prosecute any alcohol or drug abuse patient.[facility]In the event this information is protected by the Federal Confidentiality of Alcohol and Drug Abuse Patient Records regulations: The Federal rules restrict any use of the information to criminally investigate or prosecute any alcohol or drug abuse patient.[facility]In the event this information is protected by the Federal Confidentiality of Alcohol and Drug Abuse Patient Records regulations: The Federal rules restrict any use of the information to criminally investigate or prosecute any alcohol or drug abuse patient.[facility]In the event this information is protected by the Federal Confidentiality of Alcohol and Drug Abuse Patient Records regulations: The Federal rules restrict any use of the information to criminally investigate or prosecute any alcohol or drug abuse patient.[facility]In the event this information is protected by the Federal Confidentiality of Alcohol and Drug Abuse Patient Records regulations: The Federal rules restrict any use of the information to criminally investigate or prosecute any alcohol or drug abuse patient.[facility] HospitalIn the event this information is protected by the Federal Confidentiality of Alcohol and Drug Abuse Patient Records regulations: The Federal rules restrict any use of the information to criminally investigate or prosecute any alcohol or drug abuse patient.[facility] HospitalIn the event this information is protected by the Federal Confidentiality of Alcohol and Drug Abuse Patient Records regulations: The Federal rules restrict any use of the information to criminally investigate or prosecute any alcohol or drug abuse patient.[facility] HospitalIn the event this information is protected by the Federal Confidentiality of Alcohol and Drug Abuse Patient Records regulations: The Federal rules restrict any use of the information to criminally investigate or prosecute any alcohol or drug abuse patient.[facility]In the event this information is protected by the Federal Confidentiality of Alcohol and Drug Abuse Patient Records regulations: The Federal rules restrict any use of the information to criminally investigate or prosecute any alcohol or drug abuse patient.[facility]In the event this information is protected by the Federal Confidentiality of Alcohol and Drug Abuse Patient Records regulations: The Federal rules restrict any use of the information to criminally investigate or prosecute any alcohol or drug abuse patient.[facility] HospitalIn the event this information is protected by the Federal Confidentiality of Alcohol and Drug Abuse Patient Records regulations: The Federal rules restrict any use of the information to criminally investigate or prosecute any alcohol or drug abuse patient.[facility] Reason for Visit (unrecogniz ed section and content) Reason Comments Results Reason Comments request lab order Reason Comments Nasal Congestion Sinus, cough, sore t hroat x 4 days Reason Comments Orders Reason Comments Sinus Problem Last seen here 05/30 , not improving, stopped taking ATB after taking 2 due to reaction to it Reason Comments F/U 6 Month Follow Up BP Reason Comments Consult Colonoscopy consult Specialty Diagnoses / Procedures Referred By Michelle t Referred To Contact General Surgery Diagnoses Family history of colon cancer Screening for colon cancer Procedures CONSULT TO GENERAL SURGERY OFFICE/OUTPATIENT [facility] 60-74 MINUTES Lila Kramer MD [address] [place] [address] Referral ID Status Reason Start Date Expiration Date V isits Requested Visits Authorized [id number] Closed PCP Requested Referral 06/21/2022 06/21/2023 1 1 Reason Comments Palpitations Irregular heart beat Reason Onset Date Comments Refill Request 01/04/2023 Reason Comments Recheck 6 months routine Reason Comments Pre-Op Exam Reason Comments Patient Update Reason Comments Discussion Would like an order for sleep study; snoring, not a restful nights sleep Reason Comments Schedule Surgery Reason Comments Appointment Reason Comments Urinary Frequency Frequency, urgency a nd burning x 1 day Reason Comments Established Patient 4th Trigger finger Pain 4th Trigger finger Reason Comments Cough Dry cough, head maikol estion and pressure, sore throat from coughing, x 1 week Reason Comments Post Op 1 week 4 days post op Left ring trigger release Reason Comments Nasal Congestion x 6 days Care Teams (unrecognized sec tion and content) Cold Saw Operator Relationship Specialty Start Date End Date Lila Kramer MD [address] [place] [address] PCP - General Family Practice 05/10/21 Cold Saw Operator Relationship Specialty Start Date End Date Lila Kramer MD [address] [place] [address] PCP - General Family Practice 05/10/21 Cold Saw Operator Relationship Specialty Start Date End Date Lila Kramer MD [address] [place] [address] PCP - General Family Medicine 05/10/21 Cold Saw Operator Relationship Specialty Start Date End Date Lila Kramer MD [address] [place] [address] PCP - General Family Medicine 05/10/21 Cold Saw Operator Relationship Specialty Start Date End Date Lila Kramer MD [address] [place] [address] PCP - General Family Medicine 05/10/21 Cold Saw Operator Relationship Specialty Start Date End Date Lila Kramer MD [address] [place] [address] PCP - General Family Medicine 05/10/21 Cold Saw Operator Relationship Specialty Start Date End Date Lila Kramer MD [address] [place] [address] PCP - General Family Medicine 05/10/21 Cold Saw Operator Relationship Specialty Start Date End Date Lila Kramer MD [address] [place] [address] PCP - General Family Medicine 05/10/21 Cold Saw Operator Relationship Specialty Start Date End Date Lila Kramer MD [address] [place] [address] PCP - General Family Medicine 05/10/21 Cold Saw Operator Relationship Specialty Start Date End Date Lila Kramer MD [address] [place] [address] PCP - General Family Medicine 05/10/21 Cold Saw Operator Relationship Specialty Start Date End Date Lila Kramer MD [address] [place] [address], [place] [address] PCP - General Family Medicine 05/10/21 Cold Saw Operator Relationship Specialty Start Date End Date Lila Kramer MD [address] [place] [address] PCP - General Family Medicine 05/10/21 Cold Saw Operator Relationship Specialty Start Date End Date Lila Kramer MD [address] [place] [address] PCP - General Family Medicine 05/10/21 Cold Saw Operator Relationship Specialty Start Date End Date Lila Kramer MD [address] [place] [address] PCP - General Family Medicine 05/10/21 Cold Saw Operator Relationship Specialty Start Date End Date Lila Kramer MD [address] [place] [address] PCP - General Family Medicine 05/10/21 Cold Saw Operator Relationship Specialty Start Date End Date Lila Kramer MD [address] [place] [address] PCP - General Family Medicine 05/10/21 Cold Saw Operator Relationship Specialty Start Date End Date Lila Kramer MD [address] [place] [address] PCP - General Family Medicine 05/10/21 (unrecognized sect ion and content) No Status Records Found INFORMATION SOURCE (unrecogn ized section and content) FOR RECORDS PERTAINING TO PATIENTS WHO ARE OR HAVE BEEN ENROLLED IN A CHEMICAL DEPENDENCY/SUBSTANCEABUSE PROGRAM, SOME INFORMATION MAY BE OMITTED. This clinical summary was aggregated from multiple sources. Caution should be exercised in using it in the provision of clinical care. This summary normalizes information from multiple sources, and as a consequence, information in this document may materially change the coding, format and clinical context of patient data. In addition, data may be omitted in some cases. CLINICAL DECISIONS SHOULD BE BASED ON THE PRIMARY CLINICAL RECORDS. [facility]. provides no warranty or guarantee of the accuracy or completeness of information in this document.
[2023-09-01] MEDS: Zolpidem Tartrate 5 MG Tablet PO (21:25)
== END | disposition home or self-care (01) ==
LOC: SL 20:01
PROVIDERS: PCP Family Medicine; Referring Provider Nurse Practitioner Acute Care; Visit Provider Nurse Practitioner Acute Care
DX: G47.33 Obstructive sleep apnea (adult) (pediatric) (principal)
CPT/HCPCS: 95810